=== PATIENT | female | born 1945 | race Caucasian/White ===

== ENCOUNTER 2020-07-27 08:59 | Emergency (ER) | payer MEDICARE, BC, SELFPAY ==
--- NOTE | ~2020-07-27 | XR_ITS ---
EXAMINATION: XR KNEE, LEFT CLINICAL INFORMATION: Pain fall COMPARISON: None TECHNIQUE: Four views of the left knee. FINDINGS: There is a nondisplaced horizontal fracture through the patella. There is knee joint effusion. Distal femur, proximal tibia and fibula are intact. Joint spaces are preserved. XR/XR knee LT 4V IMPRESSION: Nondisplaced horizontal fracture through the patella. Knee joint effusion.
[2020-07-27 09:10] VITALS: BP 132/72; PULSE 85; RESP 14; TEMP 36.5; O2SAT 97; BMI 25.0
--- NOTE | 2020-07-27 09:53 | ED.GENADULT ---
HPI - General Adult General Chief complaint: Extremity Injury, Lower Stated complaint: fall - lt knee and back pain Time Seen by Provider: 07/27/20 09:52 Source: patient Mode of arrival: ambulatory Limitations: no limitations History of Present Illness HPI narrative: 74-year-old female who presents emergency department for evaluation of left knee pain and lower back pain after fall. Patient states that she went for a walk yesterday, hit a patch of ice and fell forward. She states she landed on her left knee. She also believes that she twisted her back when she fell. She was able to get up and finish her walk. She states that today, she has increased pain in her lower back and in her left knee. She states that the lower back pain as a constant, mild to moderate, dull ache which is worse with movement. She states that the the left knee pain is mainly over the kneecap in is worse with movement, the pain is a constant sharp pain which is [id number] in intensity. She denies any head injury or loss of consciousness from the fall. Related Data Allergies Allergy/AdvReac Type Severity Reaction Status Date / Time erythromycin base Allergy Unknown Nausea Unverified 07/27/20 09:09 [Erythromycin Base] Review of Systems Review of Systems: Yes all other systems are reviewed and are negative PMFSH Past Medical History Medical History Asthma Surgical History H/O dilation and curettage Hx of tonsillectomy S/P ear surgery Social History Social History Smoked in Last 30 Days: No Use of substances other than those prescribed or required for medical reasons: No Advance Directives: No Advance Directives Information Provided: No Physical Exam Vital Signs: Vital Signs: Last Vital Signs Temp 98.1 F 07/27/20 12:35 Pulse 78 07/27/20 12:35 Resp 16 07/27/20 12:35 BP 128/73 07/27/20 12:35 Pulse Ox 96 07/27/20 12:35 Body Mass Index 25.0 Const: General: cooperative, healthy appearing and comfortable Nutritional Appearance: average body habitus Orientation/consciousness: oriented to person and oriented to place Limitations: no limitations HENMT: Head: Yes normal to inspection, Yes normocephalic and Yes atraumatic Eyes: General: appearance normal, both eyes and all related structures Pupils: Equal, round and reactive pupils present Neck: Neck: Yes normal visual inspection, Yes full ROM, Yes trachea midline and No tender Chest: Chest palpation & inspection: normal inspection of the chest and normal palpation of entire chest wall Resp: Effort & Inspection: normal respiratory effort Auscultation: clear to auscultation bilaterally Cardio: Rate: regular rate Rhythm: regular rhythm Heart sounds: S1 normal heart sound present, S2 normal heart sound present and no murmurs GI: Inspection: Yes normal to inspection Palpation (GI): Soft to palpation and nontender Auscultation: normal bowel sounds : General: Yes no CVA tenderness Back/Spine/Pelvis: Back: no CVA tenderness Thoracic/Lumbar Spine: thoracic and lumbar spine normal to inspection, straight leg raise negative bilaterally, No thoracic spinal tenderness and No lumbar spinal tenderness Neuro: General: oriented to person and oriented to place Cranial nerves: Yes CN's II-XII intact bilaterally and Yes Equal, round and reactive pupils present Cognition (Neuro): normal cognition Extrem: Other: Ecchymosis with swelling of the left patella bursa, tenderness with palpation to the left knee, full ROM, able to walk without difficulty Course Course Course Narrative: 74-year-old female who fell yesterday landing on her left knee and now presents with left knee and lower back pain. Patient has no significant spinal tenderness therefore do not think that she had spinal x-rays. Patient does have tenderness with palpation over left patella and may have some swelling of her left patella bursa. I did order a four view x-ray of the knee to rule out fracture of the knee/patella. 1344: The patient's x-ray of her knee revealed a nondisplaced patellar fracture. I did discuss this with the patient and with the covering orthopedic MANINDER by text. The patient will be placed in a knee immobilizer and given a cane or crutches. She was given verbal and printed instructions and discharged home. Discharge Plan Discharge Clinical Impression: Left patella fracture, Back sprain, Fall Patient Disposition: Home, Self-Care Instructions: Low Back Strain (ED), Patellar Fracture (ED) Additional Instructions: Your back exam is consistent with a sprain of the soft tissues of her back and I do not think he needs x-rays at this time. The x-ray of your left knee revealed a nondisplaced fracture of the patella (kneecap). Wear the knee immobilizer and use the cane in your right hand. Follow the patella fracture and back strain instructions. Follow-up with the orthopedic provider on-call within 1 week for re-evaluation. Take ibuprofen 200 mg pills, 2 pills every 6 hours as needed for pain. Take Tylenol (acetaminophen) 500 mg pills, 2 pills every 4 to 6 hours as needed for pain. Please return to the emergency department if your symptoms get worse or if you develop any symptoms that are concerning to you.
[2020-07-27 12:35] VITALS: BP 128/73; PULSE 78; RESP 16; TEMP 36.7; O2SAT 96
--- NOTE | 2020-07-27 13:40 | PC.NURSE ---
DR MORENO AT BEDSIDE, PT HAS UTILIZED COLD PACK TO LOWER BACK WHILE AWAITING RESULTS, DECLINED COLD PACK TO KNEE, WATER GIVEN UPON REQUEST
== END 2020-07-27 14:07 | disposition home or self-care (01) ==
PROVIDERS: Emergency Provider Emergency Medicine Emergency Medical Services; PCP Hospitalist
DX: S82.092A Other fracture of left patella, initial encounter for closed fracture (principal); S33.5XXA Sprain of ligaments of lumbar spine, initial encounter; W00.0XXA Fall on same level due to ice and snow, initial encounter; M25.462 Effusion, left knee; Y93.01 Activity, walking, marching and hiking; Y92.480 Sidewalk as the place of occurrence of the external cause; Y99.9 Unspecified external cause status
CPT/HCPCS: 73564; 99283; 99284

== ENCOUNTER → 2020-07-29 11:06 | Outpatient (BNVA) | payer MEDICARE, BC, SELFPAY | PROVIDERS: Visit Provider Physician Assistant | DX: S82.009A Unspecified fracture of unspecified patella, initial encounter for closed fracture (principal) | CPT/HCPCS: 99202 ==

== ENCOUNTER 2020-08-19 11:20 | Outpatient (REF) | payer MEDICARE, BC, SELFPAY ==
--- NOTE | ~2020-08-19 | XR_ITS ---
EXAMINATION: XR KNEE, LEFT CLINICAL INFORMATION: Fracture COMPARISON: Previous x-ray 07/27/2020 TECHNIQUE: Standing AP view of both knees and sunrise view of the left knee of the left knee. FINDINGS: Patella fracture is difficult to visualize. This appears unchanged in alignment on the AP view and not identified on the sunrise view. Bone alignment is normal. Soft tissues are normal. Standing AP view of the right knee is normal. XR/XR knee LT 2V IMPRESSION: Patella fracture difficult to visualize.
== END 2020-08-19 11:21 | disposition home or self-care (01) ==
LOC: HO.HOSX 11:20
PROVIDERS: Visit Provider Physician Assistant
DX: S82.002A Unspecified fracture of left patella, initial encounter for closed fracture (principal); X58.XXXA Exposure to other specified factors, initial encounter; Y93.9 Activity, unspecified; Y92.9 Unspecified place or not applicable; Y99.9 Unspecified external cause status
CPT/HCPCS: 73560; 99212

== ENCOUNTER 2021-01-08 08:45 | Emergency (ER) | payer MEDICARE, BC, SELFPAY ==
--- NOTE | ~2021-01-08 | XR_ITS ---
EXAMINATION: XR KNEE, LEFT CLINICAL INFORMATION: Fall with injury COMPARISON: August 19, 2020 and July 27, 2020 TECHNIQUE: Four views of the left knee. FINDINGS: There is no evidence of acute fracture or dislocation of the left knee. Previously noted fracture is not appreciated. There is degenerative spurring undersurface of the patella. No definite effusion is appreciated. Joint spaces are maintained. XR/XR knee LT 3V IMPRESSION: Degenerative change patellofemoral joint. No definite acute fracture or effusion identified.
--- NOTE | ~2021-01-08 | CT_ITS ---
EXAMINATION: CT FACIAL BONES WITHOUT CONTRAST CLINICAL INFORMATION: Facial bone injury. COMPARISON: None. TECHNIQUE: 3 mm thin axial and 1.5 mm thin sagittal and coronal images of facial bones were obtained without contrast. This CT examination was performed using dose optimization techniques as appropriate, variously including the following: *Automated exposure control *Adjustment of mA and/or kV according to patient size (this includes techniques or standardized protocols for targeted exams where dose is matched to indication/reason for exam; i.e. extremities or head) *Use of iterative reconstruction technique DLP: 1003 mGy-cm. FINDINGS: There is no acute maxillofacial fracture. The pterygoid plates are intact. The zygomatic arches are intact. The lamina papyracea are intact. The orbital rims are intact. There is diffuse mucoperiosteal thickening involving bilateral maxillary, ethmoid, sphenoid and frontal sinuses. No air-fluid level seen. There is mild obliteration of right ostiomeatal complex and bilateral frontoethmoidal recesses from mucoperiosteal thickening. There is a paradoxical left middle turbinate. Mild hypertrophy of the left inferior turbinate is noted. Minimal deviation of the nasal septum is noted without spur. The lamina papyracea are intact. The ethmoid roofs are symmetric. The carotid canals are normally covered by bone. No maxillary periapical disease is seen. The mastoid air cells and visualized middle ear cavities are well-aerated. The orbits are normal. The TMJs are unremarkable. The imaged portions of the brain demonstrate no acute abnormality. Mild degenerative facet joint arthropathy seen in the upper cervical spine. CT/CT facial bones wo con IMPRESSION: No acute maxillofacial, nasal or mandibular fracture. Chronic pansinusitis. Degenerative facet joint arthropathy upper cervical spine.
--- NOTE | ~2021-01-08 | MR_ITS ---
MR BRAIN WITHOUT AND WITH IV CONTRAST CLINICAL INFORMATION: Brain mass seen on CT scan. COMPARISON: Head CT 01/08/2021. TECHNIQUE: Multiplanar, multisequence MRI of the brain was obtained before and after the intravenous administration of 6.5 mL Gadavist. FINDINGS: Redemonstration of a large partially calcified mass within the left aspect of the posterior fossa contacting the undersurface of the left tentorial leaflet and the medial margin of the left sigmoid sinus flow void which is preserved. The lesion measures up to 5 cm TV by 5 cm AP by 5 cm CC. The lesion results in significant mass effect on the left cerebellum, the left middle cerebellar peduncle, and rightward shift of the brainstem. The fourth ventricle remains patent. There is no hydrocephalus, extra-axial surface collection, or herniation. No parenchymal signal abnormality. The major flow voids at the skull base are preserved. There is no acute infarct on diffusion-weighted imaging. There is no intracranial hemorrhage on the gradient recalled echo acquisition. The midline structures are normal. The cerebellar tonsils are normally positioned. The cerebellum and brainstem are normal. The craniocervical junction is normal. Osseous marrow signal intensity is homogenous. The visualized soft tissues are unremarkable. The left frontal sinus is completely opacified and exhibits the sequela of chronic sinusitis. Additional mild to moderate sinus mucosal disease. Hyperostosis frontalis interna. MR/MR head/brain wo/w con IMPRESSION: - There is a large 5 cm partially calcified extra-axial mass within the left aspect of the posterior fossa that is most suggestive of a meningioma. The lesion contacts the medial margin of the left sigmoid sinus which exhibits preserved flow void. The lesion results in significant mass effect on the left cerebellum, the left middle cerebellar peduncle, and rightward shift of the brainstem. The fourth ventricle remains patent. - The left frontal sinus is completely opacified and exhibits the sequela of chronic sinusitis. Additional mild to moderate sinus mucosal disease.
--- NOTE | ~2021-01-08 | CT_ITS ---
EXAMINATION: CT HEAD WITHOUT CONTRAST CLINICAL INFORMATION: Injury. Rule out bleed COMPARISON: None TECHNIQUE: Contiguous axial imaging was performed from the skull base to vertex without intravenous administration of contrast. This CT examination was performed using dose optimization techniques as appropriate, variously including the following: *Automated exposure control *Adjustment of mA and/or kV according to patient size (this includes techniques or standardized protocols for targeted exams where dose is matched to indication/reason for exam; i.e. extremities or head) *Use of iterative reconstruction technique DLP: 694 mGy-cm FINDINGS: Within the left infratentorial region of the cerebellum there is a large partially rim calcified mass measuring 5.3 x 4.4 x 4.0 cm in size which region of origin is difficult to tell as to whether it may be off of the temporal bone or occipital bone. It has heterogeneous density present within it. No uncal or central herniation is appreciated. The lesion is extra-axial. There is midline structure shift of the fourth ventricle by approximately 8 mm. There is no adjacent bony resorption or sclerosis. This has the appearance of a meningioma or meningeal sarcoma. MRI with contrast is recommended. No intracranial hemorrhage is identified. There is mucosal disease seen within the sphenoid sinuses. There is opacification of the left frontal sinus. Mucosal thickening is seen within some ethmoid air cells and the right frontal sinus. Mastoid air cells are aerated. CT/CT head/brain wo con IMPRESSION: Large left extra-axial infratentorial partially rim calcified mass likely related to meningioma or meningeal sarcoma. There is mass effect without evidence of uncal or midline herniation. This critical result was discussed with Dr. Gorman at 10:23 AM on January 08, 2021 and it was ascertained that the content and urgency of the report was understood at the time of direct communication.
[2021-01-08 08:47] VITALS: BP 145/71; PULSE 78; RESP 18; TEMP 35.8; O2SAT 97; BMI 24.1
--- NOTE | 2021-01-08 09:24 | ED.FALL ---
HPI - Fall General Chief Complaint: Fall Stated Complaint: fall Time Seen by Provider: 01/08/21 09:20 History of Present Illness HPI Narrative: Patient complains of pain over the bridge of her nose and 2 black eyes and a bruise on the forehead as well as some left knee pain after tripping and falling yesterday, there was no syncope no fainting no chest pain no dizziness no headache right now she has no headache no nausea or vomiting no blurred vision no dizziness no confusion and she clearly remembers the trip and fall, with no preceding symptoms and remembers everything after the fall Related Data Home Medications Medication Instructions Recorded Confirmed albuterol sulfate 0.63 mg/3 mL 0.63 mg INHALATION Q6H 07/29/20 solution for nebulization Allergies Allergy/AdvReac Type Severity Reaction Status Date / Time erythromycin base Allergy Unknown Nausea Verified 08/19/20 11:30 [Erythromycin Base] Review of Systems Review of Systems: Positive for bruising on forehead and abrasion over nose Negatives are no headache no loss of consciousness no dizziness no vision changes no retrograde amnesia, no preceding dizziness no dizziness no fainting no feeling faint no vision blurriness no neck pain no numbness weakness or tingling no chest pain no shortness of breath no palpitations no abdominal pain no nausea or vomiting no back pain no changes to bowel or bladder Yes all other systems are reviewed and are negative PMFSH Past Medical History Source: nursing notes reviewed Medical History Asthma Surgical History H/O dilation and curettage Hx of tonsillectomy S/P ear surgery Social History Social History Advance Directives: No Advance Directives Information Provided: No Physical Exam Vital Signs: Vital Signs: Last Vital Signs Temp 98.5 F 01/08/21 14:53 Pulse 89 01/08/21 14:53 Resp 16 01/08/21 14:53 BP 134/76 01/08/21 14:53 Pulse Ox 96 01/08/21 14:53 Body Mass Index 24.1 General appearance is no acute distress, the patient is cooperative relaxed The head has an abrasion on the nose, there is mild tenderness to the forehead, there is ecchymosis below both eyes There is no scalp hematoma no tenderness or deformity to the scalp there is no Coffman sign there is no hemotympanum in the ears Pupils equal round reactive to light extraocular motions are intact Neck is supple and nontender The chest is clear to auscultation bilateral Abdomen soft nontender Extremities full range of motion x4 The left knee exam there was some tenderness over the anterior left knee but no deformity no obvious effusion, she could flex it to 90 degrees extend to 180, no obvious ligamentous laxity Neuro gait and balance are normal, cranial nerves 2-12 intact as tested Motor is 5/5 x4 Interaction both expression and comprehension are normal there is no facial asymmetry, sensation is intact and symmetrical in extremities Course Course Course Narrative: CT scan of face and head were done and did not show any acute traumatic injuries but did reveal a mass The radiologist called me and said it appeared to be a meningioma but could not rule out the possibility of meningeal sarcoma and advised MRI for further evaluation of the mass MRI was done and showed a large 5 cm partially calcified extra-axial mass in the left aspect of the posterior fossa. It produce significant mass effect on the left cerebellum and a rightward shift of the brainstem, most likely a meningioma This was discussed with attending physician Michelle who agreed that this did not need emergent neuro surgical intervention but needed close follow-up I contacted the patient's primary care physician who said that he will facilitate close follow-up with Neurosurgery at [facility] I discussed it with both the patient who has full faculties and understanding as well as her daughter explaining that this does not need emergency treatment today but needs neuro surgical evaluation and guidance in the near future within 2 weeks to determine the best plan They understood this and will follow with the primary care doctor with their referral The patient is asymptomatic has no headache has no blurred vision and no neurologic deficit Patient had also complained about left knee pain in this fall and the x-ray did not reveal any broken bones, patient can not ambulate easily but with a limp and will follow with orthopedist if needed for this problem MDM - Fall Lab Data Result diagrams: 01/08/21 11:03 01/08/21 11:03 Labs: Lab Results 01/08/21 01/08/21 Range/Units 11:03 11:03 WBC 10.7 (4.8-10.8) X10*3/uL RBC 4.89 (4.20-5.50) X10*6/uL Hgb 15.1 (12.0-16.0) g/dl Hct 44.5 (37-47) % MCV 91.0 (80-98) fL MCH 30.9 (27.0-33.0) pg MCHC 33.9 (31.0-35.0) g/dl RDW 13.5 (11.0-16.0) % Plt Count 265 (160-400) X10*3/uL MPV 9.6 (9.4-12.3) fL Immature Gran % (Auto) 0.4 (0.0-0.4) % Neut % (Auto) 80.6 H (45-73) % Lymph % (Auto) 8.7 L (20-40) % [place] % (Auto) 8.8 (2-11) % Eos % (Auto) 1.0 (0-4) % Baso % (Auto) 0.5 (0-2) % Lymph # (Auto) 0.9 L (1.2-4.9) X10*3/uL [place] # (Auto) 0.9 (0.1-1.2) X10*3/uL Eos # (Auto) 0.1 (0.0-0.4) X10*3/uL Baso # (Auto) 0.1 (0.0-0.2) X10*3/uL Abs Immat Gran (auto) 0.04 H (0.00-0.03) X10*3/uL Absolute Neuts (auto) 8.6 H (2.0-8.3) X10*3/uL Absolute Nucleated RBC 0.000 (0.0-0.012) X10*3/uL Nucleated RBC % (auto) 0.0 (0.0-0.2) /100WBC Sodium 138 (135-145) mmol/L Potassium 3.8 (3.3-5.1) mmol/L Chloride 103 (96-108) mmol/L Carbon Dioxide 24 (22-29) mmol/L Anion Gap 15 (12-20) BUN 13 (9-16) mg/dL Creatinine 0.74 (0.5-1.4) mg/dL Estim Creat Clear Calc 57.2 Estimated GFR > 60 Random Glucose 90 (60-115) mg/dL Calcium 9.2 (8.4-10.2) mg/dL Discharge Plan Discharge Clinical Impression: Meningioma Patient Disposition: Home, Self-Care Additional Instructions: our CT and MRI demonstrated a large meningioma which may be a malignancy To know the best treatment you will need to see a neurosurgeon for further evaluation within 2 weeks I spoke with your primary doctor who said he will facilitate a referral to a neurosurgeon so follow closely with the primary doctor and you will have an appointment with a neurosurgeon I am giving you a copy of the report and we are giving you a disc to bring to the neurosurgeon so they can see the images The x-ray of her knee showed arthritis but no traumatic injury Follow with primary doctor or orthopedist as needed Referrals: Tyrese Harris MD [Physician] - 2 days (Knee arthritis) Interventions: ED Discharge Assessment Last Done: 01/08/21 15:58 Discharge Date/Time: 01/08/21 15:59
[2021-01-08 11:06] VITALS: BP 146/78; PULSE 78; RESP 16; O2SAT 98
[2021-01-08 11:09] LABS: MANUAL DIFF FLAG NO
[2021-01-08 11:11] LABS: Basophils Absolute Auto 0.1 X10*3/uL (0.0-0.2); Basophils Percent Auto 0.5 % (0-2); Eosinophils Absolute Auto 0.1 X10*3/uL (0.0-0.4); Hematocrit 44.5 % (37-47); Hemoglobin 15.1 g/dl (12.0-16.0); Imm Gran Abs Auto 0.04 X10*3/uL (0.00-0.03); Imm Gran Pct Auto 0.4 % (0.0-0.4); Lymphocytes Absolute Auto 0.9 X10*3/uL (1.2-4.9); Lymphocytes Percent Auto 8.7 % (20-40); Mean Corpuscular HGB Conc 33.9 g/dl (31.0-35.0); Mean Corpuscular Hemoglobin 30.9 pg (27.0-33.0); Mean Platelet Volume 9.6 fL (9.4-12.3); Monocytes Absolute Auto 0.9 X10*3/uL (0.1-1.2); Monocytes Percent Auto 8.8 % (2-11); Neutrophils Absolute Auto 8.6 X10*3/uL (2.0-8.3); Neutrophils Percent Auto 80.6 % (45-73); Platelet Count 265 X10*3/uL (160-400); Red Blood Count 4.89 X10*6/uL (4.20-5.50); Red Cell Distribution Width 13.5 % (11.0-16.0); White Blood Count 10.7 X10*3/uL (4.8-10.8)
[2021-01-08 12:37] LABS: Anion Gap 15 (12-20); Blood Urea Nitrogen 13 mg/dL (9-16); Calcium 9.2 mg/dL (8.4-10.2); Carbon Dioxide 24 mmol/L (22-29); Chloride 103 mmol/L (96-108); Creatinine Clr Calc Pharmacy 57.2; Estimated Glomerular Filt Rate > 60; Glucose Random 90 mg/dL (60-115); Potassium 3.8 mmol/L (3.3-5.1); Sodium 138 mmol/L (135-145)
[2021-01-08 14:53] VITALS: BP 134/76; PULSE 89; RESP 16; TEMP 36.9; O2SAT 96
== END 2021-01-08 15:59 | disposition home or self-care (01) ==
PROVIDERS: Physician Assistant Medical; Emergency Provider Emergency Medicine Emergency Medical Services; PCP Hospitalist
DX: D32.9 Benign neoplasm of meninges, unspecified (principal); M25.562 Pain in left knee; Z91.81 History of falling
CPT/HCPCS: 36415; 70450; 70486; 70553; 73562; 80048; 85025; 99284; 99285; A9585

== ENCOUNTER 2023-12-23 10:22 | Outpatient (AMB) | payer MEDICARE, BC, SELFPAY ==
--- NOTE | 2023-12-23 10:43 | AM.OFFWIN_ITS ---
Intake Vital Signs 12/23/23 10:44 Height 5 ft 5 in Weight 137 lb BMI 22.8 BP 114/76 Blood Pressure Location Lt brachial Position Sitting Pulse 90 Pulse Source Pulse Oximeter Temp Source Oral Pulse Oximetry (%) 98 Oxygen Delivery Method Room Air Intake Visit Reasons: Lt Middle finger infected Intake Note: pt here c/o LT middle finger infection, swelling and pain. Bumped against metal railing, happened 3 days ago Patient Tobacco Use Status: Never used Tobacco Allergies erythromycin base [Erythromycin Base] Allergy (Unknown, Verified 12/23/23 10:44) Nausea Do you need a note to return to daycare/school/sports/work: No HPI Lt Middle finger infected HPI Details This note is constructed using voice recognition software. While every effort has been made to ensure accuracy, professional fighter errors may have been included. The patient is a 78 year old female who presents to the clinic today with concern for left 3rd finger infection. She notes that she hit her finger on a metal bar, it immediately bled, she cleaned it, however the area developed swelling, erythema, and warmth. She does not recall when her last tetanus shot was. She has not done anything to help resolve the area other than apply Neosporin. No fever, chills, or streaking. [facility] Medical History Asthma Surgical History H/O dilation and curettage Hx of tonsillectomy S/P ear surgery Social History Patient Tobacco Use Status: Never used Tobacco Review of Systems Const All systems reviewed & are unremarkable except as noted in HPI and below Physical Exam Vital Signs: Last Vital Signs Pulse 90 12/23/23 10:44 BP 114/76 12/23/23 10:44 Pulse Ox 98 12/23/23 10:44 Oxygen Delivery Method Room Air 12/23/23 10:44 BMI result Body Mass Index 22.8 Const General: cooperative, healthy appearing, comfortable, no acute distress and alert Orientation/consciousness: patient oriented x3 Limitations: no limitations Skin Other: Left 3rd finger erythema from DIP distally, and medially, with point centralized from previous opening. Area is warm, and slightly tender. Strength 5/5 on flexion and extension. General skin exam: no rashes or lesions noted, elasticity normal and turgor normal Neuro General: patient oriented x3 Extrem General: Yes normal to inspection, Yes full ROM, Yes capillary refill normal and Yes normal exam except as noted Psych Appearance: grossly normal Mental Status: mental status grossly normal Speech and movement: Normal speech and movement present Affect: normal affect Assessment & Plan Assessment & Plan (1) Cellulitis of finger of left hand: Code(s): L03.012 - Cellulitis of left finger Plan: Antimicrobial therapy ordered with Keflex for cellulitis. Patient may soak finger in water with Epsom salt. Advised to keep area clean and dry. Advised follow up with PCP for lack of improvement after 48 hours of treatment. Advised monitoring for erythematous streaking which we would be indication of worsening infection, and advised emergency room should that occur. Additionally given puncture wound, tetanus immunization provided today as she was unsure if the previous date. (2) Puncture wound: Code(s): T14.8XXA - Other injury of unspecified body region, initial encounter Plan: At this point in time, it appears to have resolved. We will also provide tetanus immunization today given unknown previous immunization. Plan See above for full details and plan. Orders: Orders TDaP Immunization Today Z23 - Encounter for immunization Medications: New cephalexin 500 mg PO QID 28 caps 0RF 7 days Boostrix Tdap (diphth,pertus(acell),tetanus) 0.5 mL IM ONCE 0.5 mL 0RF NS Z23 - Encounter for immunization Coding Level of Care Code Est Pt Level 3 (21318) Diagnoses Cellulitis of finger of left hand L03.012 Puncture wound T14.8XXA
[2023-12-23 10:44] VITALS: BP 114/76; PULSE 90; O2SAT 98; BMI 22.8
== END 2023-12-23 11:31 | disposition home or self-care (01) ==
PROVIDERS: PCP Hospitalist; Visit Provider Registered Nurse
DX: L03.012 Cellulitis of left finger (principal); T14.8XXA Other injury of unspecified body region, initial encounter
CPT/HCPCS: 90471; 90715; 99213

== ENCOUNTER 2025-04-04 12:51 | Inpatient (IN) | payer MEDICARE, SELFPAY ==
--- OUTSIDE RECORDS SUMMARY | 2024-08-08 05:30 | XMS_ITS ---
Author Organization [facility] Address [address] [place] [address] Care Team Providers Care Lead Applications Developer Name Role Phone Jayme FOWLER, Janelle Primary Care Provider Unavail able Black, Tata Unavailable [phone] Chelly Perry Unavailable [phone] Allergies Allergen (clinical drug ingredient) Drug/Non Drug [...] No Encounters Encounter Location Date Provider Diagnosis [facility] [place] [address] [place] [address] 08/08/2024 Chelly Perry Plan Of Treatment Next Appt Details Provider Name:Tata Coates , 04/09/2025 11:30:00 AM, [address] [place], [address], Progress Notes * Aysha MADISON CDOB: [birth year] (79 yo F)Acc No.[id number]:08/08/2024 Progress Notes Patient: Aysha SINGH Provider: Varsha Perry DPM :1945 A ge:78 Y S ex:Female Date:08/08/2024 Address:[address] [place], [place] [id number] Pcp:Janelle Delacruz NP Subjective: * Chief Complaints: [...] enies. C ardiovascular: Pacemaker d enies. 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 W PW d enies. C [...] 0 08/08/2024 Generated for Sarah Cruz/[place] on: 06/04/2024 04:38 PM EST
[2025-04-04] VITALS (11 sets, daily range): BP systolic 117–148; BP diastolic 60–89; PULSE 75–96; RESP 15–21; TEMP 36.3–37.2; O2SAT 92–98; BMI 24.4; BMI 23.7
--- NOTE | ~2025-04-04 | XR_ITS ---
EXAMINATION: XR HIP, LEFT CLINICAL INFORMATION: fall, left hip fracture COMPARISON: None available. TECHNIQUE: AP pelvis, AP supine, and frog-leg lateral views of the left hip. FINDINGS: There is intra-articular fracture involving the left femur extending across the femoral neck. There is proximal and anterior migration of the femur and varus deformity. No other fractures identified. XR/XR hip LT w [id number] IMPRESSION: Acute left femoral neck fracture. Electronically signed by: Iglesia Ceja MD 04/04/2025 01:38 PM EST RP
--- NOTE | ~2025-04-04 | CT_ITS ---
EXAMINATION: CT HEAD WITHOUT CONTRAST CLINICAL INFORMATION: Fall, patient on blood thinners. Known meningioma. COMPARISON: CT head and MR brain 01/08/2021. TECHNIQUE: Contiguous axial imaging was performed from the skull base to vertex without intravenous administration of contrast. This CT examination was performed using dose optimization techniques as appropriate, variously including the following: *Automated exposure control *Adjustment of mA and/or kV according to patient size (this includes techniques or standardized protocols for targeted exams where dose is matched to indication/reason for exam; i.e. extremities or head) *Use of iterative reconstruction technique FINDINGS: There is a large peripherally calcified hyperattenuating extra-axial mass in the left aspect of the posterior fossa, measuring approximately 3.9 x 5.1 x 4.9 cm (AP, TRV, CC). This is most consistent with a stable known meningioma, previously seen on prior imaging from 2020. There is mild surrounding vasogenic edema extending into the left brachium pontis, rightward shift of the fourth ventricle with moderate effacement, and superior bowing of the left tentorium. There is mild mass effect and rightward shift involving the left funmilayo and midbrain, stable. The overall appearance is not significantly changed from 01/08/2021 examination. There is otherwise no evidence of intracranial hemorrhage, extra-axial fluid collection, or acute territorial infarct infarction. No additional mass effect or edema. The lateral and third ventricles are normal in size and configuration. There is no supratentorial midline shift. Negative hyperdense MCA sign. Negative insular ribbon sign. Patchy periventricular and deep white matter hypoattenuation is consistent with mild small vessel ischemic changes. Partial empty sella. Globes and orbital contents image normally. There are bilateral lens replacements. No extracranial soft tissue abnormalities. Mild to moderate mucosal thickening is seen throughout the right greater than left maxillary sinuses, bilateral sphenoid sinuses, and bilateral ethmoid sinuses. The mastoid air cells, and tympanic cavities are normally aerated. No suspicious bony abnormalities. There are no acute fractures evident. There is hyperostosis frontalis internus. CT/CT head/brain wo IV con IMPRESSION: 1. Compared with 01/08/2021, there is an essentially stable large peripherally calcified extra-axial meningioma in the left posterior fossa measuring approximately 3.9 x 5.1 x 4.9 cm. This is essentially unchanged in size. There is similar associated mass effect and perilesional edema in the left posterior fossa as described. 2. There is otherwise no acute intracranial abnormality. There is no fracture evident. 3. There is mild to moderate paranasal sinus disease. Electronically signed by: Quincy Paredes MD 04/04/2025 02:37 PM [facility]I
--- NOTE | ~2025-04-04 | XR_ITS ---
CLINICAL HISTORY: s p Lt hip lillian Single view of the pelvis. COMPARISON: XR left hip dated 04/04/25 at 13:24 EST FINDINGS: Interval left total hip arthroplasty appears in anatomic alignment. No evidence of hardware loosening or failure. Pelvic ring appears intact. Degenerative changes of the partially visualized lower lumbar spine. Visualized portions of the proximal right femur appear intact. IMPRESSION: 1. Anatomic alignment of left total hip arthroplasty without evidence of acute complication. This document has been electronically signed by: Vic Gallegos MD on 04/04/2025 18:21:51
--- NOTE | ~2025-04-04 | XR_ITS ---
EXAMINATION: XR CHEST 1 VIEW HISTORY: fall COMPARISON: There are no prior studies available for comparison. FINDINGS: A single AP portable view of the chest performed at 1:33 PM is submitted. The lungs are expanded and clear. There is no pleural effusion, pneumothorax, or pulmonary vascular congestion. The heart is normal in size. The bones are intact. XR/XR chest 1V IMPRESSION: Clear lungs. Electronically signed by: Leonard Mobley MD 04/04/2025 01:36 PM [facility]
--- NOTE | 2025-04-04 13:13 | ED.FALL ---
HPI - Fall General Chief Complaint: Fall Stated Complaint: WIT FALL X2, LT HIP PAIN -ELLEN Time Seen by Provider: 04/04/25 13:10 Source: patient and EMS Mode of arrival: EMS Limitations: no limitations History of Present Illness ED Provider: JENNIFER CASTRO PA-C HPI Narrative: 79-year-old female presents to the ED today for evaluation of left hip pain status post fall x2 today while at [facility]. Patient reports losing her balance on entrance into the store, fell directly onto her left hip. She was able to stand and ambulate to the pharmacy. Reports sitting down in upon standing, felt her left leg gave out, causing her to fall onto her left hip for 2nd time. She is no longer able to stand/ambulate. Staff at [facility] then called EMS. Patient denies any head strike or LOC. Denies any preceding symptoms. Denies any numbness/tingling/weakness of the left lower extremity. Denies headache or neck pain. Last meal around 0700 today. Related Data Home Medications ?Medication ?Instructions ?Recorded ?Confirmed albuterol sulfate 90 mcg/actuation inhalation 12/23/23 aerosol inhaler atorvastatin 10 mg tablet 10 mg PO DAILY 12/23/23 fluticasone 250 mcg-salmeterol 50 1 ea inhalation BID 12/23/23 mcg/dose blistr powdr for inhalation (Kayden Cowart) Previous Rx's ?Medication ?Instructions ?Recorded cephalexin 500 mg capsule 500 mg PO QID 7 days #28 caps 12/23/23 Allergies Allergy/AdvReac Type Severity Reaction Status Date / Time erythromycin base Allergy Unknown Nausea Verified 04/04/25 13:02 (Erythromycin Base) Review of Systems Review of Systems: Yes all other systems are reviewed and are negative PMFSH Past Medical History Attestation statement: The following information was validated with the patient. Source: old records reviewed and nursing notes reviewed Medical History Asthma Surgical History S/P ear surgery H/O dilation and curettage Hx of tonsillectomy Social History Social History Patient Tobacco Use Status: Never used Tobacco Smoked in Last 30 Days: No Use of substances other than those prescribed or required for medical reasons: No Advance Directives: No Advance Directives Information Provided: Yes Do you have a plan to hurt others: No Plan Physical Exam Vital Signs: Vital Signs: Last Vital Signs Temp 97.8 F 04/04/25 14:56 Pulse 90 04/04/25 14:56 Resp 15 04/04/25 14:56 BP 148/84 H 04/04/25 14:56 Pulse Ox 95 04/04/25 14:56 O2 Del Method Room Air 04/04/25 14:56 BMI result Body Mass Index 24.4 Hypertensive, vitals otherwise WNL General: Well appearing, in no acute distress. Skin: Warm, dry, intact. No rashes or lesions. Head: Normocephalic, atraumatic. No conroy sign, raccoon eyes. EENT: Hearing is intact b/l. Conjunctiva clear. Sclera is anicteric. PERRLA. EOM intact. Moist mucous membranes.? Cardiac: Chest wall symmetric. RRR Lungs: Normal respiratory effort without accessory muscle use. CTA bilaterally. Back: No midline spinous or paraspinal tenderness. No step off deformity. Ext: + left leg shortened, externally rotated. No obvious deformity to left hip however there is palpable step-off along lateral aspect. No palpable fluctuance. No overlying ecchymosis or hematoma. Unable to perform ROM of left hip. Full ROM intact to left ankle/toes. 2+ DP pulse intact. Sensation intact. Neuro: AOx3. Normal speech. Course Course Course Narrative: CBC showing slight leukocytosis to 11.4 with shift. No anemia. H&H stable. Chemistry without acute electrolyte abnormality requiring intervention. No ANNIKA. liver function wnl. coags pending. ekg showing normal sinus rhythm with a rate of 87 beats per minute, QT 396, QTC 476. No acute ischemic changes or ST elevations. Chest x-ray is unremarkable. X-ray of left hip showing a left femoral neck fracture, consistent with my exam findings. > patient medicated with IV Tylenol > I spoke to orthopedic NELL Burrell who recommends admission to medicine with plan for OR in about 1 hour > I spoke with hospitalist luis e who will be down to medically clear the patient and admit > patient agreeable with plan and stable at this time. Medications Administered Discontinued Medications Generic Name Dose Route Start Last Admin Trade Name Evonne PRN Reason Stop Dose Admin Acetaminophen 1,000 mg in 100 mls @ 400 mls/hr 04/04/25 14:20 04/04/25 15:06 Ofirmev IV 04/04/25 14:34 Infused ONCE ONE Infusion Medical Decision Making Medical Decision Making [facility] Narrative: 79-year-old female presents to the ED today for evaluation of left hip pain status post fall x2 today while at [facility]. She is hypertensive, vitals otherwise WNL. She is generally well-appearing and in no acute distress. On exam, left leg shortened, externally rotated. No obvious deformity to left hip however there is palpable step-off along lateral aspect. No palpable fluctuance. No overlying ecchymosis or hematoma. Unable to perform ROM of left hip. Full ROM intact to left ankle/toes. 2+ DP pulse intact. Sensation intact. Differential diagnosis includes contusion, fracture, dislocation. Less likely neurovascular compromise. Unlikely DVT, compartment syndrome, threat to limb. Patient's left hip appears to be fractured. I have ordered x-rays of the left hip however will add on chest x-ray, EKG, screening labs, type and screen for surgical clearance. IV Tylenol ordered for pain. Differential Diagnosis Differential Diagnoses: The differential diagnosis associated with the presentation includes as above. Admission/Observation Consideration of admission/observation: Escalation of care including admission/observation considered Patient admitted to the medical service or management of left femoral neck fracture with plan for OR Consult Healthcare Provider Management of the patient was discussed with: Hospitalist (sonja) and Prop And Scenery Maker (amanda burrell ) Lab Data [facility] Lab Attestation statement: I reviewed the patient's lab results. As above 04/04/25 14:33 04/04/25 14:33 Labs: Lab Results 04/04/25 Range/Units 14:33 WBC 11.4 H (4.8-10.8) X10*3/uL RBC 4.74 (4.20-5.50) X10*6/uL Hgb 15.0 (12.0-16.0) g/dl Hct 43.3 (37.0-47.0) % MCV 91.4 (80.0-98.0) fL MCH 31.6 (27.0-33.0) pg MCHC 34.6 (31.0-35.0) g/dl RDW 12.7 (11.0-16.0) % Plt Count 286 (160-400) X10*3/uL MPV 9.8 (9.4-12.3) fL Immature Gran % (Auto) 0.4 (0.0-0.4) % Neut % (Auto) 82.9 H (45-73) % Lymph % (Auto) 9.5 L (20-40) % [place] % (Auto) 5.6 (2-11) % Eos % (Auto) 1.1 (0-4) % Baso % (Auto) 0.5 (0-2) % Lymph # (Auto) 1.1 L (1.2-4.9) X10*3/uL [place] # (Auto) 0.6 (0.1-1.2) X10*3/uL Eos # (Auto) 0.1 (0.0-0.4) X10*3/uL Baso # (Auto) 0.1 (0.0-0.2) X10*3/uL Abs Immat Gran (auto) 0.05 H (0.00-0.03) X10*3/uL Absolute Neuts (auto) 9.5 H (2.0-8.3) x10*3/uL Absolute Nucleated RBC 0.000 (0.0-0.012) X10*3/uL Nucleated RBC % (auto) 0.0 (0.0-0.2) /100WBC Sodium 137 (135-145) mmol/L Potassium 3.9 (3.3-5.1) mmol/L Chloride 103 (96-108) mmol/L Carbon Dioxide 26 (22-29) mmol/L Anion Gap 12 (12-20) BUN 18 H (9-16) mg/dL Creatinine 0.67 (0.5-1.4) mg/dL Estim Creat Clear Calc 59.2 Estimated GFR > 60 Random Glucose 101 (60-115) mg/dL Calcium 9.0 (8.4-10.2) mg/dL Total Bilirubin 0.7 (0.0-1.0) mg/dL AST 32 H (5-31) U/L ALT 25 (0-31) U/L Alkaline Phosphatase 61 (39-117) U/L Total Protein 7.0 (6.5-8.0) g/dL Albumin 4.2 (3.5-5.0) g/dL Blood Type AB Positive Antibody Screen NEGATIVE Independent Interpretation I performed an independent interpretation of an: Plain X-Ray and CT Scan Interpretation: Chest x-ray without infiltrate or consolidation X-ray left hip with left femoral neck fracture CT head without intracranial bleed. meningioma noted to left, similar in appearance when compared to prior scans. Radiology Impression Discussion of test interpretation with radiology: I have reviewed the radiologist's reading. Radiologist Impression: Procedure(s): XR chest 1V Accession Number(s): [id number] cc: Jennifer Castro~ Reason for Exam: fall EXAMINATION: XR CHEST 1 VIEW HISTORY: fall COMPARISON: There are no prior studies available for comparison. FINDINGS: A single AP portable view of the chest performed at 1:33 PM is submitted. The lungs are expanded and clear. There is no pleural effusion, pneumothorax, or pulmonary vascular congestion. The heart is normal in size. The bones are intact. XR/XR chest 1V IMPRESSION: Clear lungs. Electronically signed by: Leonard Mobley MD 04/04/2025 01:36 PM EST RP Procedure(s): XR hip LT w PEL1V Accession Number(s): [id number] cc: Ermias Andrea DO~ Reason for Exam: fall EXAMINATION: XR HIP, LEFT CLINICAL INFORMATION: fall, left hip fracture COMPARISON: None available. TECHNIQUE: AP pelvis, AP supine, and frog-leg lateral views of the left hip. FINDINGS: There is intra-articular fracture involving the left femur extending across the femoral neck. There is proximal and anterior migration of the femur and varus deformity. No other fractures identified. XR/XR hip LT w [id number] IMPRESSION: Acute left femoral neck fracture. Electronically signed by: Iglesia Ceja MD 04/04/2025 01:38 PM EST RP Independent Historian Clinical information obtained from an independent historian. History obtained from or confirmed by: EMS External Record Review External record reviewed: Inpatient record Prescription Management I considered prescription management with: Pain Medication Social Determinants Patient?s care significantly limited by Social Determinants of Health including: Other Social Determinant of Health Critical Care Time Critical Care Time Critical Care Time: Yes Total Critical Care Time: 35 Attestation: Critical care time in the amount of 35 minutes has been provided to the patient in terms of direct patient care, frequent reevaluation, consultation with ortho and hospitalist, review and interpretation of medical data and results, and management of potentially life-threatening conditions. This is all outside of any medical procedures. Discharge Plan Discharge Clinical Impression: Closed fracture of neck of left femur, Fall Patient Disposition: Admitted As Inpatient Print Language: Korean
--- NOTE | 2025-04-04 13:44 | ECG_ITS ---
Test Reason : hip fracture Blood Pressure : */* mmHG Vent. Rate : 87 BPM Atrial Rate : 87 BPM P-R Int : 204 ms QRS Dur : 90 ms QT Int : 396 ms P-R-T Axes : 74 42 57 degrees QTcB Int : 476 ms Normal sinus rhythm Normal ECG No previous ECGs available Referred By: Jennifer Castro Electronically Signed By: Dudley Naik
--- NOTE | 2025-04-04 14:33 | PC.NURSE ---
zena from [facility] s/p witnessed fall x 2. pt was walking into the store/lost balance/tripped/landing on left hip. able to self ambulate s/p 1st event. sat in chair/stood up to get prescriptions where she then collapsed landing on left hip for second time. -headstrike, -loc, -thinners. refused c-collar via EMS. upon ED arrival - pt a&ox4. vss and up to date. +LLE shortening noted - pending XR to be completed at this time. pt otherwise on RA w/o difficulty - no sob/wob noted. respirations even/unlabored. plan of care ongoing. call buckley placed within reach.
[2025-04-04 14:52] LABS: MANUAL DIFF FLAG NO
[2025-04-04 14:58] LABS: Hematocrit 43.3 % (37.0-47.0); Hemoglobin 15.0 g/dl (12.0-16.0); Imm Gran Abs Auto 0.05 X10*3/uL (0.00-0.03); Imm Gran Pct Auto 0.4 % (0.0-0.4); Lymphocytes Absolute Auto 1.1 X10*3/uL (1.2-4.9); Mean Corpuscular HGB Conc 34.6 g/dl (31.0-35.0); Mean Corpuscular Hemoglobin 31.6 pg (27.0-33.0); Mean Corpuscular Volume 91.4 fL (80.0-98.0); NRBC Abs Auto 0.000 X10*3/uL (0.0-0.012); NRBC Pct Auto 0.0 /100WBC (0.0-0.2); Platelet Count 286 X10*3/uL (160-400); Red Blood Count 4.74 X10*6/uL (4.20-5.50); White Blood Count 11.4 X10*3/uL (4.8-10.8)
--- NOTE | 2025-04-04 15:05 | PC.NURSE ---
report provided to RN in PACU at this time. hospitalist bedside speaking w/ pt.
--- NOTE | 2025-04-04 15:21 | HO.ANESPROP2 ---
HPI - Anesthesia Eval Consult details Narrative: left hip fracture, for left lillian PMFSH Active Problems Active Problems: All Active Problems Fall (Acute) Closed fracture of neck of left femur (Acute) Patella fracture (Acute) Past Medical History Medical History Asthma Family History Family history of problems with anesthesia: No Surgical History Surgical History S/P ear surgery H/O dilation and curettage Hx of tonsillectomy History of Problems with Anesthesia: No Social History Social History Patient Tobacco Use Status: Never used Tobacco Advance Directives: No Advance Directives Information Provided: Yes Do you have a plan to hurt others: No Plan Meds Allergies Allergy/AdvReac Type Severity Reaction Status Date / Time erythromycin base Allergy Unknown Nausea Verified 04/04/25 13:02 (Erythromycin Base) Home Medications ?Medication ?Instructions ?Recorded ?Confirmed ?Last Taken ?Type albuterol sulfate 90 mcg/actuation inhalation 12/23/23 Unknown History aerosol inhaler atorvastatin 10 mg tablet 10 mg PO DAILY 12/23/23 Unknown History fluticasone 250 mcg-salmeterol 50 1 ea inhalation BID 12/23/23 Unknown History mcg/dose blistr powdr for inhalation (Chandrakantxela Inhub) Exam Height,Weight and Vital Signs: Height 5 ft 5 in Weight 66.6 kg Last Vital Signs Temp 97.8 F 04/04/25 14:56 Pulse 90 04/04/25 14:56 Resp 15 04/04/25 14:56 BP 148/84 H 04/04/25 14:56 Pulse Ox 95 04/04/25 14:56 O2 Del Method Room Air 04/04/25 14:56 Pertinent Lab Results Pertinent Lab Results: Laboratory Tests 04/04/25 14:33 WBC 11.4 H RBC 4.74 Hgb 15.0 Hct 43.3 MCV 91.4 MCH 31.6 MCHC 34.6 RDW 12.7 Plt Count 286 MPV 9.8 Immature Gran % (Auto) 0.4 Neut % (Auto) 82.9 H Lymph % (Auto) 9.5 L Schley % (Auto) 5.6 Eos % (Auto) 1.1 Baso % (Auto) 0.5 Lymph # (Auto) 1.1 L Schley # (Auto) 0.6 Eos # (Auto) 0.1 Baso # (Auto) 0.1 Abs Immat Gran (auto) 0.05 H Absolute Neuts (auto) 9.5 H Absolute Nucleated RBC 0.000 Nucleated RBC % (auto) 0.0 Airway Mallampati Class: II TM Dist: >3cm Neck ROM: Limited Heart: rrr Lungs: cta Assessment and Plan Assessment Anesthesia Assessment: Anesthesia Plan Discussed and Chart Reviewed Final Anesthetic Review Family History of Problems with Anesthesia: No History of Problems with Anesthesia: No NPO: Yes ASA Class: II and Emergency Final Preanesthetic Review: No Changes in Pt Med Stat, Meds/Allgs Chart Reviewed, Consent Obtained/Reviewed and Anes Risks/Benef Reviewed Patient Risk: Low Procedure Risk: Intermediate Anesthetic Plan Anesthetic Plan: GA and Agree w/ Assess. and Plan Disposition: Standard PACU
[2025-04-04 15:23] LABS: Alanine Aminotransferase 25 U/L (0-31); Albumin Level 4.2 g/dL (3.5-5.0); Alkaline Phosphatase 61 U/L (39-117); Anion Gap 12 (12-20); Aspartate Amino Transferase 32 U/L (5-31); Blood Urea Nitrogen 18 mg/dL (9-16); Calcium 9.0 mg/dL (8.4-10.2); Carbon Dioxide 26 mmol/L (22-29); Chloride 103 mmol/L (96-108); Creatinine Clr Calc Pharmacy 59.2; Estimated Glomerular Filt Rate > 60; Potassium 3.9 mmol/L (3.3-5.1); Sodium 137 mmol/L (135-145); Total Protein 7.0 g/dL (6.5-8.0)
[2025-04-04 15:40] LABS: INTERNATIONAL NORM RATIO 0.9 (0.9-1.1); Prothrombin Time 11.6 SEC (11.2-13.5)
--- NOTE | 2025-04-04 15:45 | PC.NURSE ---
18fr calderon catheter placed for fluid management per MD order. 400ml of clear/dark yellow/non-foul smelling urine noted immediately post output. specimen obtained/sent to lab. general surgeon bedside speaking w/ pt. pt pending transport to the OR at this time. plan of care ongoing. call buckley placed within reach.
--- NOTE | 2025-04-04 15:54 | PM.HPOR ---
History of Present Illness History of Present Illness Date of Service: 04/04/25 Chief complaint: left leg fracture Narrative: Aysha Tan is a 79 year old female ED today for evaluation of left hip pain status post fall x2 today while at [facility]. Patient reports losing her balance on entrance into the store, fell directly onto her left hip. She was able to stand and ambulate to the pharmacy. Reports sitting down in upon standing, felt her left leg gave out, causing her to fall onto her left hip for 2nd time. She is no longer able to stand/ambulate. Staff at [facility] then called EMS. Patient denies any head strike or LOC. Denies any preceding symptoms. Denies any numbness/tingling/weakness of the left lower extremity. Denies headache or neck pain. Last meal around 0700 today. Upon evaluation she is complaining of severe left hip pain. She is previously ambulatory and quite healthy. She is alert and oriented. She does not describe any other pain. [facility] Past Medical History Medical History (Updated 04/04/25 @ 16:13 by Nicholas Escobar MD) Asthma Surgical History Surgical History S/P ear surgery H/O dilation and curettage Hx of tonsillectomy Social History Social History Patient Tobacco Use Status: Never used Tobacco Smoked in Last 30 Days: No Use of substances other than those prescribed or required for medical reasons: No Advance Directives: No Advance Directives Information Provided: Yes Do you have a plan to hurt others: No Plan Meds Allergies Allergy/AdvReac Type Severity Reaction Status Date / Time erythromycin base Allergy Unknown Nausea Verified 04/04/25 13:02 (Erythromycin Base) Active Medications: Current Medications Fentanyl (Fentanyl Citrate/Pf 100 Mcg/2 Ml Vial) 25 mcg IVPUSH Q5M PRN PRN Reason: Pain, Moderate to Severe (Pain Scale 4-10) Stop: 04/04/25 21:22 Naloxone HCl (Naloxone Hcl 0.4 Mg/Ml Vial) 0.04 mg IVPUSH Q5M PRN PRN Reason: Excessive sedation or RR < 8 Ondansetron HCl (Ondansetron Hcl 4 Mg/2 Ml Vial) 4 mg IVPUSH ONCE PRN PRN Reason: Nausea and Vomiting Stop: 04/04/25 21:22 Home Medications ?Medication ?Instructions ?Recorded ?Confirmed ?Last Taken ?Type albuterol sulfate 90 mcg/actuation inhalation 12/23/23 Unknown History aerosol inhaler atorvastatin 10 mg tablet 10 mg PO DAILY 12/23/23 Unknown History fluticasone 250 mcg-salmeterol 50 1 ea inhalation BID 12/23/23 Unknown History mcg/dose blistr powdr for inhalation (Kayden Inhtherese) Physical Exam Vital Signs: Vital Signs: Last Vital Signs Temp 97.8 F 04/04/25 14:56 Pulse 90 04/04/25 14:56 Resp 15 04/04/25 14:56 BP 148/84 H 04/04/25 14:56 Pulse Ox 95 04/04/25 14:56 O2 Del Method Room Air 04/04/25 14:56 BMI result Body Mass Index 24.4 Const: General: cooperative, healthy appearing, no acute distress, well developed and alert Orientation/consciousness: oriented to person and oriented to place HEENT: Head: Yes normal to inspection, Yes normocephalic and Yes atraumatic Mouth: moist mucous membranes Eyes: General: appearance normal, both eyes and all related structures Alignment and Position: alignment normal Conjunctivae: conjunctivae normal EOM: EOMs intact bilaterally Neck: Neck: Yes normal visual inspection and Yes trachea midline Chest: Other: no audible wheezing. Resp: Other: No audible wheezing Effort & Inspection: normal respiratory effort Cardio: Other: Radial pulse palpable with no rythmic abnormalities GI: Other: No abdominal distension Back/Spine/Pelvis: Cervical Spine: normal cervical lordosis Skin: General skin exam: no rashes or lesions noted Neuro: Other: Left lower extremity notable for severe pain with minimal motion. She is firing her EHL/tib ant/gastrocs. Skin intact to light touch. Dorsalis pedis 2+. General: oriented to person, oriented to place and no focal motor deficits Extrem: Other: Visual inspection: Tenderness: ROM: Effusion: Steinmen's Mar's Psych: Appearance: grossly normal and well kempt Mental Status: mental status grossly normal Speech and movement: Normal speech and movement present Affect: normal affect Attitude: cooperative Results Labs 04/04/25 14:33 04/04/25 14:33 Labs: Abnormal lab results 04/04/25 Range/Units 14:33 WBC 11.4 H (4.8-10.8) X10*3/uL Neut % (Auto) 82.9 H (45-73) % Lymph % (Auto) 9.5 L (20-40) % Lymph # (Auto) 1.1 L (1.2-4.9) X10*3/uL Abs Immat Gran (auto) 0.05 H (0.00-0.03) X10*3/uL Absolute Neuts (auto) 9.5 H (2.0-8.3) x10*3/uL BUN 18 H (9-16) mg/dL AST 32 H (5-31) U/L H & H 04/04/25 Range/Units 14:33 Hgb 15.0 (12.0-16.0) g/dl Hct 43.3 (37.0-47.0) % Coagulation 04/04/25 Range/Units 14:33 INR 0.9 (0.9-1.1) All other labs normal. Diagnostic results Hip x-ray: image reviewed (Displaced left femoral neck fracture) Assessment and Plan (1) Closed fracture of neck of left femur: Status: Acute Plan This is a 79-year-old woman with a displaced left femoral neck fracture. She is previously ambulatory. She is quite healthy. She last ate at 07:00. She has been evaluated by our anesthesiologist and myself as well the emergency department staff and she is relatively low risk for surgery. I had a discussion with her regarding treatment options. I recommend left hip hemiarthroplasty. I discussed the risks, benefits and alternatives including but not limited to the risk of re-injury fracture, need further surgery, infection, dislocation as well as medical complications associated with both the fracture and the surgery. She expressed understanding and we will proceed forward accordingly. Quality Stroke Does the patient have a stroke diagnosis?: No VTE Prior VTE?: No VTE Risk Level:: Medical - moderate - high VTE Device Contraindication: Treatment Not Indicated VTE Drug Contraindication: Treatment Not Indicated Procedures Date of Service Date of Service: 04/04/25
--- NOTE | 2025-04-04 16:05 | PC.NURSE ---
pt being transported to the OR at this time.
--- NOTE | 2025-04-04 16:11 | P.HPHOSP_ITS ---
History of Present Illness Date of Service: 04/04/25 Attending physician on admission: Nicholas Escobar Chief Complaint: Left leg pain 79-year-old female with past medical history significant for asthma and glaucoma, who presented to ED after a fall. Patient states that she was at [facility] picking up her medications and lost balance while entering the store fell directly on her left hip. Unable to tolerate standing, EMS was called. On imaging maxillary showed acute left femoral neck fracture. Patient plan on being taken to the OR by Orthopedic surgery. Patient denies any cardiac or renal history. On day-to-day, patient able to perform all her ADLs and IADLs. Review of Systems 2 Review of Systems: 14 point ROS obtained, negative except a s stated above [facility] Medical History (Updated 04/04/25 @ 16:13 by Nicholas Escobar MD) Asthma Surgical History S/P ear surgery H/O dilation and curettage Hx of tonsillectomy Social History Patient Tobacco Use Status: Never used Tobacco Smoked in Last 30 Days: No Use of substances other than those prescribed or required for medical reasons: No Advance Directives: No Advance Directives Information Provided: Yes Do you have a plan to hurt others: No Plan Meds Allergies Allergy/AdvReac Type Severity Reaction Status Date / Time erythromycin base Allergy Unknown Nausea Verified 04/04/25 13:02 (Erythromycin Base) Active Medications: Current Medications Acetaminophen (Acetaminophen 325 Mg Tablet) 650 mg PO Q6H PRN PRN Reason: Pain, Mild 1-3,fever,headache Brimonidine Tartrate (Brimonidine Tartrate 0.2% Oph 5 Ml Bottle) 1 drop EYE- BOTH BID LAVERNE Calcium Carbonate (Calcium Carbonate 750 Mg Tab.Chew) 750 mg PO Q4H PRN PRN Reason: Heartburn Fentanyl (Fentanyl Citrate/Pf 100 Mcg/2 Ml Vial) 25 mcg IVPUSH Q5M PRN PRN Reason: Pain, Moderate to Severe (Pain Scale 4-10) Stop: 04/04/25 21:22 Cefazolin Sodium/Dextrose (Ancef) 2 gm in 50 mls @ 100 mls/hr IV PREOP ONE Stop: 04/04/25 16:27 Sodium Chloride (Ns) 1,000 mls @ 100 mls/hr IVCONT .Q10H LAVERNE Magnesium Hydroxide (Milk Of Magnesia 30 Ml Oral.Susp) 30 ml PO DAILY PRN PRN Reason: Constipation Melatonin (Melatonin 3 Mg Tablet) 6 mg PO BEDTIME PRN PRN Reason: Insomnia Naloxone HCl (Naloxone Hcl 0.4 Mg/Ml Vial) 0.04 mg IVPUSH Q5M PRN PRN Reason: Excessive sedation or RR < 8 Ondansetron HCl (Ondansetron Hcl 4 Mg/2 Ml Vial) 4 mg IVPUSH ONCE PRN PRN Reason: Nausea and Vomiting Stop: 04/04/25 21:22 Sodium Chloride (0.9 % Sodium Chloride Flush 3 Ml Syringe) 3 ml IVFLUSH QSHIFT [facility] Home Medications ?Medication ?Instructions ?Recorded ?Confirmed ?Last Taken ?Type albuterol sulfate 90 mcg/actuation inhalation 12/23/23 Unknown History aerosol inhaler atorvastatin 10 mg tablet 10 mg PO DAILY 12/23/23 Unk nown History fluticasone 250 mcg-salmeterol 50 1 ea inhalation BID 12/23/23 Unknown History mcg/dose blistr powdr for inhalation (Kayden Cowart) Physical Exam 2 Vital Signs and Narrative: Vital Signs: Last Vital Signs Temp 97.8 F 04/04/25 14:56 Pulse 90 04/04/25 14:56 Resp 15 04/04/25 14:56 BP 148/84 H 04/04/25 14:56 Pulse Ox 95 04/04/25 14:56 O2 Del Method Room Air 04/04/25 14:56 BMI result Body Mass Index 24.4 General: AxOx3, No acute distress Head: AT/NC ENT: Moist mucous membranes Neck: supple CVS; RRR, S1 S2 normal Lungs: Clear bilateral breath sounds, no wheezes or crackles Abd: Soft non tender, non distended Ext: LLE shortening, pain MSK: moving all 4 limbs Skin: No cyanosis or edema Psych: Cooperative with exam Neurology: no focal deficit Results Labs 04/04/25 14:33 04/04/25 14:33 Labs: Laboratory Results - last 24 hr 04/04/25 14:33 MCV 91.4 MCH 31.6 MCHC 34.6 RDW 12.7 Plt Count 286 MPV 9.8 Immature Gran % (Auto) 0.4 Neut % (Auto) 82.9 H Lymph % (Auto) 9.5 L Motley % (Auto) 5.6 Eos % (Auto) 1.1 Baso % (Auto) 0.5 Lymph # (Auto) 1.1 L Motley # (Auto) 0.6 Eos # (Auto) 0.1 Baso # (Auto) 0.1 Abs Immat Gran (auto) 0.05 H Absolute Neuts (auto) 9.5 H Absolute Nucleated RBC 0.000 Nucleated RBC % (auto) 0.0 PT 11.6 INR 0.9 Anion Gap 12 Estim Creat Clear Calc 59.2 Estimated GFR > 60 Random Glucose 101 Calcium 9.0 Total Bilirubin 0.7 AST 32 H ALT 25 Alkaline Phosphatase 61 Total Protein 7.0 Albumin 4.2 Blood Type AB Positive Antibody Screen NEGATIVE Imaging Radiologist's Impressions: Impressions Chest X-Ray 04/04/25 13:20 IMPRESSION: Clear lungs. Electronically signed by: Leonard Mobley MD 04/04/2025 01:36 PM EST RP Hip/Pelvis X-Ray 04/04/25 13:20 IMPRESSION: Acute left femoral neck fracture. Electronically signed by: Iglesia Ceja MD 04/04/2025 01:38 PM EST RP Head CT 04/04/25 14:09 IMPRESSION: 1. Compared with 01/08/2021, there is an essentially stable large peripherally calcified extra-axial meningioma in the left posterior fossa measuring approximately 3.9 x 5.1 x 4.9 cm. This is essentially unchanged in size. There is similar associated mass effect and perilesional edema in the left posterior fossa as described. 2. There is otherwise no acute intracranial abnormality. There is no fracture evident. 3. There is mild to moderate paranasal sinus disease. Electronically signed by: Quincy Paredes MD 04/04/2025 02:37 PM EST RP Assessment and Plan (1) Closed fracture of neck of left femur: Qualifiers: Encounter type: initial encounter Qualified Code(s): S72.002A - Fracture of unspecified part of neck of left femur, initial encounter for closed fracture Status: Acute (2) Asthma: Qualifiers: Asthma severity: mild Status: Acute Plan Assessment: 79-year-old female who presented to the hospital after witnessed fall, found to have left leg fracture, Orthopedic surgery to be taken to the OR. Impression Left femoral neck fracture secondary to mechanical fall -imaging reviewed -keep NPO -will initiate IVF -labs ordered -Ortho consulted Glaucoma brimonidine ordered Asthma -will start home meds once med rec is complete Meningionma diagnosed in 2022 patient follows up [id number] with imaging, continue follow up as outpatient. Patient at this time with intermediate risk for procedure, able to proceed with orthopedic surgery as benefits outweigh the risk at this time. Disposition: All questions and concerns with the patient were answered to satisfaction. All pertinent clinical documents, images and labs were reviewed. DISCLAIMER: This document was created using voice recognition software. Any mistakes in the prescription are unintentional. An attempt was made to focus for accuracy, but to expedite availability, some errors may persist. Please contact with any need for correction or further clarification Total time managing care of this patient today: 55 minutes. Quality Stroke Does the patient have a stroke diagnosis?: No VTE Prior VTE?: No VTE Risk Level:: Medical - moderate - high VTE Device Contraindication: Treatment Not Indicated VTE Drug Contraindication: Treatment Not Indicated
[2025-04-04 16:30] LABS: Appearance Urine Clear; Glucose Urine UA Negative (Negative); PH 6.0 (5.0-9.0); Specific Gravity - Urine 1.015 (1.005-1.025)
--- OUTSIDE RECORDS SUMMARY | 2025-04-04 16:39 | XMS_ITS | Patient Health Record ---
Author Organization [facility] Address [address] [place] [id number] Care Team Providers Care Epic Interface Analyst Name Role Phone Nikita Hall Jr Reason For Referral No Information Plan Of Treatment No Information
--- OUTSIDE RECORDS SUMMARY | 2025-04-04 16:39 | XMS_ITS | Patient Health Record ---
Author Organization [facility] Address [address] [place] [address] Care Team Providers Care Compatibility Test Engineer Name Role Phone Jayme FOWLER, Janelle Primary Care Provider Unavail able Black, Tata Unavailable [phone] PericChelly najera Unavailable [phone] Allergies Allergen (clinical drug ingredient) Drug/Non Drug Allergy documented on EMR Reaction Allergy Type Onset Date Status erythromycin erythromycin nausea Drug Allergy A ctive Reason For Referral No Information Medications Medication SIG (Take, Route, Frequency, Duration) Notes Start Date End Date Status Vitamin D Active Vitamin D3 400 UNIT as directed Orally Not-Taking Multivitamin Active Proventil HFA 108 (90 Base) MCG/ACT 2 puffs as needed Inhalation every 4 hrs Not-Takin g Aspirin Adult Low Strength 81 MG 1 tablet Orally Once a day; Duration: 30 day(s) Not-Taking Flaxseed Oil Active Multivitamins as directed Orally Not-Taking Albuterol Sulfate HFA 108 (90 Base) MCG/ACT 1 puff as needed Inhalation every 4 hrs PRN Active Ibandronate Sodium 150 MG Orally Not-Taking Atorvastatin Calcium 10 MG 1 tablet Oral ly Once a day Active Fluzone Not-Taking Keflex 500 MG 1 capsule Orally Fou r times a day; Duration: 10 day(s) 01/23/2015 Not-Taking Atorvastatin Calcium Active Advair Diskus Not-Ta gael Wixela Inhub Not-Aaron ing Colcrys 0.6 MG 1 tablet Orally Once a day; Duration: 10 days Not-Takin g Albuterol prn Not-Taking Calcium Citrate + 315-200 MG-UNIT 1 tablet with meals Orally Twice a day; Duration: 30 day(s) Not-Taking Wixela Inhub 250-50 MCG/ACT 1 puff Inhalation Twice a day Active Flovent HFA 110 MCG/ACT 1 puff Inhalatio n Twice a day Not-Taking Brimonidine Tartrate 0.2 % Ophthalmic; D uration: 30 Days Active Colcrys 0.6 MG 1 tablet Orally Once a day; Duration: 10 days 01/23/2015 Not-Takin tiffanie Social History Tobacco Use: Social History Observation Description Date Details (start date - stop date) Never Smoker NA - NA Tobacco use other than smoking: Question Answer Notes Are you an other tobacco user? No Tobacco Control (Standard) Question Answer Notes Tobacco use: Nonsmoker Additional Findings: Tobacco non-user Current no nsmoker AUDIT-C (Standard) Question Answer Notes Did you have a drink contain ing alcohol in the past year? Yes How often did you have a dri nk containing alcohol in the past year? Monthly or less (1 point) How many drinks did you have on a typical day when you were drinking in the past year? 1 or 2 drinks (0 point) How often did you have six o r more drinks on one occasion in the past year? Never (0 point) Points 1 Interpretation Negative Problems Problem Type SNOMED Code ICD Code Onset Dates Problem Status W/U Status Risk Notes Problem Acquired hammer toe of right foot (4994116323923501) Other hammer toe(s) (acquired), right foot (M20.41) Active confirmed Problem Acquired hammer toe of left foot (8734191951342581) Other hammer toe(s) (acquired), left foot (M20.42) Active confirmed Problem Hallux valgus of right foot (9712197066) Hallux valgus of right foot (M20.11) Active confirmed Problem Hallux valgus of left foot (3093550082) Hallux valgus of left foot (M20.12) Active confirmed Problem Localized, primary osteoarthritis of the ankle and/or foot (250264060) Arthritis of joint of lesser toe, left (M19.072) Active confirmed Problem Localized, primary osteoarthritis of the ankle and/or foot (931376029) Arthritis of joint of lesser toe, right (M19.071) Active confirmed Vital Signs Blood pressure diastolic 72 mm Hg 01/04/2025 Height 5 ft 5 in in 01/04/2025 Blood pressure systolic 120 mm Hg 01/04/2025 Weight 130 lbs 01/04/2025 BMI 21.63 kg/m2 01/04/2025 Procedures Procedure Date Ordered Date Performed Result Body Sit e 52480-SQDJNDK NAIL, 6 OR MORE 06/29/2024 N/A [id number] NAIL, 6 OR MORE 2024 N/A [id number] NAIL, 6 OR MORE 01/04/2025 N/A Encounters Encounter Location Date Provider Diagnosis [address] [address] 06/29/2024 Tata Black Other hammer toe(s) (acquired), right foot M20.41 ; Onychomycosis B35.1 ; Pain in right toe(s) M79.674 ; Arthritis of joint of lesser toe, right M19.071 ; Pain in left toe(s) M79.675 ; Other hammer toe(s) (acquired), left foot M20.42 ; Arthritis of joint of lesser toe, left M19.072 ; Subluxation of metatarsophalangeal joint of toe, initial encounter S93.149A ; Hallux valgus of right foot M20.11 and Hallux valgus of left foot M20.[address] [address] 2024 Tata Black Onychomycosis B35.1 ; Other hammer toe(s) (acquired), left foot M20.42 ; Pain in right toe(s) M79.674 ; Pain in left toe(s) M79.675 and Arthritis of joint of lesser toe, left M19.[address] [address] 01/04/2025 Tata Black Onychomycosis B35.1 ; Other hammer toe(s) (acquired), left foot M20.42 ; Pain in right toe(s) M79.674 ; Pain in left toe(s) M79.675 and Arthritis of joint of lesser toe, left M19.[address] [address] [facility]14[facility] [address] [address] 01/04/2025 Tata Coates Assessments Encounter Date Diagnosis (ICD Code) Assessment Notes Treatment Notes Treatment Clinical Notes Section Notes 06/29/2024 Other hammer toe(s) (acquired), right foot (ICD-10 - M20.41) 06/29/2024 Onychomycosis (ICD-1 0 - B35.1) 2024 Other hammer toe(s) (acquired), left foot (ICD-10 - M20.42) 2024 Onychomycosis (ICD-1 0 - B35.1) 01/04/2025 Onychomycosis (ICD-1 0 - B35.1) 01/04/2025 Other hammer toe(s) (acquired), left foot (ICD-10 - M20.42) 2024 Pain in right toe(s) (ICD-10 - M79.674) 06/29/2024 Pain in right toe(s) (ICD-10 - M79.674) 06/29/2024 Arthritis of joint o f lesser toe, right (ICD-10 - M19.071) 01/04/2025 Pain in right toe(s) (ICD-10 - M79.674) 2024 Pain in left toe(s) (ICD-10 - M79.675) 2024 Arthritis of joint o f lesser toe, left (ICD-10 - M19.072) 01/04/2025 Pain in left toe(s) (ICD-10 - M79.675) 06/29/2024 Pain in left toe(s) (ICD-10 - M79.675) 06/29/2024 Other hammer toe(s) (acquired), left foot (ICD-10 - M20.42) 01/04/2025 Arthritis of joint o f lesser toe, left (ICD-10 - M19.072) 06/29/2024 Arthritis of joint o f lesser toe, left (ICD-10 - M19.072) 06/29/2024 Subluxation of metatarsophalangeal joint of toe, initial encounter (ICD-10 - S93.149A) 06/29/2024 Hallux valgus of rig ht foot (ICD-10 - M20.11) 06/29/2024 Hallux valgus of lef t foot (ICD-10 - M20.12) Plan Of Treatment Pending Test Test Name Order Date *Uric Acid, Serum 01/23/2015 *Sedimentation Rate-Westergren 5 X ray : Foot, left 3V 01/23/2015 X ray : Foot, left 3V 06/29/2024 X ray : Foot, right 3V 06/29/2024 [id number] NAIL, 6 OR MORE 2024 [id number] NAIL, 6 OR MORE 01/04/2025 [id number] NAIL, 6 OR MORE 06/29/2024 66441- Nail Unit Biopsy 04/28/2017 Next Appt Details Provider Name:Tata Najera Jaxon , 04/09/2025 11:30:00 AM, [address] [place], [address], Insurance Providers Payer Name Payer Address Payer Phone Subscriber Number Group Number Insured Name Patient Relationship to Insured Coverage Start Date Coverage End Date [facility] [address] [place] [address] [phone] [id number] Aysha Madison Self - patient is the insured Medical (General) History Medical History History ICD Code mumps measles chicken pox asthma Broken bones CAD (Cholesterol) Cataracts covid-19 Gout Sciatica Meningioma Glaucoma Surgical History Surgery Date(Month/Year) tonsillectomy and adenoidectomy cataract surgery 2010
--- NOTE | 2025-04-04 16:40 | PC.NURSE ---
16:40 - Patient arrived to unit from PACU via bed. Patient alert, oriented and conversing. Patient has positive CMS in left leg and aquacel dressing on left hip intact with scant drainage present. Thomas catheter in place. Patient had personal eye drops and inhaler at bedside, medications removed from patient and handed to loan servicing representative nurse for proper administration/storage. Reached out to Gino Carroll for patient's advair diskus order per patient request, awaiting order. Call buckley within reach. Bed alarm on.
--- NOTE | 2025-04-04 17:07 | PM.OP ---
Brief Operative Note Date of Service: 04/04/25 Pre-op diagnosis: Left femoral neck fx Post-op diagnosis: same Procedure: Left hip hemiarthroplasty Implants: Harrison Accolade2 #5 [id number] with - Surgeon: Willian Hamilton MD Anesthesia: GETA Was an Sole Layer Hand used for this Procedure?: Yes Sole Layer Hand: Francine Carroll Estimated blood loss (mL): 200 IV fluids (mL): 500 Pathology: other Condition: stable Disposition: PACU
[2025-04-04] MEDS: Lactated Ringers 1,000 ML 100 ML IVCONT (19:18)
--- NOTE | 2025-04-04 20:01 | PHA.MEDREC ---
Addendum entered by Ishaan Christianson RPh 04/04/25 20:23: med rec reviewed Original Note: Pharmacy Consult ? Medication Reconciliation Pharmacy has completed the medication reconciliation. Patient was able to confirm all of her medications. Patient had all of her morning medications today.
[2025-04-04] MEDS: Brimonidine Tartrate 0.2% Oph 5 ML BOTTLE 1 DROP EYE-BOTH (20:06)
[2025-04-05] MEDS: 0.9 % Sodium Chloride Flush 3 ML SYRINGE IVFLUSH
[2025-04-05 03:00] VITALS: BP 123/64; PULSE 92; RESP 18; TEMP 36.7; O2SAT 95
[2025-04-05] MEDS: Lactated Ringers 1,000 ML 100 ML IVCONT ×2 (05:36→14:31)
[2025-04-05 05:56] LABS: Hematocrit 33.7 % (37.0-47.0); Hemoglobin 11.5 g/dl (12.0-16.0); Mean Corpuscular HGB Conc 34.1 g/dl (31.0-35.0); Mean Corpuscular Hemoglobin 30.8 pg (27.0-33.0); Mean Corpuscular Volume 90.3 fL (80.0-98.0); NRBC Abs Auto 0.000 X10*3/uL (0.0-0.012); NRBC Pct Auto 0.0 /100WBC (0.0-0.2); Platelet Count 227 X10*3/uL (160-400); Red Blood Count 3.73 X10*6/uL (4.20-5.50); White Blood Count 15.3 X10*3/uL (4.8-10.8)
[2025-04-05 06:10] LABS: Anion Gap 9 (12-20); Blood Urea Nitrogen 13 mg/dL (9-16); Calcium 8.0 mg/dL (8.4-10.2); Carbon Dioxide 23 mmol/L (22-29); Chloride 102 mmol/L (96-108); Creatinine Clr Calc Pharmacy 64.0; Estimated Glomerular Filt Rate > 60; Potassium 4.0 mmol/L (3.3-5.1); Sodium 130 mmol/L (135-145)
--- NOTE | 2025-04-05 07:35 | P.PNOP_ITS ---
Subjective Subjective Date of Service: 04/05/25 Interval history: Postop day 1 status post left hip hemiarthroplasty Patient resting comfortably in bed this morning Pain well managed No acute events overnight No other acute complaints or concerns at this time Physical Exam Vital Signs: Vital Signs: Last Vital Signs Temp 98.1 F 04/05/25 03:00 Pulse 92 04/05/25 03:00 Resp 18 04/05/25 03:00 BP 123/64 04/05/25 03:00 Pulse Ox 95 04/05/25 03:00 O2 Del Method Room Air 04/05/25 03:00 BMI result Body Mass Index 23.7 Extrem: Other: Dressing on left hip clean, dry, intact No evidence of surrounding erythema, ecchymosis No evidence of infection Patient is able to flex and extend the digits of the left foot without di fficulty Compartments soft, nontender Distal sensation intact Capillary refill brisk Procedures Date of Service Date of Service: 04/05/25 Progress Note: A&P Assessment and plan (1) Closed fracture of neck of left femur: Status: Acute Plan 1. Status post left hip hemiarthroplasty DOS 04/04/2025 Continue pain management Begin an ASA for DVT prophylaxis PT/OT eval pending Dispo planning-PT/OT eval, medical clearance Time Spent With Patient Time: Total time managing care of this patient today ____ minutes. Quality Stroke Does the patient have a stroke diagnosis?: No VTE Prior VTE?: No VTE Risk Level:: Medical - moderate - high VTE Device Contraindication: Treatment Not Indicated VTE Drug Contraindication: Treatment Not Indicated
[2025-04-05 07:53] VITALS: BP 146/69; PULSE 87; RESP 18; TEMP 36.4; O2SAT 92
[2025-04-05] MEDS: Brimonidine Tartrate 0.2% Oph 5 ML BOTTLE 1 DROP EYE-BOTH ×2 (07:59→20:14)
--- NOTE | 2025-04-05 08:01 | HO.POSTANES ---
Post Anesthesia Evaluation Post Anesthesia Evaluation Date of Service: 04/05/25 Vital Signs: Vital Signs Temp Pulse Resp BP Pulse Ox O2 Del Method 04/05/25 07:53 97.5 F 87 18 146/69 H 92 Room Air 04/05/25 03:00 98.1 F 92 18 123/64 95 Room Air 04/04/25 23:00 98.8 F 92 18 117/60 92 Room Air Anesthesia: General Mental Status: Awake Pain Control: Satisfactory Nausea/Vomiting: None Hydration: Adequate Anesthesia-Related Issues: No Anes. Related Issues
[2025-04-05 08:25] VITALS: PULSE 88; RESP 16
--- NOTE | 2025-04-05 11:38 | P.PNIM_ITS ---
Subjective Subjective Date of Service: 04/05/25 Interval History: Patient seen and examined at bedside this morning status post left hemiarthroplasty, states that she is feeling well, is tolerating p.o.. Denies any complaints at this time. Review of Systems Review of Systems: Yes all other systems are reviewed and are negative Physical Exam 2 Exam: Exam: General: AxOx3, No acute distress Head: AT/NC ENT: Moist mucous membranes Neck: supple CVS; RRR, S1 S2 normal Lungs: Clear bilateral breath sounds, no wheezes or crackles Abd: Soft non tender, non distended Ext: s/p left hip hemiarthroplasty, wound C/D/I MSK: moving all 4 limbs Skin: No cyanosis or edema Psych: Cooperative with exam Neurology: no focal deficit Vital Signs: Vital Signs: Last Vital Signs Temp 97.5 F 04/05/25 07:53 Pulse 88 04/05/25 08:25 Resp 16 04/05/25 08:25 BP 146/69 H 04/05/25 07:53 Pulse Ox 92 04/05/25 07:53 O2 Del Method Room Air 04/05/25 07:53 BMI result Body Mass Index 23.7 Objective Data Active Medications Acetaminophen (Acetaminophen 325 Mg Tablet) 650 mg PO Q6H PRN PRN Reason: Pain, Mild 1-3,fever,headache Last Admin: 04/05/25 03:52 Dose: 650 mg Documented By: CARMEN Aspirin (Aspirin 325 Mg Tablet) 325 mg PO BID [facility] Atorvastatin Calcium (Atorvastatin Calcium 10 Mg Tablet) 10 mg PO BEDTIME [facility] Last Admin: 04/04/25 20:25 Dose: 10 mg Documented By: CARMEN Brimonidine Tartrate (Brimonidine Tartrate 0.2% Oph 5 Ml Bottle) 1 drop EYE- BOTH BID@0800,2000 [facility] Last Admin: 04/05/25 07:59 Dose: 1 drop Documented By: BAL Calcium Carbonate (Calcium Carbonate 750 Mg Tab.Chew) 750 mg PO Q4H PRN PRN Reason: Heartburn Docusate Sodium (Docusate Sodium 100 Mg Capsule) 100 mg PO BID [facility] Last Admin: 04/05/25 07:59 Dose: 100 mg Documented By: BAL Hydromorphone HCl (Hydromorphone Hcl 1 Mg/Ml Syringe) 0.25 mg IVPUSH Q4H PRN; Protocol PRN Reason: Pain, Severe (Pain Scale 7-10) Lactated Ringer's (Lr) 1,000 mls @ 100 mls/hr IVCONT .Q10H [facility] Last Admin: 04/05/25 05:36 Dose: 100 mls/hr Documented By: MARCY Magnesium Hydroxide (Milk Of Magnesia 30 Ml Oral.Susp) 30 ml PO DAILY PRN PRN Reason: Constipation Melatonin (Melatonin 3 Mg Tablet) 6 mg PO BEDTIME PRN PRN Reason: Insomnia Last Admin: 04/05/25 00:21 Dose: 6 mg Documented By: MARCY Multivitamins/Vitamin C (Multivitamin Tablet) 1 tab PO DAILY [facility] Last Admin: 04/05/25 07:59 Dose: 1 tab Documented By: BAL Naloxone HCl (Naloxone Hcl 0.4 Mg/Ml Vial) 0.04 mg IVPUSH Q5M PRN PRN Reason: Excessive sedation or RR < 8 Pt Own (Fluticasone Propion-Salmeterol [ Wixela Inhub] 250-50 Mcg/Dose Bl 1 each INHALE RBID [facility] Last Admin: 04/05/25 08:20 Dose: 1 each Documented By: PRINCESS Oxycodone HCl (Oxycodone Hcl Immed Release 5 Mg Tablet) 5 mg PO Q4H PRN PRN Reason: Pain, Moderate(Pain Scale 4-6) Sodium Chloride (0.9 % Sodium Chloride Flush 3 Ml Syringe) 3 ml IVFLUSH QSHIFT [facility] Last Admin: 04/05/25 07:59 Dose: Not Given Documented By: BAL Non-Admin Reason: IV Running Vitamin D (Cholecalciferol (Vitamin D3) 25 Mcg Tablet) 25 mcg PO DAILY [facility] Last Admin: 04/05/25 07:59 Dose: 25 mcg Documented By: BAL Labs 04/05/25 05:37 04/05/25 05:37 Labs: Laboratory Results - last 24 hr 04/04/25 04/04/25 04/05/25 14:33 16:01 05:37 MCV 91.4 90.3 MCH 31.6 30.8 MCHC 34.6 34.1 RDW 12.7 12.6 Plt Count 286 227 MPV 9.8 9.5 Immature Gran % (Auto) 0.4 Neut % (Auto) 82.9 H Lymph % (Auto) 9.5 L Sutton % (Auto) 5.6 Eos % (Auto) 1.1 Baso % (Auto) 0.5 Lymph # (Auto) 1.1 L Sutton # (Auto) 0.6 Eos # (Auto) 0.1 Baso # (Auto) 0.1 Abs Immat Gran (auto) 0.05 H Absolute Neuts (auto) 9.5 H Absolute Nucleated RBC 0.000 0.000 Nucleated RBC % (auto) 0.0 0.0 PT 11.6 INR 0.9 Anion Gap 12 9 L Estim Creat Clear Calc 59.2 64.0 Estimated GFR > 60 > 60 Random Glucose 101 103 Calcium 9.0 8.0 L D Total Bilirubin 0.7 AST 32 H ALT 25 Alkaline Phosphatase 61 Total Protein 7.0 Albumin 4.2 Urine Color Yellow Urine Appearance Clear Urine pH 6.0 Ur Specific [place] 1.015 Urine Protein Negative Urine Glucose (UA) Negative Urine Ketones 15 Urine Blood Negative Urine Nitrite Negative Ur Leukocyte Esterase Negative Urine RBC 0-2 Urine WBC 0-5 Ur Squamous Epith Cells 0-2 Urine Bacteria None Seen Hyaline Casts 0-2 Blood Type AB Positive Antibody Screen NEGATIVE Assessment and Plan (1) Closed fracture of neck of left femur: Status: Acute (2) Leukocytosis: Status: Acute (3) Asthma: Status: Acute Plan Assessment: 79-year-old female who presented to the hospital after witnessed fall, found to have left leg fracture, underwent left hip hemiatrhoplasty on 04/04. Impression Left femoral neck fracture secondary to mechanical fall s/p Left hip hemiarthroplasty 04/04 -imaging reviewed -continue ASA 325mg BID for DVT PPx -continue per ortho recs -PT/OT -multimodal pain mgmt Leukocytosis, likely reactive in the setting of surgery -will continue to monitor Glaucoma Continue brimonidine Asthma -continue home inhalers Meningionma diagnosed in 2022 patient follows up [id number] with imaging, continue follow up as outpatient. Disposition: All questions and concerns with the patient were answered to satisfaction. All pertinent clinical documents, images and labs were reviewed. Patient at this time progressing well, if labs stable/improved by tomorrow able to be D/C DISCLAIMER: This document was created using voice recognition software. Any mistakes in the prescription are unintentional. An attempt was made to focus for accuracy, but to expedite availability, some errors may persist. Please contact with any need for correction or further clarification Total time managing care of this patient today: 35 minutes. Quality Stroke Does the patient have a stroke diagnosis?: No VTE Prior VTE?: No VTE Risk Level:: Medical - moderate - high VTE Device Contraindication: Treatment Not Indicated VTE Drug Contraindication: Treatment Not Indicated
[2025-04-05 12:21] VITALS: BP 134/71; PULSE 80; RESP 18; TEMP 36.6; O2SAT 95
--- NOTE | 2025-04-05 15:59 | MHC.CM.PN ---
PT REPORTS SHE LIVES ALONE, BUT HER BROTHER IS STAYING TEMPORARILY SHE IS INDEPENDENT WITH CARE AND USES NO DME AT [facility] SHE SAYS HER SISTER, EUSEBIO, IS HER HCP, COPY REQUESTED PCP: JOSE M VASQUEZ IMM DELIVERED DCP: PT WILL NEED REHAB SHE IS REQUESTING REFERRALS TO [facility]SP[facility]
[2025-04-05 16:00] VITALS: BP 123/72; PULSE 80; RESP 19; TEMP 36.6; O2SAT 96
[2025-04-05 20:00] VITALS: BP 128/64; PULSE 90; RESP 18; TEMP 36.8; O2SAT 94
[2025-04-06] VITALS (8 sets, daily range): BP systolic 108–134; BP diastolic 59–66; PULSE 70–89; RESP 16–18; TEMP 36–36.8; O2SAT 93–96
[2025-04-06] MEDS: Lactated Ringers 1,000 ML 100 ML IVCONT ×2 (01:02→10:15)
[2025-04-06 06:02] LABS: Hematocrit 30.3 % (37.0-47.0); Hemoglobin 10.6 g/dl (12.0-16.0); Mean Corpuscular HGB Conc 35.0 g/dl (31.0-35.0); Mean Corpuscular Hemoglobin 31.4 pg (27.0-33.0); Mean Corpuscular Volume 89.6 fL (80.0-98.0); NRBC Abs Auto 0.000 X10*3/uL (0.0-0.012); NRBC Pct Auto 0.0 /100WBC (0.0-0.2); Platelet Count 192 X10*3/uL (160-400); Red Blood Count 3.38 X10*6/uL (4.20-5.50); White Blood Count 10.1 X10*3/uL (4.8-10.8)
[2025-04-06 06:13] LABS: Anion Gap 9 (12-20); Blood Urea Nitrogen 8 mg/dL (9-16); Calcium 7.7 mg/dL (8.4-10.2); Carbon Dioxide 25 mmol/L (22-29); Chloride 99 mmol/L (96-108); Creatinine Clr Calc Pharmacy 72.2; Estimated Glomerular Filt Rate > 60; Potassium 3.8 mmol/L (3.3-5.1); Sodium 129 mmol/L (135-145)
--- NOTE | 2025-04-06 12:45 | HO.PM.IMPN ---
Subjective Subjective Date of Service: 04/06/25 Interval History: Patient seen and examined at bedside this morning, patient's leukocyte count has improved, mentioned that she was able to tolerate breakfast, persist with mild nausea. No acute overnight events. Review of Systems Review of Systems: Yes all other systems are reviewed and are negative Physical Exam Exam: Exam: General: AxOx3, No acute distress Head: AT/NC ENT: Moist mucous membranes Neck: supple CVS; RRR, S1 S2 normal Lungs: Clear bilateral breath sounds, no wheezes or crackles Abd: Soft non tender, non distended Ext: No edema and no calf tenderness MSK: moving all 4 limbs, LLE w- surgical site c/d/i Skin: No cyanosis or edema Psych: Cooperative with exam Neurology: no focal deficit Vital Signs: Vital Signs: Last Vital Signs Temp 97.7 F 04/06/25 11:41 Pulse 70 04/06/25 11:41 Resp 16 04/06/25 11:41 BP 108/60 04/06/25 11:41 Pulse Ox 96 04/06/25 11:41 O2 Del Method Room Air 04/06/25 11:41 BMI result Body Mass Index 23.7 Objective Data Active Medications Acetaminophen (Acetaminophen 325 Mg Tablet) 650 mg PO Q6H PRN PRN Reason: Pain, Mild 1-3,fever,headache Last Admin: 04/06/25 08:06 Dose: 650 mg Documented By: BAL Aspirin (Aspirin 325 Mg Tablet) 325 mg PO BID [facility] Last Admin: 04/06/25 08:06 Dose: 325 mg Documented By: BAL Atorvastatin Calcium (Atorvastatin Calcium 10 Mg Tablet) 10 mg PO BEDTIME [facility] Last Admin: 04/05/25 20:00 Dose: 10 mg Documented By: JONNY Brimonidine Tartrate (Brimonidine Tartrate 0.2% Oph 5 Ml Bottle) 1 drop EYE-BOTH BID@0800,1999 [facility] Last Admin: 04/06/25 08:13 Dose: Not Given Documented By: BAL Non-Admin Reason: pt took own drops Calcium Carbonate (Calcium Carbonate 750 Mg Tab.Chew) 750 mg PO Q4H PRN PRN Reason: Heartburn Docusate Sodium (Docusate Sodium 100 Mg Capsule) 100 mg PO BID [facility] Last Admin: 04/06/25 08:06 Dose: 100 mg Documented By: BAL Hydromorphone HCl (Hydromorphone Hcl 1 Mg/Ml Syringe) 0.25 mg IVPUSH Q4H PRN; Protocol PRN Reason: Pain, Severe (Pain Scale 7-10) Lactated Ringer's (Lr) 1,000 mls @ 100 mls/hr IVCONT .Q10H [facility] Last Admin: 04/06/25 10:15 Dose: 100 mls/hr Documented By: BAL Magnesium Hydroxide (Milk Of Magnesia 30 Ml Oral.Susp) 30 ml PO DAILY PRN PRN Reason: Constipation Melatonin (Melatonin 3 Mg Tablet) 6 mg PO BEDTIME PRN PRN Reason: Insomnia Last Admin: 04/05/25 00:21 Dose: 6 mg Documented By: MARCY Multivitamins/Vitamin C (Multivitamin Tablet) 1 tab PO DAILY [facility] Last Admin: 04/06/25 08:06 Dose: 1 tab Documented By: BAL Naloxone HCl (Naloxone Hcl 0.4 Mg/Ml Vial) 0.04 mg IVPUSH Q5M PRN PRN Reason: Excessive sedation or RR < 8 Pt Own (Fluticasone Propion-Salmeterol [ Wixela Inhub] 250-50 Mcg/Dose Bl 1 each INHALE RBID [facility] Last Admin: 04/06/25 07:57 Dose: 1 each Documented By: SIDRA Ondansetron HCl (Ondansetron Hcl 4 Mg/2 Ml Vial) 4 mg IVPUSH Q6H PRN PRN Reason: Nausea and Vomiting Last Admin: 04/06/25 00:23 Dose: 4 mg Documented By: MEGAN Oxycodone HCl (Oxycodone Hcl Immed Release 5 Mg Tablet) 5 mg PO Q4H PRN PRN Reason: Pain, Moderate(Pain Scale 4-6) Sodium Chloride (0.9 % Sodium Chloride Flush 3 Ml Syringe) 3 ml IVFLUSH QSHIFT [facility] Last Admin: 04/06/25 08:10 Dose: Not Given Documented By: BAL Non-Admin Reason: IV Running Trazodone HCl (Trazodone Hcl 50 Mg Tablet) 50 mg PO BEDTIME PRN PRN Reason: Insomnia Vitamin D (Cholecalciferol (Vitamin D3) 25 Mcg Tablet) 25 mcg PO DAILY [facility] Last Admin: 04/06/25 08:06 Dose: 25 mcg Documented By: BAL Labs 04/06/25 05:25 04/06/25 05:25 Labs: Laboratory Results - last 24 hr 04/06/25 05:25 MCV 89.6 MCH 31.4 MCHC 35.0 RDW 12.4 Plt Count 192 MPV 10.2 Absolute Nucleated RBC 0.000 Nucleated RBC % (auto) 0.0 Anion Gap 9 L Estim Creat Clear Calc 72.2 Estimated GFR > 60 Random Glucose 97 Calcium 7.7 L Assessment and Plan (1) Closed fracture of neck of left femur: Status: Acute (2) Fall: Status: Acute (3) Asthma: Status: Acute Plan Assessment: 79-year-old female who presented to the hospital after witnessed fall, found to have left leg fracture, underwent left hip hemiatrhoplasty on 04/04. Impression Left femoral neck fracture secondary to mechanical fall s/p Left hip hemiarthroplasty 04/04 -imaging reviewed -continue ASA 325mg BID for DVT PPx -continue per ortho recs -PT/OT -multimodal pain mgmt Leukocytosis, likely reactive in the setting of surgery, resolved Glaucoma Continue brimonidine Asthma -continue home inhalers Meningionma diagnosed in 2022 patient follows up [id number] with imaging, continue follow up as outpatient. Disposition: All questions and concerns with the patient were answered to satisfaction. All pertinent clinical documents, images and labs were reviewed. Patient ok to be discharged once ok by OS and PT/OT DISCLAIMER: This document was created using voice recognition software. Any mistakes in the prescription are unintentional. An attempt was made to focus for accuracy, but to expedite availability, some errors may persist. Please contact with any need for correction or further clarification Total time managing care of this patient today: 35 minutes. Quality Stroke Does the patient have a stroke diagnosis?: No VTE Prior VTE?: No VTE Risk Level:: Medical - moderate - high VTE Device Contraindication: Treatment Not Indicated VTE Drug Contraindication: Treatment Not Indicated
--- NOTE | 2025-04-06 15:46 | MHC.CM.PN ---
Addendum entered by Smiley Thompson 04/07/25 13:56: PT MEDICALLY CLEARED TODAY, TRANSPORT BOOKED FOR 1630 TO [facility] WITH NANCY SOMMERS. CM CALLED [facility] ([phone]) AND INFORMED THE RN OF DC TIME. DCS FAXED TO [facility] AT [phone] Original Note: [facility] (PT FIRST CHOICE) HAS OBTAINED INSURANCE AUTH FOR STR. PT IS NOT YET MEDICALLY CLEARED, TIFFANY MOSCOSOLEANN UPDATED. CM WILL CONTINUE TO FOLLOW FOR ANY CHANGE TO PLAN.
[2025-04-06 16:05] LABS: Glucose, Whole Blood 110 mg/dL (60-115)
[2025-04-06] MEDS: 0.9 % Sodium Chloride Flush 3 ML SYRINGE IVFLUSH (20:02)
[2025-04-06] MEDS: Brimonidine Tartrate 0.2% Oph 5 ML BOTTLE 1 DROP EYE-BOTH (20:02)
[2025-04-07 04:00] VITALS: BP 137/60; PULSE 82; RESP 17; TEMP 36; O2SAT 93
[2025-04-07 06:37] LABS: Hematocrit 29.8 % (37.0-47.0); Hemoglobin 10.3 g/dl (12.0-16.0); Mean Corpuscular HGB Conc 34.6 g/dl (31.0-35.0); Mean Corpuscular Hemoglobin 31.5 pg (27.0-33.0); Mean Corpuscular Volume 91.1 fL (80.0-98.0); NRBC Abs Auto 0.000 X10*3/uL (0.0-0.012); NRBC Pct Auto 0.0 /100WBC (0.0-0.2); Platelet Count 197 X10*3/uL (160-400); Red Blood Count 3.27 X10*6/uL (4.20-5.50); White Blood Count 8.4 X10*3/uL (4.8-10.8)
[2025-04-07 06:59] LABS: Anion Gap 10 (12-20); Blood Urea Nitrogen 7 mg/dL (9-16); Calcium 7.8 mg/dL (8.4-10.2); Carbon Dioxide 25 mmol/L (22-29); Chloride 99 mmol/L (96-108); Creatinine Clr Calc Pharmacy 70.9; Estimated Glomerular Filt Rate > 60; Potassium 3.4 mmol/L (3.3-5.1); Sodium 131 mmol/L (135-145)
[2025-04-07 07:40] VITALS: BP 139/64; PULSE 90; RESP 16; TEMP 36.4; O2SAT 94
[2025-04-07] MEDS: Brimonidine Tartrate 0.2% Oph 5 ML BOTTLE 1 DROP EYE-BOTH (07:50)
[2025-04-07] MEDS: 0.9 % Sodium Chloride Flush 3 ML SYRINGE IVFLUSH (07:51)
[2025-04-07] MEDS: Milk of Magnesia 30 ML ORAL.SUSP PO (10:49)
[2025-04-07 11:20] VITALS: BP 107/54; PULSE 71; RESP 16; TEMP 36.6; O2SAT 94
--- NOTE | 2025-04-07 13:35 | P.DS_ITS ---
DS: Providers Provider Date of Service: 04/07/25 Date of admission: 04/04/25 16:06 Date of discharge: 04/07/25 Primary care physician: Janelle Delacruz NP Consults: 04/04/25 16:10 Consult to Orthopedics Routine Consulting [place] [facility] Reason for consultation: left leg fracture Has provider been notified: No Attending physician on discharge: Nicholas Escobar Discharging clinician: Nicholas Escobar DS: Diagnosis Discharge Diagnosis (1) Closed fracture of neck of left femur: Status: Acute (2) Fall: Status: Acute (3) Asthma: Status: Acute DS: Summary Hospital Course Hospital Course: 79-year-old female who presented to the hospital after witnessed fall, found to have left leg fracture, underwent left hip hemiatrhoplasty on 04/04. Patient to continue with aspirin 325 mg b.i.d., PT/OT. Patient at this time states that she feels well, is tolerating her food, is passing gas. Follow up with Orthopedic surgery as outpatient. Continue with wound care Impression Left femoral neck fracture secondary to mechanical fall s/p Left hip hemiarthroplasty 04/04 -imaging reviewed -continue ASA 325mg BID for DVT PPx -follow up with ortho as outpatient -PT/OT -multimodal pain mgmt Glaucoma Continue brimonidine Asthma -continue home inhalers Hyperlipidemia Continue Atorvastatin 10mg qhs Meningionma diagnosed in 2022 patient follows up [id number] with imaging, continue follow up as outpatient. All new and continued medications were discussed in depth with the patient, and new prescriptions were given directly to patient and/or verification of the prescriptions were sent to patient's preferred pharmacy directly. All side effects were discussed. Follow-up instructions were given. Patient voiced understanding. Patient was given the opportunity ask questions and express concerns, all of which were answered to their satisfaction. Patient was instructed to follow-up with her PCP within 3 to 10 days of discharge and head to the nearest emergency room or call 911 if symptoms worsen or new symptoms develop. This is a summary of the patient's stay; for more complete details please see chart. More than 35 minutes was spent with patient regarding workup, diagnosis and follow-up. Time Attestation Discharge Coordination Time (in mins): 35 minutes Quality: Safe Use of Opioids Does Pt have an Active Cancer Diagnosis on the Problem List?: No Quality: Stroke Does the patient have a stroke diagnosis?: No Physical Exam Exam: Exam: General: AxOx3, No acute distress Head: AT/NC ENT: Moist mucous membranes Neck: supple CVS; RRR, S1 S2 normal Lungs: Clear bilateral breath sounds, no wheezes or crackles Abd: Soft non tender, non distended Ext: No edema and no calf tenderness MSK: moving all 4 limbs Skin: No cyanosis or edema, left hip w/ dressing in place, edema and mild tenderness Psych: Cooperative with exam Neurology: no focal deficit Vital Signs: Vital Signs: Last Vital Signs Temp 97.9 F 04/07/25 11:20 Pulse 71 04/07/25 11:20 Resp 16 04/07/25 11:20 BP 107/54 L 04/07/25 11:20 Pulse Ox 94 04/07/25 11:20 O2 Del Method Room Air 04/07/25 07:40 BMI result Body Mass Index 23.7 DS: Data Data Completed and Pending Pending studies at discharge: Pending at discharge 04/04/25 17:04 Surgical [PTH] Routine Labs on day of discharge: Laboratory Results - last 24 hr 04/06/25 04/07/25 15:47 05:54 WBC 8.4 RBC 3.27 L Hgb 10.3 L Hct 29.8 L MCV 91.1 MCH 31.5 MCHC 34.6 RDW 12.5 Plt Count 197 MPV 10.2 Absolute Nucleated RBC 0.000 Nucleated RBC % (auto) 0.0 Sodium 131 L Potassium 3.4 Chloride 99 Carbon Dioxide 25 Anion Gap 10 L BUN 7 L Creatinine 0.56 Estim Creat Clear Calc 70.9 Estimated GFR > 60 POC Glucose 110 Random Glucose 85 Calcium 7.8 L Discharge Plan Discharge Anticipated Discharge Date/Time: 04/07/25 15:28 Patient Disposition: Xfer SNF Discharge Diagnosis: Left femoral neck fracture Referrals: Mikey Howard [Outside] - 1 Week Referral Note: TRANSFER FOR SHORT TERM REHAB Janelle Delacruz NP [Primary Care Provider, Family Practice] - 1 Week Francine Carroll PA-C [Physician Siene Maker, Orthopedics] - 04/19/25 10:30 am Referral Note: 04/19/25 at 10:30 AM Discharge Medications: New acetaminophen 325 mg Tablet 650 mg PO Q6H PRN (Reason: Pain, Mild 1-3,Fever,Headache) 10 Days Qty: 14 0RF aspirin 325 mg Tablet 325 mg PO BID 30 Days Qty: 60 0RF trazodone 50 mg Tablet 50 mg PO BEDTIME PRN (Reason: Insomnia) 10 Days Qty: 10 0RF melatonin 3 mg Tablet 6 mg PO BEDTIME PRN (Reason: Insomnia) 10 Days Qty: 10 0RF oxycodone 5 mg Tablet 5 mg PO Q4H PRN (Reason: Pain, Moderate(Pain Scale 4-6)) 3 Days Qty: 12 0RF Rx Instructions: Partial Fill upon patient request. Continued multivitamin Tablet 1 tab PO DAILY fluticasone propion-salmeterol [Wixela Inhub] 250-50 mcg/dose blister with device 1 ea inhalation BID flaxseed oil Oil 5 ml MISCELLANEOUS DAILY brimonidine 0.2 % drops 1 drp ophthalmic-Left BID@0800,2000 cholecalciferol (vitamin D3) [Vitamin D3] 25 mcg (1,000 unit) Tablet 25 mcg PO DAILY atorvastatin 10 mg tablet 10 mg PO BEDTIME Discharge Orders: Discharge Order (Routine); Ordered 04/07/25 Ordered By: Nicholas Escobar Diet: Advance to usual diet Activity on Discharge: Use cane or walker Stand Alone Forms: Patient Portal Discharge page Print Language: Albanian Activity Restrictions/Additional Instructions: Physical Therapy for total hip arthroplasty: posterior precautions, gait training, ROM, strength Limit stair climbing No showering, no tub bath-keep dressing clean, dry and intact No driving x 6 weeks Continue Aspirin tabs once a day x 6 weeks [place] [facility] [place] -Bandage/Incision Site Care: -Ice 20mins at a time -Make sure you use a towel or cloth on your skin as a barrier -DO NOT remove the bandage -Keep Bandage clean, dry and intact -Do not get the bandage wet: -No tub bath, pools or hot tubs -If there are any concerns regarding the bandage please call orthopedics: [phone] -Hip Precautions: -Do not bend hip past 90 degrees -Do not cross at your knees or ankles -Do not turn your operative leg inward (avoid twisting the foot in) -Avoid low chairs and deep couches -Use supportive shoes with nonslip soles -Physical Therapy: -Patient is WBAT with the use of a walker -Gait training -Limit stair climbing -Hip range of motion -Strengthening: Quadriceps and hip muscles -Walking: Gait training and gradually increasing distance with walker -Ankle pumps and incentive spirometry to limit the risk of blood clot -Diet: -Resume regular diet as tolerated. -Drink plenty of fluids and eat a high-fiber foods to avoid constipation -This is a common side effect of pain medication) -Take stool softeners as prescribed -Blood Clot Prevention: -Take the prescribed blood thinner as directed for 6 weeks -Perform ankle pumps and walk frequently with the walker and assistance if needed -Report calf pain, swelling, or shortness of breath immediately Care Plan Goals: continue pt/ot, aspirin, follow up with orthopedic surgery Health Concerns: left femoral neck fracture s/p hemiarthroplasty Plan of Treatment: Aspirin for clot prevention pain management continue physical therapy and occupational therapy follow up with orthopedic surgery as outpatient Assessment: 79-year-old female who presented to the hospital after witnessed fall, found to have left leg fracture, underwent left hip hemiatrhoplasty on 04/04. Patient to continue with aspirin 325 mg b.i.d., PT/OT. Patient at this time states that she feels well, is tolerating her food, is passing gas. Follow up with Orthopedic surgery as outpatient. Continue with wound care
[2025-04-07 15:18] VITALS: BP 104/50; PULSE 82; RESP 12; TEMP 36.2; O2SAT 98
--- NOTE | 2025-04-13 09:13 | W.PM.OPN ---
Operative Note Operative Note Date of Service: 04/04/25 Narrative: Date of Service: 04/04/25 Pre-op diagnosis: Left femoral neck fx Post-op diagnosis: same Procedure: Left hip hemiarthroplasty Implants: Beaumont Accolade2 #5 132 with Surgeon: Willian Hamilton MD Anesthesia: GETA Was an Sorting Cows Worker used for this Procedure?: Yes Sorting Cows Worker: Francine Carroll Estimated blood loss (mL): 200 IV fluids (mL): 500 Pathology: other Condition: stable Disposition: PACU Procedure in detail: Patient was brought to the operative room placed in the lateral decubitus position. All bony prominences were well padded and the was prepped and draped in standard sterile fashion. IV antibiotics per weight were administered and a time-out was called to identify proper site proper procedure proper surgeon. Radiographs were available and confirmed. I began by making a curvilinear incision over the posterolateral aspect of the greater trochanter. Dissection was taken down to the tensor fascia which was incised in line with the incision and a Charnley retractor was placed. The hip was internally rotated and the external rotators were identified. All vessels in the area were cauterized and a full-thickness capsular/external rotator layer was developed in a hockey-stick fashion starting just proximal to the piriformis. This layer was tagged and the displaced femoral neck fracture was identified. Clean-up cuts was performed while protecting the posterolateral soft tissues and the head was removed and measured (47mm) on the back table. I then copiously irrigated the acetabulum and removed all bony fragments. Once this was done I used a cookie cutter to lateralize and a Charnley awl to identify the canal and then sequentially broached up to a 132 #5. Her bone quyality was excellent. I then trialed with a standard and a minus head head and a bipolar component matching the femoral head size. I was satisfied with the range of motion and stability and length using a -3. Therefore I removed all instrumentation and copiously irrigated. I then placed my final femoral implant and retrialed. I was satisfied with the implant. My final bipolar components were then placed. I closed the capsular layer with FiberWire and then I performed a layered closure with pat on skin. The patient was placed in sterile dressing extubated brought to recovery room in stable condition there were no known complications.
== END 2025-04-07 17:02 | disposition skilled nursing facility (03) | DRG 522 ==
LOC: HO.ED 15:17 → HO.SSS 16:01 → HO.EDOVER 16:15 → HO.SSSA 16:20 → HO.S3 18:12
PROVIDERS: Physician Assistant Medical; Admitting Provider Student in an Organized Health Care Education/Training Program; Emergency Provider Emergency Medicine; PCP Nurse Practitioner Family; Visit Provider Orthopaedic Surgery
PROC: 0SRS0JZ Replacement of Left Hip Joint, Femoral Surface with Synthetic Substitute, Open Approach (ICD-10-PCS; principal; 2025-04-04 16:00)
DX: S72.002A Fracture of unspecified part of neck of left femur, initial encounter for closed fracture (principal); W19.XXXA Unspecified fall, initial encounter; J45.909 Unspecified asthma, uncomplicated; D32.9 Benign neoplasm of meninges, unspecified; H40.9 Unspecified glaucoma; Z79.51 Long term (current) use of inhaled steroids; Z79.82 Long term (current) use of aspirin; Z79.899 Other long term (current) drug therapy
CPT/HCPCS: 36415; 70450; 71045; 72170; 73502; 80048; 80053; 81001; 82947; 85025; 85027; 85610; 86850; 86900; 86901; 88304; 88305; 88311; 93005; 97116; 97162; 97165; 97535; 99285; C1776; J0131; J0668; J0690; J1100; J2003; J2405; J2470; J2704; J2795; J3010; J7120

== ENCOUNTER → 2025-04-04 13:20 | Outpatient (BNV) | payer MEDICARE, BC, SELFPAY | PROVIDERS: Emergency Provider Emergency Medicine; PCP Nurse Practitioner Family; Visit Provider Radiology Diagnostic Radiology | DX: D32.0 Benign neoplasm of cerebral meninges (principal); J34.9 Unspecified disorder of nose and nasal sinuses; S72.002A Fracture of unspecified part of neck of left femur, initial encounter for closed fracture; Z04.3 Encounter for examination and observation following other accident; Z96.642 Presence of left artificial hip joint | CPT/HCPCS: 70450; 71045 ==

== ENCOUNTER → 2025-04-04 13:44 | Outpatient (BNV) | payer MEDICARE, SELFPAY | PROVIDERS: Admitting Provider Student in an Organized Health Care Education/Training Program; Emergency Provider Emergency Medicine; PCP Nurse Practitioner Family; Visit Provider Internal Medicine Cardiovascular Disease | DX: Z13.6 Encounter for screening for cardiovascular disorders (principal) | CPT/HCPCS: 93010 ==

== ENCOUNTER → 2025-04-04 16:06 | Outpatient (BNV) | payer MEDICARE, BC, SELFPAY | PROVIDERS: Admitting Provider Student in an Organized Health Care Education/Training Program; Emergency Provider Emergency Medicine; PCP Nurse Practitioner Family; Visit Provider Student in an Organized Health Care Education/Training Program | DX: S72.002A Fracture of unspecified part of neck of left femur, initial encounter for closed fracture (principal); W19.XXXA Unspecified fall, initial encounter; J45.909 Unspecified asthma, uncomplicated | CPT/HCPCS: 99222; 99232; 99239 ==

== ENCOUNTER → 2025-04-04 16:06 | Outpatient (BNV) | payer MEDICARE, BC, SELFPAY | PROVIDERS: Admitting Provider Student in an Organized Health Care Education/Training Program; Emergency Provider Emergency Medicine; PCP Nurse Practitioner Family; Visit Provider Orthopaedic Surgery | DX: S72.002A Fracture of unspecified part of neck of left femur, initial encounter for closed fracture (principal) | CPT/HCPCS: 27236; 99024; 99223 ==

== ENCOUNTER 2025-04-19 08:52 | Outpatient (REF) | payer MEDICARE, SELFPAY ==
--- OUTSIDE RECORDS SUMMARY | 2024-08-08 05:30 | XMS_ITS ---
Author Organization [facility] Address [address] [place] [address] Care Team Providers Care Waterproof Bag Sewer Name Role Phone Jayme FOWLER, Janelle Primary Care Provider Unavail able Black, Tata Unavailable [phone] Chelly Perry Unavailable [phone] Allergies Allergen (clinical drug ingredient) Drug/Non Drug [...] No Encounters Encounter Location Date Provider Diagnosis [facility] [place] [address] [place] [address] 08/08/2024 Chelly Perry Plan Of Treatment No Information Progress Notes * Aysha MADISON CDOB: [birth year] (79 yo F)Acc No.[id number]:08/08/2024 Progress Notes Patient: Aysha SINGH Provider: Jackie Perry DPM :1945 A ge:78 Y S ex:Female Date:08/08/2024 Address:[address] [place] [address], [place], [place] Pcp:Janelle Delacruz NP Subjective: * Chief Complaints: [...] enies. C ardiovascular: Pacemaker d enies. 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 W PW d enies. C [...] 08/08/2024 Generated for Sarah emery/Olaf/[place] on: 1 06/20/2024 08:57 AM EST
--- OUTSIDE RECORDS SUMMARY | 2025-04-09 06:30 | XMS_ITS ---
Author Organization [facility] Address [address] [place] [address] Care Team Providers Care Manager Strategic Name Role Phone Jayme FOWLER, Janelle Primary Care Provider Unavail able Tata Coates Unavailable [phone] Encounters Encounter Location Date Provider Diagnosis [facility] [address] [place] [address] 04/09/2025 Tata Coates Plan Of Treatment No Information Progress Notes * Aysha MADISON CDOB: [birth year] (79 yo F)Acc No.[id number]:04/09/2025 Progress Note Patient: Aysha SINGH Provider: César Coates DPM :1945 A ge:79 Y S ex:Female Date:04/09/2025 Address:[address] [place] [address] Pcp:Janelle Delacruz NP Subjective: * Chief Complaints: * * Medical History: Objective: * Vitals: Assessment: Plan: * Treatment: * Images: * The named appointment provid er may or may not be the originator of this progress note, and it is not deemed complete until electronically signed by the appointment provider. Sign off status: Pending * Provider: César Coates DPM Date: 06/09/2024 Generated for Nicolasi rupert/Olaf/eTransmitting on: 06/20/2024 08:57 AM EST
--- NOTE | ~2025-04-19 | XR_ITS ---
EXAMINATION: XR PELVIS 1-2 VIEWS HISTORY: M25.559 - Pain in unspecified hip COMPARISON: Comparison is made with the prior examination dated 04/04/2025. FINDINGS: A single AP view of the pelvis is submitted. The bones are osteopenic. The patient is again noted to be status post left total hip arthroplasty. There is no radiographic evidence of loosening. There is no fracture or dislocation. The soft tissues are unremarkable. XR/XR pelvis 1-2V IMPRESSION: Status post left total hip arthroplasty. Electronically signed by: Leonard Mobley MD 04/19/2025 11:38 AM REMI
--- OUTSIDE RECORDS SUMMARY | 2025-04-20 08:57 | XMS_ITS | Encounter Summary ---
Author Organization [facility] Address [address] [place] [address] Care Team Providers Care Social Scientist Name Role Phone Colten Rogers Primary Care Provider [phone] [phone] Encounter Details Date Type Department Care Team (Late st Contact Info) Description 04/14/2025 Lab Requisition [facility] - Main Lab [address] [facility] [place] [phone] Alexx Grimes MD [address] [place] [phone] Hyperlipidemia, unspecified; Unspecified asthma, uncomplicated; Muscle weakness (generalized) Social History Tobacco Use Types Packs/Day Years Used Date Smoking Tobacco: Never Assessed Comments Unknown Sex and Gender Information Value Date Recorded Sex Assigned at Female 04/06/2025 9:48 AM EST Legal Sex Female 9:46 AM EST Gender Identity Female 04/06/2025 9:48 AM EST Sexual Orientation Choose not to disclose 2024 9:48 AM EST documented as of this encounter Plan of Treatment Not on file documented as of this encounter Procedures Procedure Name Priority Date/Time Associated Diagnosis Comments COMPLETE BLOOD COUNT Routine 04/16/2025 7:45 AM EST Hyperlipidemia, unspecified Unspecified asthma, uncomplicated Muscle weakness (generalized) COMPREHENSIVE METABOLIC PANEL Routine 04/16/2025 7:45 AM EST Hyperlipidemia, unspecified Unspecified asthma, uncomplicated Muscle weakness (generalized) documented in this encounter Results * (ABNORMAL) Comprehensive metabolic panel (04/16/2025 7:45 AM EST) [facility] Sodium 137 133 - 145 mmol/L LAB CHEMISTRY METHOD 04/16/2025 11:46 AM [facility] Potassium 4.3 3.5 - 5.5 mmol/L LAB CHEMISTRY METHOD 04/16/2025 11:46 AM [facility] Chloride 104 96 - 110 mmol/L LAB CHEMISTRY METHOD 04/16/2025 11:46 AM [facility] CO2 29 21 - 32 mmol/L LAB CHEMISTRY METHOD 04/16/2025 11:46 AM [facility] Anion Gap 4 3 - 11 LAB CHEMISTRY METHOD 04/16/2025 11:46 AM [facility] Glucose 77 70 - 100 mg/dL LAB CHEMISTRY METHOD 04/16/2025 11:46 AM [facility] BUN 12 5 - 25 mg/dL LAB CHEMISTRY METHOD 04/16/2025 11:46 AM [facility] Creatinine 0.58 0.50 - 1.10 mg/dL LAB CHEMISTRY METHOD 04/16/2025 11:46 AM [facility] LAB eGFR 91 >=60 mL/min/1. 73m2 LAB CHEMISTRY METHOD 04/16/2025 11:46 AM [facility] LAB Comment:Calculation based on the Chronic Kidney Disease Epidemiology Collaboration (CKD-EPI) equation refit without adjustment for race. BUN/Creatinine Ratio 20.7 LAB CHEMISTRY METHOD 04/16/2025 11:46 AM [facility] Calcium 8.4(L) 8.5 - 10.5 mg/dL LAB CHEMISTRY METHOD 04/16/2025 11:46 AM [facility] AST (SGOT) 29 10 - 42 unit/L LAB CHEMISTRY METHOD 04/16/2025 11:46 AM [facility] ALT (SGPT) 46 10 - 60 unit/L LAB CHEMISTRY METHOD 04/16/2025 11:46 AM [facility] Alkaline Phosphatase 87 42 - 121 unit/L LAB CHEMISTRY METHOD 04/16/2025 11:46 AM [facility] Total Protein 6.2 6.0 - 8.0 g/dL LAB CHEMISTRY METHOD 04/16/2025 11:46 AM [facility] Albumin 3.3 3.2 - 5.0 g/dL LAB CHEMISTRY METHOD 04/16/2025 11:46 AM [facility] Total Bilirubin 0.7 0.0 - 1.4 mg/dL LAB CHEMISTRY METHOD 04/16/2025 11:46 AM [facility] Blood Venous blood specimen / Unknown Venipuncture / Unknown 04/16/2025 7:45 AM EST 04/16/2025 10:38 AM EST us Alexx Grimes MD LAB BLOOD ORDERABLES Final Resu lt [facility] [address] [place] [address], [place] [phone] * (ABNORMAL) Complete blood count (04/16/2025 7:45 AM EST) WBC 7.7 4.8 - 10.8 K/mcL LAB HEMETOLOGY METHOD 04/16/2025 11:08 AM [facility] RBC 3.80 3.80 - 4.80 M/mcL LAB HEMETOLOGY METHOD 04/16/2025 11:08 AM [facility] Hemoglobin 12.1 11.5 - 16.0 g/dL LAB HEMETOLOGY METHOD 04/16/2025 11:08 AM [facility] Hematocrit 36.0 35.0 - 47.0 % LAB HEMETOLOGY METHOD 04/16/2025 11:08 AM [facility] MCV 93.8 79.0 - 98.0 FL LAB HEMETOLOGY METHOD 04/16/2025 11:08 AM [facility] MCH 31.5 27.0 - 32.0 pcg LAB HEMETOLOGY METHOD 04/16/2025 11:08 AM EST [facility] LAB MCHC 33.6 32.0 - 37.0 g/dL LAB HEMETOLOGY METHOD 04/16/2025 11:08 AM [facility] RDW 13.8 11.0 - 15.0 % LAB HEMETOLOGY METHOD 04/16/2025 11:08 AM [facility] Platelets 451(H) 130 - 400 K/mcL LAB HEMETOLOGY METHOD 04/16/2025 11:08 AM [facility] MPV 9.3 7.0 - 11.0 FL LAB HEMETOLOGY METHOD 04/16/2025 11:08 AM [facility] NRBC 0.0 <1.0 % LAB HEMETOLOGY METHOD 04/16/2025 11:08 AM [facility] NRBC Absolute 0.00 <0.10 K/mcL LAB HEMETOLOGY METHOD 04/16/2025 11:08 AM [facility] Blood Venous blood specimen / Unknown Venipuncture / Unknown 04/16/2025 7:45 AM EST 04/16/2025 10:38 AM EST us Alexx Grimes MD LAB BLOOD ORDERABLES Final Resu lt [facility] [address] [place] [address], documented in this encounter Visit Diagnoses Diagnosis Hyperlipidemia, unspecified Unspecified asthma, uncomplicated Muscle weakness (generalized) documented in this encounter Care Teams Social Scientist Relationship Specialty Start Date End Date Colten Rogers PA [address] [place] [address] PCP - General 04/06/25 documented as of this encounter
--- OUTSIDE RECORDS SUMMARY | 2025-04-20 08:57 | XMS_ITS | Encounter Summary ---
Author Organization [facility] Address [address] [place] [address] Care Team Providers Care Supervisor Knitting Name Role Phone Colten Rogers Primary Care Provider [phone] [phone] Encounter Details Date Type Department Care Team (Late st Contact Info) Description 04/08/2025 Lab Requisition [facility] - Main Lab [address] [facility] [place] [phone] Alexx Grimes MD [address] [place] [phone] Displaced fracture of base of neck of left femur, subsequent encounter for closed fracture with routine healing; Aftercare following joint replacement surgery; Presence of left artificial hip joint Social History Tobacco Use Types Packs/Day Years [...] Associated Diagnosis Comments COMPLETE BLOOD COUNT Routine 04/08/2025 6:17 AM EST Displaced fracture of base of neck of left femur, subsequent encounter for closed fracture with routine healing Aftercare following joint replacement surgery Presence of left artificial hip joint COMPREHENSIVE METABOLIC PANEL Routine 04/08/2025 6:17 AM EST Displaced fracture of base of neck of left femur, subsequent encounter for closed fracture with routine healing Aftercare following joint replacement surgery Presence of left artificial hip joint documented in this encounter Results * (ABNORMAL) Comprehensive metabolic panel (04/08/2025 6:17 AM EST) Sodium 136 133 - 145 mmol/L LAB CHEMISTRY METHOD 04/08/2025 10:34 AM [facility] Potassium 3.9 3.5 - 5.5 mmol/L LAB CHEMISTRY METHOD 04/08/2025 10:34 AM [facility] Chloride 103 96 - 110 mmol/L LAB CHEMISTRY METHOD 04/08/2025 10:34 AM [facility] LAB CO2 28 21 - 32 mmol/L LAB CHEMISTRY METHOD 04/08/2025 10:34 AM [facility] LAB Anion Gap 5 3 - 11 LAB CHEMISTRY METHOD 04/08/2025 10:34 AM [facility] Glucose 78 70 - 100 mg/dL LAB CHEMISTRY METHOD 04/08/2025 10:34 AM [facility] BUN 9 5 - 25 mg/dL LAB CHEMISTRY METHOD 04/08/2025 10:34 AM [facility] Creatinine 0.43(L) 0.50 - 1.10 mg/dL LAB CHEMISTRY METHOD 04/08/2025 10:34 AM [facility] eGFR 98 >=60 mL/min/1. 73m2 LAB CHEMISTRY METHOD 04/08/2025 10:34 AM [facility] Comment:Calculation based on the Chronic Kidney Disease Epidemiology Collaboration (CKD-EPI) equation refit without adjustment for race. BUN/Creatinine Ratio 20.9 LAB CHEMISTRY METHOD 04/08/2025 10:34 AM [facility] Calcium 7.7(L) 8.5 - 10.5 mg/dL LAB CHEMISTRY METHOD 04/08/2025 10:34 AM [facility] AST (SGOT) 39 10 - 42 unit/L LAB CHEMISTRY METHOD 04/08/2025 10:34 AM [facility] ALT (SGPT) 35 10 - 60 unit/L LAB CHEMISTRY METHOD 04/08/2025 10:34 AM [facility] Alkaline Phosphatase 73 42 - 121 unit/L LAB CHEMISTRY METHOD 04/08/2025 10:34 AM [facility] Total Protein 5.1(L) 6.0 - 8.0 g/dL LAB CHEMISTRY METHOD 04/08/2025 10:34 AM [facility] Albumin 2.5(L) 3.2 - 5.0 g/dL LAB CHEMISTRY METHOD 04/08/2025 10:34 AM [facility] Total Bilirubin 0.7 0.0 - 1.4 mg/dL LAB CHEMISTRY METHOD 04/08/2025 10:34 AM [facility] Blood Venous blood specimen / Unknown Venipuncture / Unknown 04/08/2025 6:17 AM EST 04/08/2025 9:03 AM EST us Alexx Grimes MD LAB BLOOD ORDERABLES Final Resu lt [facility] [address] [place] [address], * (ABNORMAL) Complete blood count (04/08/2025 6:17 AM EST) WBC 7.8 4.8 - 10.8 K/mcL LAB HEMETOLOGY METHOD 04/08/2025 9:55 AM [facility] RBC 3.20(L) 3.80 - 4.80 M/mcL LAB HEMETOLOGY METHOD 04/08/2025 9:55 AM [facility] Hemoglobin 10.1(L) 11.5 - 16.0 g/dL LAB HEMETOLOGY METHOD 04/08/2025 9:55 AM [facility] Hematocrit 29.5(L) 35.0 - 47.0 % LAB HEMETOLOGY METHOD 04/08/2025 9:55 AM [facility] LAB MCV 92.2 79.0 - 98.0 FL LAB HEMETOLOGY METHOD 04/08/2025 9:55 AM [facility] MCH 31.6 27.0 - 32.0 pcg LAB HEMETOLOGY METHOD 04/08/2025 9:55 AM [facility] MCHC 34.2 32.0 - 37.0 g/dL LAB HEMETOLOGY METHOD 04/08/2025 9:55 AM [facility] LAB RDW 12.8 11.0 - 15.0 % LAB HEMETOLOGY METHOD 04/08/2025 9:55 AM [facility] Platelets 252 130 - 400 K/mcL LAB HEMETOLOGY METHOD 04/08/2025 9:55 AM [facility] MPV 10.3 7.0 - 11.0 FL LAB HEMETOLOGY METHOD 04/08/2025 9:55 AM [facility] NRBC 0.0 <1.0 % LAB HEMETOLOGY METHOD 04/08/2025 9:55 AM [facility] NRBC Absolute 0.00 <0.10 K/mcL LAB HEMETOLOGY METHOD 04/08/2025 9:55 AM [facility] Blood Venous blood specimen / Unknown Venipuncture / Unknown 04/08/2025 6:17 AM EST 04/08/2025 9:03 AM EST us Alexx Grimes MD LAB BLOOD ORDERABLES Final Resu lt [facility] [address] [place] [address], [place] [phone] documented in this encounter Visit Diagnoses Diagnosis Displaced fracture of base of neck of left femur, subsequent encounter for closed fracture with routine healing Aftercare following joint replacement surgery Presence of left artificial hip joint documented in this encounter Care Teams Supervisor Knitting Relationship Specialty Start Date End Date Colten Rogers PA [address] [place] [address] PCP - General 04/06/25 documented as of this encounter
--- OUTSIDE RECORDS SUMMARY | 2025-04-20 08:57 | XMS_ITS | Clinical Summary ---
Author Organization [facility] Address [address] [place] [address] Phone Care Team Providers Care Town Marshal Name Role Phone Colten Rogers Primary Care Provider [phone] [phone] Encounters Date Type Department Care Team Description 04/14/2025 Lab Requisition [facility] [address] [place] [phone] Alexx Grimes MD Hyperlipidemia, unspecified; Unspecified asthma, uncomplicated; Muscle weakness (generalized) 04/11/2025 Lab Requisition [facility] Lab [address] [place] [phone] Alexx Grimes MD Hyperlipidemia, unspecified; Muscle weakness (generalized); Unspecified asthma, uncomplicated 04/08/2025 Lab Requisition [facility] Lab [address] [place] [phone] Alexx Grimes MD Displaced fracture of base of neck of left femur, subsequent encounter for closed fracture with routine healing; Aftercare following joint replacement surgery; Presence of left artificial hip joint from Last 3 Months Social History Tobacco Use Types Packs/Day Years Used Date Smoking Tobacco: Never Assessed Comments Unknown Sex and Gender Information Value Date Recorded Sex Assigned at Female 04/06/2025 9:48 AM EST Legal Sex Female 9:46 AM EST Gender Identity Female 04/06/2025 9:48 AM EST Sexual Orientation Choose not to disclose 2024 9:48 AM EST Plan of Treatment Health Maintenance Due Date Last Done Comments DTaP,Tdap,and Td Vaccines (1 - Tdap) 09/27/1962 Pneumococcal Vaccine: 50+ Ye ars (1 of 2 - PCV) 09/27/1962 Zoster Vaccines (1 of 2) 09/27/1993 RSV Immunization Adult Patie nts (1 - 1-dose 75+ series) 09/27/2018 Depression Screening 05/31/2024 COVID-19 Vaccine (1 - 2024-2 6 season) 2025 Influenza Vaccine (#1) 2025 Cholesterol Screening (Lipid Panel) 04/06/2025 Falls Risk Assessment 04/06/2025 Medicare Annual Wellness Visit 04/06/2025 Osteoporosis Screening (Bone Density Screening) 04/06/2025 Social Influencers of Health Screening 04/06/2025 HIB Vaccines Aged Out No longer eligi ble based on patient's age to complete this topic HPV Vaccines Aged Out No longer eligi ble based on patient's age to complete this topic Hepatitis A Vaccines Aged Out No long er eligible based on patient's age to complete this topic Hepatitis B Vaccines Aged Out No long er eligible based on patient's age to complete this topic IPV Vaccines Aged Out No longer eligi ble based on patient's age to complete this topic MMR Vaccines Aged Out No longer eligi ble based on patient's age to complete this topic Meningococcal ACWY Vaccine Aged Out N o longer eligible based on patient's age to complete this topic Meningococcal B Vaccine Aged Out No l onger eligible based on patient's age to complete this topic RSV Immunization Patients Un barrera 20 months Aged Out No longer eligible b ased on patient's age to complete this topic Varicella Vaccines Aged Out No longer eligible based on patient's age to complete this topic Procedures Procedure Name Priority Date/Time Associated Diagnosis Comments COMPREHENSIVE METABOLIC PANEL Routine 04/16/2025 7:45 AM EST Hyperlipidemia, unspecified Unspecified asthma, uncomplicated Muscle weakness (generalized) COMPLETE BLOOD COUNT Routine 04/16/2025 7:45 AM EST Hyperlipidemia, unspecified Unspecified asthma, uncomplicated Muscle weakness (generalized) COMPLETE BLOOD COUNT Routine 04/12/2025 6:39 AM EST Hyperlipidemia, unspecified Muscle weakness (generalized) Unspecified asthma, uncomplicated BASIC METABOLIC PANEL Routine 04/12/2025 6:39 AM EST Hyperlipidemia, unspecified Muscle weakness (generalized) Unspecified asthma, uncomplicated COMPREHENSIVE METABOLIC PANEL Routine 04/08/2025 6:17 AM EST Displaced fracture of base of neck of left femur, subsequent encounter for closed fracture with routine healing Aftercare following joint replacement surgery Presence of left artificial hip joint COMPLETE BLOOD COUNT Routine 04/08/2025 6:17 AM EST Displaced fracture of base of neck of left femur, subsequent encounter for closed fracture with routine healing Aftercare following joint replacement surgery Presence of left artificial hip joint from Last 3 Months Results * (ABNORMAL) Complete blood count (04/16/2025 7:45 AM EST) Only the most recent of3 resultswithin the time period is included. WBC 7.7 4.8 - 10.8 K/mcL LAB HEMETOLOGY METHOD 04/16/2025 11:08 AM [facility] RBC 3.80 3.80 - 4.80 M/mcL LAB HEMETOLOGY METHOD 04/16/2025 11:08 AM [facility] Hemoglobin 12.1 11.5 - 16.0 g/dL LAB HEMETOLOGY METHOD 04/16/2025 11:08 AM [facility] Hematocrit 36.0 35.0 - 47.0 % LAB HEMETOLOGY METHOD 04/16/2025 11:08 AM [facility] MCV 93.8 79.0 - 98.0 FL LAB HEMETOLOGY METHOD 04/16/2025 11:08 AM [facility] MCH 31.5 27.0 - 32.0 pcg LAB HEMETOLOGY METHOD 04/16/2025 11:08 AM [facility] MCHC 33.6 32.0 - 37.0 g/dL LAB HEMETOLOGY METHOD 04/16/2025 11:08 AM [facility] RDW 13.8 11.0 - 15.0 % LAB HEMETOLOGY METHOD 04/16/2025 11:08 AM [facility] Platelets 451(H) 130 - 400 K/mcL LAB HEMETOLOGY METHOD 04/16/2025 11:08 AM [facility] MPV 9.3 7.0 - 11.0 FL LAB HEMETOLOGY METHOD 04/16/2025 11:08 AM [facility] NRBC 0.0 <1.0 % LAB HEMETOLOGY METHOD 04/16/2025 11:08 AM [facility] NRBC Absolute 0.00 <0.10 K/mcL LAB HEMETOLOGY METHOD 04/16/2025 11:08 AM [facility] Blood Venous blood specimen / Unknown Venipuncture / Unknown 04/16/2025 7:45 AM EST 04/16/2025 10:38 AM EST us Alexx Grimes MD LAB BLOOD ORDERABLES Final Resu lt [facility] [address] [place] [address], * (ABNORMAL) Comprehensive metabolic panel (04/16/2025 7:45 AM EST) Only the most recent of2 resultswithin the time period is included. Sodium 137 133 - 145 mmol/L LAB CHEMISTRY METHOD 04/16/2025 11:46 AM [facility] Potassium 4.3 3.5 - 5.5 mmol/L LAB CHEMISTRY METHOD 04/16/2025 11:46 AM [facility] Chloride 104 96 - 110 mmol/L LAB CHEMISTRY METHOD 04/16/2025 11:46 AM [facility] CO2 29 21 - 32 mmol/L LAB CHEMISTRY METHOD 04/16/2025 11:46 AM [facility] Anion Gap 4 3 - 11 LAB CHEMISTRY METHOD 04/16/2025 11:46 AM [facility] Glucose 77 70 - 100 mg/dL LAB CHEMISTRY METHOD 04/16/2025 11:46 AM [facility] BUN 12 5 - 25 mg/dL LAB CHEMISTRY METHOD 04/16/2025 11:46 AM [facility] Creatinine 0.58 0.50 - 1.10 mg/dL LAB CHEMISTRY METHOD 04/16/2025 11:46 AM [facility] eGFR 91 >=60 mL/min/1. 73m2 LAB CHEMISTRY METHOD 04/16/2025 11:46 AM [facility] Comment:Calculation based on the Chronic Kidney Disease Epidemiology Collaboration (CKD-EPI) equation refit without adjustment for race. BUN/Creatinine Ratio 20.7 LAB CHEMISTRY METHOD 04/16/2025 11:46 AM [facility] Calcium 8.4(L) 8.5 - 10.5 mg/dL LAB CHEMISTRY METHOD 04/16/2025 11:46 AM [facility] AST (SGOT) 29 10 - 42 unit/L LAB CHEMISTRY METHOD 04/16/2025 11:46 AM [facility] ALT (SGPT) 46 10 - 60 unit/L LAB CHEMISTRY METHOD 04/16/2025 11:46 AM [facility] Alkaline Phosphatase 87 42 - 121 unit/L LAB CHEMISTRY METHOD 04/16/2025 11:46 AM [facility] Total Protein 6.2 6.0 - 8.0 g/dL LAB CHEMISTRY METHOD 04/16/2025 11:46 AM [facility] Albumin 3.3 3.2 - 5.0 g/dL LAB CHEMISTRY METHOD 04/16/2025 11:46 AM [facility] Total Bilirubin 0.7 0.0 - 1.4 mg/dL LAB CHEMISTRY METHOD 04/16/2025 11:46 AM [facility] Blood Venous blood specimen / Unknown Venipuncture / Unknown 04/16/2025 7:45 AM EST 04/16/2025 10:38 AM EST us Alexx Grimes MD LAB BLOOD ORDERABLES Final Resu lt [facility] [address] [place] [address], [place] [phone] * Basic metabolic panel (04/12/2025 6:39 AM EST) Pathologist [facility] Sodium 137 133 - 145 mmol/L LAB CHEMISTRY METHOD 04/12/2025 11:03 AM [facility] Potassium 4.2 3.5 - 5.5 mmol/L LAB CHEMISTRY METHOD 04/12/2025 11:03 AM [facility] Chloride 104 96 - 110 mmol/L LAB CHEMISTRY METHOD 04/12/2025 11:03 AM [facility] CO2 27 21 - 32 mmol/L LAB CHEMISTRY METHOD 04/12/2025 11:03 AM [facility] Anion Gap 6 3 - 11 LAB CHEMISTRY METHOD 04/12/2025 11:03 AM [facility] Glucose 82 70 - 100 mg/dL LAB CHEMISTRY METHOD 04/12/2025 11:03 AM [facility] BUN 12 5 - 25 mg/dL LAB CHEMISTRY METHOD 04/12/2025 11:03 AM [facility] Creatinine 0.51 0.50 - 1.10 mg/dL LAB CHEMISTRY METHOD 04/12/2025 11:03 AM [facility] eGFR 94 >=60 mL/min/1. 73m2 LAB CHEMISTRY METHOD 04/12/2025 11:03 AM [facility] Comment:Calculation based on the Chronic Kidney Disease Epidemiology Collaboration (CKD-EPI) equation refit without adjustment for race. BUN/Creatinine Ratio 23.5 LAB CHEMISTRY METHOD 04/12/2025 11:03 AM [facility] Calcium 8.6 8.5 - 10.5 mg/dL LAB CHEMISTRY METHOD 04/12/2025 11:03 AM EST [facility] Blood Venous blood specimen / Unknown Venipuncture / Unknown 04/12/2025 6:39 AM EST 04/12/2025 10:19 AM EST us Alexx Grimes MD LAB BLOOD ORDERABLES Final Resu lt [facility] [address] [place] [address], [place] [phone] from Last 3 Months Insurance [id number] Care Teams Town Marshal Relationship Specialty Start Date End Date Colten Rogers PA [address] [place] [address] PCP - General 04/06/25
--- OUTSIDE RECORDS SUMMARY | 2025-04-20 08:57 | XMS_ITS | Patient Health Record ---
Author Organization [facility] Address [address] [place] [phone] Care Team Providers Care Warp Clamper Name Role Phone Nikita Hall Jr Reason For Referral No Information Plan Of Treatment No Information
--- OUTSIDE RECORDS SUMMARY | 2025-04-20 08:57 | XMS_ITS | Patient Health Record ---
Author Organization [facility] Address [address] [place] [address] Care Team Providers Care Pretzel Packer Name Role Phone Jayme FOWLER, Janelle Primary Care Provider Unavail able Black, Tata Unavailable [phone] PericChelly najera Unavailable [phone] Allergies Allergen (clinical drug ingredient) Drug/Non Drug [...] Problem Acquired hammer toe of right foot (8969883816016056) Other hammer toe(s) (acquired), right foot (M20.41) Active confirmed Problem Acquired hammer toe of left foot (3866370139499928) Other hammer toe(s) (acquired), left foot (M20.42) Active confirmed Problem Hallux valgus of right foot (6991489051) Hallux valgus of right foot (M20.11) Active confirmed Problem Hallux valgus of left foot (6856981730) Hallux valgus of left foot (M20.12) Active confirmed Problem Localized, primary osteoarthritis of the ankle and/or foot (562856812) Arthritis of joint of lesser toe, left (M19.072) Active confirmed Problem Localized, primary osteoarthritis of the ankle and/or foot (304550149) Arthritis of joint of lesser toe, right (M19.071) Active confirmed Vital Signs Blood pressure diastolic 72 mm Hg 01/04/2025 Height 5 ft 5 in in 01/04/2025 Blood pressure systolic 120 mm Hg 01/04/2025 Weight 130 lbs 01/04/2025 BMI 21.63 kg/m2 01/04/2025 Procedures Procedure Date Ordered Date Performed Result Body Sit e 75128-YJJCJRB NAIL, 6 OR MORE 06/29/2024 N/A 00189-MRRLFMQ NAIL, 6 OR MORE 2024 N/A 22418-IIZWTWG NAIL, 6 OR MORE 01/04/2025 N/A Encounters Encounter Location Date Provider Diagnosis [address] [address] 06/29/2024 Tata Black Other hammer toe(s) (acquired), [...] and Hallux valgus of left foot M20.[address] [address] 2024 Tata Black Onychomycosis B35.1 ; Other hammer toe(s) (acquired), left foot M20.42 ; Pain in right toe(s) M79.674 ; Pain in left toe(s) M79.675 and Arthritis of joint of lesser toe, left M19.[address] [address] 01/04/2025 Tata Black Onychomycosis B35.1 ; Other hammer toe(s) (acquired), left foot M20.42 ; Pain in right toe(s) M79.674 ; Pain in left toe(s) M79.675 and Arthritis of joint of lesser toe, left M19.[address] [place] [address] 06/14/2024 [facility] [address] [place] [address] 01/04/2025 [facility] [address] [place] [address] 04/05/2025 Tata Coates Assessments Encounter Date Diagnosis [...] X ray : Foot, right 3V 06/29/2024 03805-WBSGSOQ NAIL, 6 OR MORE 2024 20281-GCVKLFQ NAIL, 6 OR MORE 01/04/2025 82261-QLFNUTR NAIL, 6 OR MORE 06/29/2024 01558- Nail Unit Biopsy 04/28/2017 Insurance Providers Payer Name Payer Address Payer Phone Subscriber Number Group Number Insured Name Patient Relationship to Insured Coverage Start Date Coverage End Date [facility] [address] [place] [address] [phone] [id number] Aysha Madison Self - patient is the insured Medical (General) History Medical History History ICD Code mumps measles chicken pox asthma Broken bones CAD (Cholesterol) Cataracts covid-19 Gout Sciatica Meningioma Glaucoma Surgical History Surgery Date(Month/Year) tonsillectomy and adenoidectomy cataract surgery 2010
--- OUTSIDE RECORDS SUMMARY | 2025-04-20 08:57 | XMS_ITS | Encounter Summary ---
Author Organization [facility] Address [address] [place] [address] Care Team Providers Care National Insurance Officer Name Role Phone Colten Rogers Primary Care Provider [phone] Encounter Details Date Type Department Care Team (Latest Contact Info) Description 04/11/2025 Lab Requisition [facility] - Main Lab [address] [facility] [place] [phone] Alexx Grimes MD [address] [place] [address] Hyperlipidemia, unspecified; Muscle weakness (generalized); Unspecified asthma, uncomplicated Social History Tobacco Use Types Packs/Day Years [...] Associated Diagnosis Comments COMPLETE BLOOD COUNT Routine 04/12/2025 6:39 AM EST Hyperlipidemia, unspecified Muscle weakness (generalized) Unspecified asthma, uncomplicated BASIC METABOLIC PANEL Routine 04/12/2025 6:39 AM EST Hyperlipidemia, unspecified Muscle weakness (generalized) Unspecified asthma, uncomplicated documented in this encounter Results * (ABNORMAL) Complete blood count (04/12/2025 6:39 AM EST) [facility] WBC 8.7 4.8 - 10.8 K/mcL LAB HEMETOLOGY METHOD 04/12/2025 10:39 AM [facility] RBC 3.60(L) 3.80 - 4.80 M/mcL LAB HEMETOLOGY METHOD 04/12/2025 10:39 AM [facility] Hemoglobin 11.4(L) 11.5 - 16.0 g/dL LAB HEMETOLOGY METHOD 04/12/2025 10:39 AM [facility] Hematocrit 33.2(L) 35.0 - 47.0 % LAB HEMETOLOGY METHOD 04/12/2025 10:39 AM [facility] MCV 92.2 79.0 - 98.0 FL LAB HEMETOLOGY METHOD 04/12/2025 10:39 AM [facility] MCH 31.7 27.0 - 32.0 pcg LAB HEMETOLOGY METHOD 04/12/2025 10:39 AM [facility] MCHC 34.3 32.0 - 37.0 g/dL LAB HEMETOLOGY METHOD 04/12/2025 10:39 AM [facility] RDW 13.3 11.0 - 15.0 % LAB HEMETOLOGY METHOD 04/12/2025 10:39 AM [facility] Platelets 409(H) 130 - 400 K/mcL LAB HEMETOLOGY METHOD 04/12/2025 10:39 AM [facility] MPV 9.2 7.0 - 11.0 FL LAB HEMETOLOGY METHOD 04/12/2025 10:39 AM [facility] NRBC 0.0 <1.0 % LAB HEMETOLOGY METHOD 04/12/2025 10:39 AM [facility] NRBC Absolute 0.00 <0.10 K/mcL LAB HEMETOLOGY METHOD 04/12/2025 10:39 AM [facility] Blood Venous blood specimen / Unknown Venipuncture / Unknown 04/12/2025 6:39 AM EST 04/12/2025 10:20 AM EST Alexx Grimes MD LAB BLOOD ORDERABLES Final Resu lt [facility] [address] [place] [address], [place] [phone] * Basic metabolic panel (04/12/2025 6:39 AM EST) Sodium 137 133 - 145 mmol/L LAB CHEMISTRY METHOD 04/12/2025 11:03 AM [facility] Potassium 4.2 3.5 - 5.5 mmol/L LAB CHEMISTRY METHOD 04/12/2025 11:03 AM [facility] Chloride 104 96 - 110 mmol/L LAB CHEMISTRY METHOD 04/12/2025 11:03 AM [facility] CO2 27 21 - 32 mmol/L LAB CHEMISTRY METHOD 04/12/2025 11:03 AM [facility] Anion Gap 6 3 - 11 LAB CHEMISTRY METHOD 04/12/2025 11:03 AM [facility] Glucose 82 70 - 100 mg/dL LAB CHEMISTRY METHOD 04/12/2025 11:03 AM [facility] BUN 12 5 - 25 mg/dL LAB CHEMISTRY METHOD 04/12/2025 11:03 AM [facility] Creatinine 0.51 0.50 - 1.10 mg/dL LAB CHEMISTRY METHOD 04/12/2025 11:03 AM [facility] eGFR 94 >=60 mL/min/1. 73m2 LAB CHEMISTRY METHOD 04/12/2025 11:03 AM [facility] Comment:Calculation based on the Chronic Kidney Disease Epidemiology Collaboration (CKD-EPI) equation refit without adjustment for race. BUN/Creatinine Ratio 23.5 LAB CHEMISTRY METHOD 04/12/2025 11:03 AM EST [facility] Calcium 8.6 8.5 - 10.5 mg/dL LAB CHEMISTRY METHOD 04/12/2025 11:03 AM EST [facility] Blood Venous blood specimen / Unknown Venipuncture / Unknown 04/12/2025 6:39 AM EST 04/12/2025 10:19 AM EST us Alexx Grimes MD LAB BLOOD ORDERABLES Final Resu lt [facility] [address] [place] [address], documented in this encounter Visit Diagnoses Diagnosis Hyperlipidemia, unspecified Muscle weakness (generalized) Unspecified asthma, uncomplicated documented in this encounter Care Teams National Insurance Officer Relationship Specialty Start Date End Date Colten Rogers PA [address] [place] [phone] PCP - General 04/06/25 documented as of this encounter
== END 2025-04-19 08:53 | disposition home or self-care (01) ==
LOC: HO.HOSX 08:52
PROVIDERS: Visit Provider Physician Assistant
DX: Z47.89 Encounter for other orthopedic aftercare (principal); S72.002D Fracture of unspecified part of neck of left femur, subsequent encounter for closed fracture with routine healing; Z96.642 Presence of left artificial hip joint; X58.XXXD Exposure to other specified factors, subsequent encounter
CPT/HCPCS: 72170; 99212

== ENCOUNTER 2025-04-19 10:04 | Outpatient (AMB) | payer MEDICARE, SELFPAY ==
--- OUTSIDE RECORDS SUMMARY | 2024-08-08 05:30 | XMS_ITS ---
[facility] Organization [facility] Address [address] [place] [address] Care Team Providers Care Two Way Radio Technician Name Role Phone Jayme FOWLER, Janelle Primary Care Provider Unavail able Black, Tata Unavailable [phone] Chelly Perry Unavailable [phone] Allergies Allergen (clinical drug ingredient) Drug/Non Drug Allergy documented on EMR Reaction Allergy Type Onset Date Status Biaxin Unknown Drug Allergy Active erythromycin erythromycin nausea Drug Allergy A ctive Z Pac Unknown Drug Allergy Active REASON FOR VISIT off cx list Medications Medication SIG (Take, Route, Frequency, Duration) Notes Start Date End Date Status Calcium Citrate + 315-200 MG-UNIT 1 tablet with meals Orally Twice a day; Duration: 30 day(s) Unknown Aspirin Adult Low Strength 81 MG 1 tablet Orally Once a day; Duration: 30 day(s) Unknown Wixela Inhub Active Atorvastatin Calcium Active Colcrys 0.6 MG 1 tablet Orally Once a day; Duration: 10 days Unknown Ibandronate Sodium 150 MG Orally Unknown Fluzone Unknown Albuterol prn Active Flovent HFA 110 MCG/ACT 1 puff Inhalatio n Twice a day Unknown Colcrys 0.6 MG 1 tablet Orally Once a day; Duration: 10 days 01/23/2015 Unknown Proventil HFA 108 (90 Base) MCG/ACT 2 puffs as needed Inhalation every 4 hrs Unknown Multivitamins as directed Orally Unknown Vitamin D3 400 UNIT as directed Orally Unknown Keflex 500 MG 1 capsule Orally Fou r times a day; Duration: 10 day(s) 01/23/2015 Unknown Advair Diskus Unknow n Social History Tobacco use other than smoking: Question Answer Notes Are you an other tobacco user? No Encounters Encounter Location Date Provider Diagnosis [facility] [address] [place] [address] 08/08/2024 Chelly Perry Plan Of Treatment No Information Progress Notes * Aysha MADISON CDOB: [birth year] (79 yo F)Acc No.[id number]:08/08/2024 Progress Notes Patient: Aysha SINGH Provider: Jackie Perry DPM :1945 A ge:78 Y S ex:Female Date:08/08/2024 Address:[address] [place] [address], [place], [place] Pcp:Janelle Delacruz NP Subjective: * Chief Complaints: * 1 . Off cx list. * ROS: G eneral/Constitutional: Nausea d enies. V omiting d enies. H karson Thirst d enies. L oss appetite d enies. C hills d enies. F atigue d enies.?Fever d enies. N ight Sweats d enies. U nexplained weight loss d enies. U nexplained weight gain d enies. H EENTM: Dentures d enies. D izziness d enies. G lasses/contacts a dmits. R etinopathy d enies. B lurred/double vision d enies. T MJ?denies. D ischarge/drainage d enies. I mplants d enies. S ore throat d enies. D ental implants d enies. H beatriz of hearing d enies. D ifficulty chewing/swallowing/speaking d enies. N ose bleeds d enies. S ore mouth d enies. ? R espiratory: On Oxygen d enies. P neumonia/pleurisy d enies.?Bronchitis d enies. E mphysema d enies. C oughing a dmits. C ough blood?denies. S hortness of breath d enies. W heezing d enies. C ardiovascular: Pacemaker d enies. 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 W PW d enies. C HF d enies. H eart attack d enies. S eptal defect d enies. R apid beat d enies. C hest pain d enies. A trial Fib. d enies. M urmur/Palpitations d enies. G astrointestinal: Hemorrhoids d enies. S tomach/Abdominal pain d enies. D ark blood stool d enies. I rritable bowel d enies. C onstipation d enies. D iarrhea d enies. H ematology: Swelling d enies. C lots d enies. V aricose Veins d enies. B ruising d enies. B leeding problem d enies. G enitourinary: Blood urine d enies. F requent/Painfu/urination/bladder control d enies. K idney stones d enies. I nfection (UTI) d enies. N ephropathy d enies. s ex trans dis (STD) d enies. P rostate d enies. M usculoskeletal: Hammertoes d enies. B unions a dmits. B ack Pain d enies. M uscle Cramps/ Resting d enies. M uscle cramps / walking d enies.?Generalized aches and pains d enies. W eakness d enies. I nteg.: Morillo d enies. S cars d enies. C orns/calluses?admits. I ngrown nails d enies. P ainful nails d enies. O pen Sores d enies. R ashes d enies. N eurologic: Difficulty sleeping d enies. B rain disorder d enies. N umbness d enies. B alance trouble d enies. C onfusion d enies. F ainting/blackouts d enies. T ingling d enies. T remors d enies. * Medical History: M umps, Measles, Chicken pox, Asthma, Broken bones, CAD (Cholesterol), Cataracts, Covid-19, Gout, Sciatica, Meningioma. * Surgical History: t onsillectomy and adenoidectomy , cataract surgery 2010. * Family History: M other: , high blood pressure, poor circulation, stroke, diagnosed with Unspecified heart disease. F ather: , cancer, arthritis, heart attack, diagnosed with Other malignant neoplasm of unspecified site, Unspecified heart disease. M ras Grand Mother: heart attack, foot problems. M ras Grand Father: stroke. M ras aunt: arthritis, foot problems.?Siblings: defects. * Social History: T obacco Use: T obacco Use/Smoking A re you a:: nonsmoker , Additional Findings: Tobacco Non-User: Current non- smoker. Tobacco use other than smoking A re you an other tobacco user? N o D rugs/Alcohol: D rugs H ave you used drugs other than those for medical reasons in the past 12 months? No. Alcohol Screen D id you have a drink containing alcohol in the past year?: Yes, Points: 0, Interpretation: Negative. M iscellaneous: C affeine: yes, 1-2 cups per day. Children: no. Exercise: yes, walking. Marital status: . * Medications: T aking Wixela Inhub , Taking Atorvastatin Calcium , Taking Albuterol prn , Unknown Proventil HFA 108 (90 Base) MCG/ACT Aerosol Solution 2 puffs as needed Inhalation every 4 hrs , Unknown Multivitamins Capsule as directed Orally , Unknown Vitamin D3 400 UNIT Tablet as directed Orally , Unknown Keflex 500 MG Capsule 1 capsule Orally Four times a day , Unknown Advair Diskus , Unknown Ibandronate Sodium 150 MG Tablet Orally , Unknown Fluzone , Unknown Flovent HFA 110 MCG/ACT Aerosol 1 puff Inhalation Twice a day , Unknown Colcrys 0.6 MG Tablet 1 tablet Orally Once a day , Unknown Colcrys 0.6 MG Tablet 1 tablet Orally Once a day , Unknown Calcium Citrate + 315-200 MG-UNIT Tablet 1 tablet with meals Orally Twice a day , Unknown Aspirin Adult Low Strength 81 MG Tablet Delayed Release 1 tablet Orally Once a day * Allergies: e rythromycin: nausea, Biaxin, Z Pac. Objective: * Vitals: Assessment: Plan: * Treatment: * Images: * The named appointment provid er may or may not be the originator of this progress note, and it is not deemed complete until electronically signed by the appointment provider. Sign off status: Pending * Provider: Jackie Perry DPM Date: 0 08/08/2024 Generated for Sarah emery/Olaf/[place] on: 1 06/19/2024 02:46 PM EST
--- OUTSIDE RECORDS SUMMARY | 2025-04-09 06:30 | XMS_ITS ---
Author Organization [facility] Address [address] [place] [address] Care Team Providers Care Drapery Hemmer Automatic Name Role Phone Jayme FOWLER, Janelle Primary Care Provider Unavail Tata Alaniz Unavailable [phone] Encounters Encounter Location Date Provider Diagnosis [facility] [address] [place] [address] 04/09/2025 Tata Coates Plan Of Treatment No Information Progress Notes * Aysha MADISON CDOB: [birth year] (79 yo F)Acc No.[id number]:04/09/2025 Progress Note Patient: Aysha SINGH Provider: César Coates DPM :1945 A ge:79 Y S ex:Female Date:04/09/2025 Address:[address] [place] [address] Pcp:Janelle Delacruz NP Subjective: * Chief Complaints: [...] Coates DPM Date: 06/09/2024 Generated for Nicolasi rupert/Fadaniel/eTransmitting on: 06/19/2024 02:45 PM EST
--- NOTE | 2025-04-19 10:19 | MHC.OFFVIS ---
Vital Signs 04/19/25 10:54 Height 5 ft 5 in Weight 142 lb BMI 23.6 Intake Visit Reasons: PO- left hip lillian 04/04/25 with NE Intake Note: Aysha is a 79 year old female who presents today for a post operative appointment status post left hip hemiarthroplasty done on 04/04/25 by . Patient reports she is doing well. She has been taking Tylenol PRN with relief. Patient states she will be leaving [facility] this afternoon. Allergies erythromycin base (Erythromycin Base) Allergy (Unknown, Verified 04/19/25 10:58) Nausea HPI HPI PO- left hip lillian 04/04/25 with NE: Details: Ms. Madison is an 79-year-old female who presents to the office today status post left hip hemiarthroplasty performed on 04/04/[address] Hamilton. Patient reports that she has been residing at [facility] recovering after surgery. She is set to discharge home later this afternoon. She has been doing very well and progressing with physical therapy. She reports minimal pain. [facility] Medical History (Updated 04/15/25 @ 00:00 by Melani Cuellar) Asthma Surgical History S/P ear surgery H/O dilation and curettage Hx of tonsillectomy Social History Household Members: Family Housing: House Do you presently have visiting nurse or other home services: No Patient Tobacco Use Status: Never used Tobacco service: No Review of Systems Const All systems reviewed & are unremarkable except as noted in HPI and below Physical Exam Vital Signs: BMI result Body Mass Index 23.6 Const General: cooperative, healthy appearing and no acute distress Resp Effort & Inspection: normal respiratory effort and able to speak in complete sentences Extrem Other: Left hip incision site is clean dry and intact. Nelson intact. No surrounding erythema or drainage. No signs of infection. Able to perform a straight leg raise. Good internal external rotation. Able to dorsiflex and plantar flex. NVI. Psych Appearance: grossly normal Mental Status: mental status grossly normal Attitude: cooperative Assessment & Plan Assessment & Plan (1) Closed fracture of neck of left femur: Code(s): S72.002A - Fracture of unspecified part of neck of left femur, initial encounter for closed fracture Category: Medical Qualifiers: Encounter type: initial encounter Qualified Code(s): S72.002A - Fracture of unspecified part of neck of left femur, initial encounter for closed fracture Plan Ms. Madison is an 79-year-old female who presents to the office today status post left hip hemiarthroplasty performed on 04/04/[address] Hamilton. Patient reports that she has been residing at [facility] after surgery. She is set to discharge home later this afternoon. She has been doing very well and progressing with physical therapy. She reports minimal pain. While the office today pat were removed and Steri-Strips were applied. Educated the patient to continue anticoagulation therapy for a total of 6 weeks postoperatively. No driving for 6 weeks. Physical therapy to continue working on glute core quad strengthening as well as gait training. She may wean from the walker when she can demonstrate safe ambulation. This will be done with physical therapy. She will follow up with orthopedics in 4 weeks, sooner if needed. X-rays of the left hip which were obtained while in the office today and were reviewed by me, Francine Carroll PA-C, revealed intact left hip hemiarthroplasty with satisfactory alignment. Orders: Orders XR pelvis 1-2V Today M25.559 - Pain in unspecified hip Coding Level of Care Code Global (80270) Diagnoses Closed fracture of neck of left femur, initial encounter S72.002A Encounter type: initial encounter
[2025-04-19 10:54] VITALS: BMI 23.6
--- OUTSIDE RECORDS SUMMARY | 2025-04-19 14:46 | XMS_ITS | Patient Health Record ---
Author Organization [facility] Address [address] [place] [address] Care Team Providers Care Cherry Pitter Name Role Phone Nikita Hall Jr [phone] Reason For Referral No Information Plan Of Treatment No Information
--- OUTSIDE RECORDS SUMMARY | 2025-04-19 14:46 | XMS_ITS | Patient Health Record ---
Author Organization [facility] Address [address] [place] [address] Care Team Providers Care Internet Sales Manager Name Role Phone Jayme FOWLER, Janelle Primary Care Provider Unavail able Black, Tata Unavailable [phone] PericChelly najera Unavailable [phone] Allergies Allergen (clinical drug ingredient) Drug/Non Drug [...] Problem Acquired hammer toe of right foot (3505213291513127) Other hammer toe(s) (acquired), right foot (M20.41) Active confirmed Problem Acquired hammer toe of left foot (7670151993342120) Other hammer toe(s) (acquired), left foot (M20.42) Active confirmed Problem Hallux valgus of right foot (6471999820) Hallux valgus of right foot (M20.11) Active confirmed Problem Hallux valgus of left foot (9027967641) Hallux valgus of left foot (M20.12) Active confirmed Problem Localized, primary osteoarthritis of the ankle and/or foot (377148571) Arthritis of joint of lesser toe, left (M19.072) Active confirmed Problem Localized, primary osteoarthritis of the ankle and/or foot (525936009) Arthritis of joint of lesser toe, right (M19.071) Active confirmed Vital Signs Blood pressure diastolic 72 mm Hg 01/04/2025 Height 5 ft 5 in in 01/04/2025 Blood pressure systolic 120 mm Hg 01/04/2025 Weight 130 lbs 01/04/2025 BMI 21.63 kg/m2 01/04/2025 Procedures Procedure Date Ordered Date Performed Result Body Sit e 10906-UUJLCLJ NAIL, 6 OR MORE 06/29/2024 N/A 54293-KMWNAOA NAIL, 6 OR MORE 2024 N/A 78062-TAOBXZW NAIL, 6 OR MORE 01/04/2025 N/A Encounters Encounter Location Date Provider Diagnosis [address] [address] 06/29/2024 Tata Black Other hammer toe(s) (acquired), [...] and Hallux valgus of left foot M20.[address] [address] 2024 Tata Black Onychomycosis B35.1 ; Other hammer toe(s) (acquired), left foot M20.42 ; Pain in right toe(s) M79.674 ; Pain in left toe(s) M79.675 and Arthritis of joint of lesser toe, left M19.[address] [address] 01/04/2025 Tata Black Onychomycosis B35.1 ; Other hammer toe(s) (acquired), left foot M20.42 ; Pain in right toe(s) M79.674 ; Pain in left toe(s) M79.675 and Arthritis of joint of lesser toe, left M19.[address] [place] [address] 06/14/2024 [facility] [address] [place] [address] 01/04/2025 [facility] [address] [place] [address] 04/05/2025 Tata Coates Assessments Encounter Date Diagnosis (ICD [...] X ray : Foot, right 3V 06/29/2024 39899-XJLSJAE NAIL, 6 OR MORE 2024 35647-MHQYSSN NAIL, 6 OR MORE 01/04/2025 16809-BPQGGAE NAIL, 6 OR MORE 06/29/2024 87528- Nail Unit Biopsy 04/28/2017 Insurance Providers Payer Name Payer Address Payer Phone Subscriber Number Group Number Insured Name Patient Relationship to Insured Coverage Start Date Coverage End Date [facility] [employer] [address] [place] [address] [phone] [id number] Aysha Madison Self - patient is the insured Medical (General) History Medical History History ICD Code mumps measles chicken pox asthma Broken bones CAD (Cholesterol) Cataracts covid-19 Gout Sciatica Meningioma Glaucoma Surgical History Surgery Date(Month/Year) tonsillectomy and adenoidectomy cataract surgery 2010
== END 2025-04-19 11:25 | disposition home or self-care (01) ==
LOC: HO.HOS 10:05
PROVIDERS: PCP Nurse Practitioner Family; Visit Provider Physician Assistant
DX: S72.002A Fracture of unspecified part of neck of left femur, initial encounter for closed fracture (principal)
CPT/HCPCS: 99024

== ENCOUNTER → 2025-04-19 10:33 | Outpatient (BNV) | payer MEDICARE, SELFPAY | PROVIDERS: Visit Provider Radiology Diagnostic Radiology | DX: M25.552 Pain in left hip (principal); Z96.642 Presence of left artificial hip joint | CPT/HCPCS: 72170 ==

== ENCOUNTER 2025-05-17 08:31 | Outpatient (REF) | payer MEDICARE, SELFPAY ==
--- OUTSIDE RECORDS SUMMARY | 2024-08-08 05:30 | XMS_ITS ---
Author Organization [facility] Address [address] [place] [address] Care Team Providers Care Oil Dipper Name Role Phone Jayme FOWLER, Janelle Primary Care Provider Unavail able Black, Tata Unavailable [phone] Chelly Perry Unavailable [phone] Allergies Allergen (clinical drug ingredient) Drug/Non Drug [...] No Encounters Encounter Location Date Provider Diagnosis [facility] [address] [place] [address] 08/08/2024 Chelly Perry Plan Of Treatment Next Appt Details Provider Name:Tata Coates , 08/23/2025 10:00:00 AM, [address] [place], [address], Progress Notes * Aysha MADISON CDOB: [birth year] (79 yo F)Acc No.[id number]:08/08/2024 Progress Notes Patient: Aysha SINGH Provider: Varsha Perry DPM :1945 A ge:78 Y S ex:Female Date:08/08/2024 Address:[address] [place], [place] [id number] Pcp:Janelle Delacruz NP Subjective: * Chief Complaints: [...] enies. C ardiovascular: Pacemaker d enies. 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 W PW d enies. C [...] 08/08/2024 Generated for Sarah Cruz/[place] on: 1 07/19/2024 08:41 AM EST
--- OUTSIDE RECORDS SUMMARY | 2025-04-09 06:30 | XMS_ITS ---
Author Organization [facility] Address [address] [place] [address] Care Team Providers Care Wrapping Machine Tender Name Role Phone Jayme FOWLER, Janelle Primary Care Provider Unavail able JaxonWarrenTata Unavailable [phone] Encounters Encounter Location Date Provider Diagnosis [address] [address] 04/09/2025 Tata Coates Plan Of Treatment Next Appt Details Provider Name:Tata Coates , 08/23/2025 10:00:00 AM, [address] [place] [address], [phone], Progress Notes * Aysha MADISON CDOB: [birth year] (79 yo F)Acc No.[id number]:04/09/2025 Progress Note Patient: Pita Aysha STEELE Provider: César Coates DPM :1945 A ge:79 Y S ex:Female Date:04/09/2025 Address:[address] [place] [address] Pcp:Janelle Delacruz NP Subjective: * Chief Complaints: * * Medical History: Objective: * Vitals: Assessment: Plan: * Treatment: * Images: * The named appointment provid er may or may not be the originator of this progress note, and it is not deemed complete until electronically signed by the appointment provider. Sign off status: Pending * Provider: César Coates DPM Date: 1 06/09/2024 Generated for Sarah emery/Olaf/Kenyetta on: 07/19/2024 08:40 AM EST
--- NOTE | ~2025-05-17 | XR_ITS ---
EXAMINATION: XR PELVIS CLINICAL INFORMATION: M25.559 - Pain in unspecified hip COMPARISON: April 19, 2025 TECHNIQUE: AP view of the pelvis. FINDINGS: Metallic prosthesis with a femoral and acetabular component in the left hip without acute cortical disruption. Mild loosening along the greater trochanter region. Degenerative changes in the sacroiliac joints and symphysis pubis. Mild degenerative changes in the right coxofemoral joint. Sclerosis and the iliac crest, bilaterally. Spondylosis at L4-5 and L5-S1. XR/XR pelvis 1-2V IMPRESSION: Total left hip arthroplasty prosthesis with questionable loosening within the greater trochanter. Electronically signed by: Eddie Veloz MD 05/17/2025 01:05 PM [facility]
--- OUTSIDE RECORDS SUMMARY | 2025-05-18 08:41 | XMS_ITS | Encounter Summary ---
Author Organization [facility] Address [address] [place] [address] Care Team Providers Care Reel Assembler Name Role Phone Colten Rogers Primary Care Provider +1 [phone] Encounter Details Date Type Department Care Team (Late st Contact Info) Description 04/08/2025 Lab Requisition [facility] - Main Lab [address] [facility] [phone] Alexx Grimes MD [address] [place] [phone] Displaced fracture of base of neck of [...] mmol/L LAB CHEMISTRY METHOD 04/08/2025 10:34 AM [facility] Potassium 3.9 3.5 - 5.5 mmol/L LAB CHEMISTRY METHOD 04/08/2025 10:34 AM [facility] Chloride 103 96 - 110 mmol/L LAB CHEMISTRY METHOD 04/08/2025 10:34 AM [facility] CO2 28 21 - 32 mmol/L LAB CHEMISTRY METHOD 04/08/2025 10:34 AM [facility] Anion Gap 5 3 - 11 LAB CHEMISTRY METHOD 04/08/2025 10:34 AM [facility] Glucose 78 70 - 100 mg/dL LAB CHEMISTRY METHOD 04/08/2025 10:34 AM [facility] BUN 9 5 - 25 mg/dL LAB CHEMISTRY METHOD 04/08/2025 10:34 AM [facility] Creatinine 0.43(L) 0.50 - 1.10 mg/dL LAB CHEMISTRY METHOD 04/08/2025 10:34 AM [facility] eGFR 98 >=60 mL/min/1. 73m2 LAB CHEMISTRY METHOD 04/08/2025 10:34 AM [facility] Comment:Calculation based on the Chronic Kidney Disease Epidemiology Collaboration (CKD-EPI) equation refit without adjustment for race. BUN/Creatinine Ratio 20.9 LAB CHEMISTRY METHOD 04/08/2025 10:34 AM [facility] Calcium 7.7(L) 8.5 - 10.5 mg/dL LAB CHEMISTRY METHOD 04/08/2025 10:34 AM [facility] AST (SGOT) 39 10 - 42 unit/L LAB CHEMISTRY METHOD 04/08/2025 10:34 AM [facility] ALT (SGPT) 35 10 - 60 unit/L LAB CHEMISTRY METHOD 04/08/2025 10:34 AM [facility] Alkaline Phosphatase 73 42 - 121 unit/L LAB CHEMISTRY METHOD 04/08/2025 10:34 AM [facility] Total Protein 5.1(L) 6.0 - 8.0 g/dL LAB CHEMISTRY METHOD 04/08/2025 10:34 AM [facility] Albumin 2.5(L) 3.2 - 5.0 g/dL LAB CHEMISTRY METHOD 04/08/2025 10:34 AM [facility] Total Bilirubin 0.7 0.0 - 1.4 mg/dL LAB CHEMISTRY METHOD 04/08/2025 10:34 AM [facility] Blood Venous blood specimen / Unknown Venipuncture / Unknown 04/08/2025 6:17 AM EST 04/08/2025 9:03 AM EST us Alexx Grimes MD LAB BLOOD ORDERABLES Final Resu lt [facility] [address] [place] [address], * (ABNORMAL) Complete blood count (04/08/2025 6:17 AM EST) WBC 7.8 4.8 - 10.8 K/mcL LAB HEMETOLOGY METHOD 04/08/2025 9:55 AM [facility] RBC 3.20(L) 3.80 - 4.80 M/mcL LAB HEMETOLOGY METHOD 04/08/2025 9:55 AM [facility] Hemoglobin 10.1(L) 11.5 - 16.0 g/dL LAB HEMETOLOGY METHOD 04/08/2025 9:55 AM [facility] Hematocrit 29.5(L) 35.0 - 47.0 % LAB HEMETOLOGY METHOD 04/08/2025 9:55 AM [facility] MCV 92.2 79.0 - 98.0 FL LAB HEMETOLOGY METHOD 04/08/2025 9:55 AM [facility] MCH 31.6 27.0 - 32.0 pcg LAB HEMETOLOGY METHOD 04/08/2025 9:55 AM [facility] MCHC 34.2 32.0 - 37.0 g/dL LAB HEMETOLOGY METHOD 04/08/2025 9:55 AM [facility] RDW 12.8 11.0 - 15.0 % LAB HEMETOLOGY METHOD 04/08/2025 9:55 AM [facility] Platelets 252 130 - 400 K/mcL LAB HEMETOLOGY METHOD 04/08/2025 9:55 AM [facility] MPV 10.3 7.0 - 11.0 FL LAB HEMETOLOGY METHOD 04/08/2025 9:55 AM [facility] NRBC 0.0 <1.0 % LAB HEMETOLOGY METHOD 04/08/2025 9:55 AM [facility] NRBC Absolute 0.00 <0.10 K/mcL LAB HEMETOLOGY METHOD 04/08/2025 9:55 AM [facility] Blood Venous blood specimen / Unknown Venipuncture / Unknown 04/08/2025 6:17 AM EST 04/08/2025 9:03 AM EST us Alexx Grimes MD LAB BLOOD ORDERABLES Final Resu lt [facility] [address] [place] [address], [place] [phone] documented in this encounter Visit Diagnoses Diagnosis Displaced fracture of base of neck of left femur, subsequent encounter for closed fracture with routine healing Aftercare following joint replacement surgery Presence of left artificial hip joint documented in this encounter Care Teams Reel Assembler Relationship Specialty Start Date End Date Colten Rogers PA [address] [place] [address] PCP - General 04/06/25 documented as of this encounter
--- OUTSIDE RECORDS SUMMARY | 2025-05-18 08:41 | XMS_ITS | Patient Health Record ---
Author Organization [facility] Address [address] [place] [phone] Care Team Providers Care Straw Hat Brim Cutter Operator Name Role Phone Nikita Hall Jr [phone] Reason For Referral No Information Plan Of Treatment No Information
--- OUTSIDE RECORDS SUMMARY | 2025-05-18 08:41 | XMS_ITS | Encounter Summary ---
Author Organization [facility] Address [address] [place] [address] Care Team Providers Care Piper Installer Name Role Phone Colten Rogers Primary Care Provider +1 [phone] Encounter Details Date Type Department Care Team (Latest Contact Info) Description 04/11/2025 Lab Requisition [facility] - Main Lab [address] [facility] [place] [phone] Alexx Grimes MD [address] [place] [address] Hyperlipidemia, unspecified; Muscle weakness (generalized); [...] Complete blood count (04/12/2025 6:39 AM EST) [facility] WBC 8.7 4.8 - 10.8 K/mcL LAB HEMETOLOGY METHOD 04/12/2025 10:39 AM [facility] RBC 3.60(L) 3.80 - 4.80 M/mcL LAB HEMETOLOGY METHOD 04/12/2025 10:39 AM [facility] Hemoglobin 11.4(L) 11.5 - 16.0 g/dL LAB HEMETOLOGY METHOD 04/12/2025 10:39 AM [facility] Hematocrit 33.2(L) 35.0 - 47.0 % LAB HEMETOLOGY METHOD 04/12/2025 10:39 AM [facility] MCV 92.2 79.0 - 98.0 FL LAB HEMETOLOGY METHOD 04/12/2025 10:39 AM [facility] MCH 31.7 27.0 - 32.0 pcg LAB HEMETOLOGY METHOD 04/12/2025 10:39 AM [facility] MCHC 34.3 32.0 - 37.0 g/dL LAB HEMETOLOGY METHOD 04/12/2025 10:39 AM [facility] RDW 13.3 11.0 - 15.0 % LAB HEMETOLOGY METHOD 04/12/2025 10:39 AM [facility] Platelets 409(H) 130 - 400 K/mcL LAB HEMETOLOGY METHOD 04/12/2025 10:39 AM [facility] MPV 9.2 7.0 - 11.0 FL LAB HEMETOLOGY METHOD 04/12/2025 10:39 AM [facility] NRBC 0.0 <1.0 % LAB HEMETOLOGY METHOD 04/12/2025 10:39 AM [facility] NRBC Absolute 0.00 <0.10 K/mcL LAB HEMETOLOGY METHOD 04/12/2025 10:39 AM [facility] Blood Venous blood specimen / Unknown Venipuncture / Unknown 04/12/2025 6:39 AM EST 04/12/2025 10:20 AM EST Alexx Grimes MD LAB BLOOD ORDERABLES Final Resu lt [facility] [address] [place] [address], [place] [phone] * Basic metabolic panel (04/12/2025 6:39 AM EST) Sodium 137 133 - 145 mmol/L LAB CHEMISTRY METHOD 04/12/2025 11:03 AM [facility] Potassium 4.2 3.5 - 5.5 mmol/L LAB CHEMISTRY METHOD 04/12/2025 11:03 AM [facility] Chloride 104 96 - 110 mmol/L LAB CHEMISTRY METHOD 04/12/2025 11:03 AM [facility] CO2 27 21 - 32 mmol/L LAB CHEMISTRY METHOD 04/12/2025 11:03 AM [facility] Anion Gap 6 3 - 11 LAB CHEMISTRY METHOD 04/12/2025 11:03 AM [facility] Glucose 82 70 - 100 mg/dL LAB CHEMISTRY METHOD 04/12/2025 11:03 AM [facility] BUN 12 5 - 25 mg/dL LAB CHEMISTRY METHOD 04/12/2025 11:03 AM [facility] Creatinine 0.51 0.50 - 1.10 mg/dL LAB CHEMISTRY METHOD 04/12/2025 11:03 AM [facility] eGFR 94 >=60 mL/min/1. 73m2 LAB CHEMISTRY METHOD 04/12/2025 11:03 AM [facility] Comment:Calculation based on the Chronic Kidney Disease Epidemiology Collaboration (CKD-EPI) equation refit without adjustment for race. BUN/Creatinine Ratio 23.5 LAB CHEMISTRY METHOD 04/12/2025 11:03 AM EST [facility] Calcium 8.6 8.5 - 10.5 mg/dL LAB CHEMISTRY METHOD 04/12/2025 11:03 AM EST [facility] Blood Venous blood specimen / Unknown Venipuncture / Unknown 04/12/2025 6:39 AM EST 04/12/2025 10:19 AM EST us Alexx Grimes MD LAB BLOOD ORDERABLES Final Resu lt [facility] [address] [place] [address], documented in this encounter Visit Diagnoses Diagnosis Hyperlipidemia, unspecified Muscle weakness (generalized) Unspecified asthma, uncomplicated documented in this encounter Care Teams Piper Installer Relationship Specialty Start Date End Date Colten Rogers PA [address] [place] [phone] PCP - General 04/06/25 documented as of this encounter
--- OUTSIDE RECORDS SUMMARY | 2025-05-18 08:41 | XMS_ITS | Encounter Summary ---
Author Organization [facility] Address [address] [place] [address] Care Team Providers Care Still Cleaner Tube Name Role Phone Colten Rogers Primary Care Provider +1 [phone] Encounter Details Date Type Department Care Team (Late st Contact Info) Description 04/14/2025 Lab Requisition [facility] - Main Lab [address] [facility] [place] [phone] Alexx Grimes MD [address] [place] [phone] Hyperlipidemia, unspecified; Unspecified asthma, uncomplicated; Muscle weakness [...] (04/16/2025 7:45 AM EST) [facility] Sodium 137 133 - 145 mmol/L LAB CHEMISTRY METHOD 04/16/2025 11:46 AM [facility] Potassium 4.3 3.5 - 5.5 mmol/L LAB CHEMISTRY METHOD 04/16/2025 11:46 AM [facility] Chloride 104 96 - 110 mmol/L LAB CHEMISTRY METHOD 04/16/2025 11:46 AM [facility] CO2 29 21 - 32 mmol/L LAB CHEMISTRY METHOD 04/16/2025 11:46 AM [facility] Anion Gap 4 3 - 11 LAB CHEMISTRY METHOD 04/16/2025 11:46 AM [facility] Glucose 77 70 - 100 mg/dL LAB CHEMISTRY METHOD 04/16/2025 11:46 AM [facility] BUN 12 5 - 25 mg/dL LAB CHEMISTRY METHOD 04/16/2025 11:46 AM [facility] Creatinine 0.58 0.50 - 1.10 mg/dL LAB CHEMISTRY METHOD 04/16/2025 11:46 AM [facility] eGFR 91 >=60 mL/min/1. 73m2 LAB CHEMISTRY METHOD 04/16/2025 11:46 AM [facility] Comment:Calculation based on the Chronic Kidney Disease Epidemiology Collaboration (CKD-EPI) equation refit without adjustment for race. BUN/Creatinine Ratio 20.7 LAB CHEMISTRY METHOD 04/16/2025 11:46 AM [facility] Calcium 8.4(L) 8.5 - 10.5 mg/dL LAB CHEMISTRY METHOD 04/16/2025 11:46 AM [facility] AST (SGOT) 29 10 - 42 unit/L LAB CHEMISTRY METHOD 04/16/2025 11:46 AM [facility] ALT (SGPT) 46 10 - 60 unit/L LAB CHEMISTRY METHOD 04/16/2025 11:46 AM [facility] Alkaline Phosphatase 87 42 - 121 unit/L LAB CHEMISTRY METHOD 04/16/2025 11:46 AM [facility] Total Protein 6.2 6.0 - 8.0 g/dL LAB CHEMISTRY METHOD 04/16/2025 11:46 AM [facility] Albumin 3.3 3.2 - 5.0 g/dL LAB CHEMISTRY METHOD 04/16/2025 11:46 AM [facility] Total Bilirubin 0.7 0.0 - 1.4 mg/dL LAB CHEMISTRY METHOD 04/16/2025 11:46 AM [facility] Blood Venous blood specimen / Unknown Venipuncture / Unknown 04/16/2025 7:45 AM EST 04/16/2025 10:38 AM EST us Alexx Grimes MD LAB BLOOD ORDERABLES Final Resu lt [facility] [address] [place] [address], [place] [phone] * (ABNORMAL) Complete blood count (04/16/2025 7:45 AM EST) WBC 7.7 4.8 - 10.8 K/mcL LAB HEMETOLOGY METHOD 04/16/2025 11:08 AM [facility] RBC 3.80 3.80 - 4.80 M/mcL LAB HEMETOLOGY METHOD 04/16/2025 11:08 AM [facility] Hemoglobin 12.1 11.5 - 16.0 g/dL LAB HEMETOLOGY METHOD 04/16/2025 11:08 AM [facility] Hematocrit 36.0 35.0 - 47.0 % LAB HEMETOLOGY METHOD 04/16/2025 11:08 AM [facility] MCV 93.8 79.0 - 98.0 FL LAB HEMETOLOGY METHOD 04/16/2025 11:08 AM [facility] MCH 31.5 27.0 - 32.0 pcg LAB HEMETOLOGY METHOD 04/16/2025 11:08 AM EST [facility] MCHC 33.6 32.0 - 37.0 g/dL LAB HEMETOLOGY METHOD 04/16/2025 11:08 AM [facility] RDW 13.8 11.0 - 15.0 % LAB HEMETOLOGY METHOD 04/16/2025 11:08 AM [facility] Platelets 451(H) 130 - 400 K/mcL LAB HEMETOLOGY METHOD 04/16/2025 11:08 AM [facility] MPV 9.3 7.0 - 11.0 FL LAB HEMETOLOGY METHOD 04/16/2025 11:08 AM [facility] NRBC 0.0 <1.0 % LAB HEMETOLOGY METHOD 04/16/2025 11:08 AM [facility] NRBC Absolute 0.00 <0.10 K/mcL LAB HEMETOLOGY METHOD 04/16/2025 11:08 AM [facility] Blood Venous blood specimen / Unknown Venipuncture / Unknown 04/16/2025 7:45 AM EST 04/16/2025 10:38 AM EST us Alexx Grimes MD LAB BLOOD ORDERABLES Final Resu lt [facility] [address] [place] [address], documented in this encounter Visit Diagnoses Diagnosis Hyperlipidemia, unspecified Unspecified asthma, uncomplicated Muscle weakness (generalized) documented in this encounter Care Teams Still Cleaner Tube Relationship Specialty Start Date End Date Colten Rogers PA [address] [place] [address] PCP - General 04/06/25 documented as of this encounter
--- OUTSIDE RECORDS SUMMARY | 2025-05-18 08:41 | XMS_ITS | Clinical Summary ---
Author Organization [facility] Address [address] [place] [address] Phone Care Team Providers Care Dock Operations Supervisor Name Role Phone Colten Rogers Primary Care Provider +1 -[phone] Encounters Date Type Department Care Team Description 04/20/2025 Lab Requisition [facility] Lab [address] [place] [phone] Alexx Grimes MD Hyperlipidemia, unspecified; Unspecified asthma, uncomplicated; Muscle weakness (generalized) 04/14/2025 Lab Requisition [facility] Lab [address] [place] [phone] Alexx Grimes MD Hyperlipidemia, unspecified; Unspecified asthma, uncomplicated; Muscle weakness (generalized) 04/11/2025 Lab Requisition [facility] Lab [address] [place] [phone] Alexx Grimes MD Hyperlipidemia, unspecified; Muscle weakness (generalized); Unspecified asthma, uncomplicated 04/08/2025 Lab Requisition [facility] Lab [address] [place] [phone] Alexx Grimes MD Displaced fracture of base [...] K/mcL LAB HEMETOLOGY METHOD 04/16/2025 11:08 AM [facility] RBC 3.80 3.80 - 4.80 M/mcL LAB HEMETOLOGY METHOD 04/16/2025 11:08 AM [facility] Hemoglobin 12.1 11.5 - 16.0 g/dL LAB HEMETOLOGY METHOD 04/16/2025 11:08 AM [facility] Hematocrit 36.0 35.0 - 47.0 % LAB HEMETOLOGY METHOD 04/16/2025 11:08 AM [facility] MCV 93.8 79.0 - 98.0 FL LAB HEMETOLOGY METHOD 04/16/2025 11:08 AM [facility] MCH 31.5 27.0 - 32.0 pcg LAB HEMETOLOGY METHOD 04/16/2025 11:[address] [facility] MCHC 33.6 32.0 - 37.0 g/dL LAB HEMETOLOGY METHOD 04/16/2025 11:08 AM [facility] RDW 13.8 11.0 - 15.0 % LAB HEMETOLOGY METHOD 04/16/2025 11:08 AM [facility] Platelets 451(H) 130 - 400 K/mcL LAB HEMETOLOGY METHOD 04/16/2025 11:08 AM [facility] MPV 9.3 7.0 - 11.0 FL LAB HEMETOLOGY METHOD 04/16/2025 11:08 AM [facility] NRBC 0.0 <1.0 % LAB HEMETOLOGY METHOD 04/16/2025 11:08 AM [facility] NRBC Absolute 0.00 <0.10 K/mcL LAB HEMETOLOGY METHOD 04/16/2025 11:08 AM [facility] Blood Venous blood specimen / Unknown Venipuncture / Unknown 04/16/2025 7:45 AM EST 04/16/2025 10:38 AM EST us Alexx Grimes MD LAB BLOOD ORDERABLES Final Resu lt [facility] [address] [place] [address], * (ABNORMAL) Comprehensive metabolic panel (04/16/2025 7:45 AM EST) Only the most recent of2 resultswithin the time period is included. Sodium 137 133 - 145 mmol/L LAB CHEMISTRY METHOD 04/16/2025 11:46 AM [facility] Potassium 4.3 3.5 - 5.5 mmol/L LAB CHEMISTRY METHOD 04/16/2025 11:46 AM [facility] Chloride 104 96 - 110 mmol/L LAB CHEMISTRY METHOD 04/16/2025 11:46 AM [facility] CO2 29 21 - 32 mmol/L LAB CHEMISTRY METHOD 04/16/2025 11:46 AM [facility] Anion Gap 4 3 - 11 LAB CHEMISTRY METHOD 04/16/2025 11:46 AM [facility] Glucose 77 70 - 100 mg/dL LAB CHEMISTRY METHOD 04/16/2025 11:46 AM [facility] BUN 12 5 - 25 mg/dL LAB CHEMISTRY METHOD 04/16/2025 11:46 AM [facility] Creatinine 0.58 0.50 - 1.10 mg/dL LAB CHEMISTRY METHOD 04/16/2025 11:46 AM [facility] eGFR 91 >=60 mL/min/1. 73m2 LAB CHEMISTRY METHOD 04/16/2025 11:46 AM [facility] Comment:Calculation based on the Chronic Kidney Disease Epidemiology Collaboration (CKD-EPI) equation refit without adjustment for race. BUN/Creatinine Ratio 20.7 LAB CHEMISTRY METHOD 04/16/2025 11:46 AM [facility] Calcium 8.4(L) 8.5 - 10.5 mg/dL LAB CHEMISTRY METHOD 04/16/2025 11:46 AM [facility] AST (SGOT) 29 10 - 42 unit/L LAB CHEMISTRY METHOD 04/16/2025 11:46 AM [facility] ALT (SGPT) 46 10 - 60 unit/L LAB CHEMISTRY METHOD 04/16/2025 11:46 AM [facility] Alkaline Phosphatase 87 42 - 121 unit/L LAB CHEMISTRY METHOD 04/16/2025 11:46 AM [facility] Total Protein 6.2 6.0 - 8.0 g/dL LAB CHEMISTRY METHOD 04/16/2025 11:46 AM [facility] Albumin 3.3 3.2 - 5.0 g/dL LAB CHEMISTRY METHOD 04/16/2025 11:46 AM [facility] Total Bilirubin 0.7 0.0 - 1.4 mg/dL LAB CHEMISTRY METHOD 04/16/2025 11:46 AM [facility] Blood Venous blood specimen / Unknown Venipuncture / Unknown 04/16/2025 7:45 AM EST 04/16/2025 10:38 AM EST us Alexx Grimes MD LAB BLOOD ORDERABLES Final Resu lt [facility] [address] [place] [address], [place] [phone] * Basic metabolic panel (04/12/2025 6:39 AM EST) Sodium 137 133 - 145 mmol/L LAB CHEMISTRY METHOD 04/12/2025 11:03 AM [facility] Potassium 4.2 3.5 - 5.5 mmol/L LAB CHEMISTRY METHOD 04/12/2025 11:03 AM [facility] Chloride 104 96 - 110 mmol/L LAB CHEMISTRY METHOD 04/12/2025 11:03 AM [facility] CO2 27 21 - 32 mmol/L LAB CHEMISTRY METHOD 04/12/2025 11:03 AM [facility] Anion Gap 6 3 - 11 LAB CHEMISTRY METHOD 04/12/2025 11:03 AM [facility] Glucose 82 70 - 100 mg/dL LAB CHEMISTRY METHOD 04/12/2025 11:03 AM [facility] BUN 12 5 - 25 mg/dL LAB CHEMISTRY METHOD 04/12/2025 11:03 AM [facility] Creatinine 0.51 0.50 - 1.10 mg/dL LAB CHEMISTRY METHOD 04/12/2025 11:03 AM [facility] eGFR 94 >=60 mL/min/1. [...] MD LAB BLOOD ORDERABLES Final Resu lt [facility] [address] [place] [address], [place] [phone] from Last 3 Months Insurance [facility] MEDICARE ADVANTAGE Care Teams Dock Operations Supervisor Relationship Specialty Start Date End Date Colten Rogers PA [address] [place] [phone] PCP - General 04/06/25
--- OUTSIDE RECORDS SUMMARY | 2025-05-18 08:41 | XMS_ITS | Encounter Summary ---
Author Organization [facility] Address [address] [place] [address] Care Team Providers Care Hydraulic Engineer Name Role Phone Colten Rogers Primary Care Provider +1 [phone] Encounter Details Date Type Department Care Team (Late st Contact Info) Description 04/20/2025 Lab Requisition [facility] - Main Lab [address] [facility] [place] [phone] Alexx Grimes MD [address] [place] [phone] Hyperlipidemia, unspecified; Unspecified asthma, uncomplicated; Muscle weakness [...] (generalized) documented in this encounter Care Teams Hydraulic Engineer Relationship Specialty Start Date End Date Colten Rogers PA [address] [place] [phone] PCP - General 04/06/25 documented as of this encounter
--- OUTSIDE RECORDS SUMMARY | 2025-05-18 08:42 | XMS_ITS | Patient Health Record ---
Author Organization [facility] [place] Address [address] [place] [address] Care Team Providers Care Nut Picker Name Role Phone Jayme FOWLER, Janelle Primary Care Provider Unavail able Black, Tata Unavailable [phone] PericChelly najera Unavailable [phone] Allergies Allergen (clinical drug ingredient) Drug/Non Drug [...] Problem Acquired hammer toe of right foot (7345625357483241) Other hammer toe(s) (acquired), right foot (M20.41) Active confirmed Problem Acquired hammer toe of left foot (6430953335273987) Other hammer toe(s) (acquired), left foot (M20.42) Active confirmed Problem Hallux valgus of right foot (1624983845) Hallux valgus of right foot (M20.11) Active confirmed Problem Hallux valgus of left foot (6930471003) Hallux valgus of left foot (M20.12) Active confirmed Problem Localized, primary osteoarthritis of the ankle and/or foot (707080175) Arthritis of joint of lesser toe, left (M19.072) Active confirmed Problem Localized, primary osteoarthritis of the ankle and/or foot (782694714) Arthritis of joint of lesser toe, right (M19.071) Active confirmed Vital Signs Blood pressure diastolic 65 mm Hg 05/11/2025 Height 5 ft 5 in in 05/11/2025 Blood pressure systolic 126 mm Hg 05/11/2025 Weight 130 lbs 05/11/2025 BMI 21.63 kg/m2 05/11/2025 Procedures Procedure Date Ordered Date Performed Result Body Sit e 28133-HNLUVWD NAIL, 6 OR MORE 06/29/2024 N/A 60054-HOWBMRK NAIL, 6 OR MORE 2024 N/A 72824-UZYTPBI NAIL, 6 OR MORE 01/04/2025 N/A Encounters Encounter Location Date Provider Diagnosis [address] [address] 06/29/2024 Tata Black Other hammer toe(s) (acquired), [...] and Hallux valgus of left foot M20.[address] [address] 2024 Tata Black Onychomycosis B35.1 ; Other hammer toe(s) (acquired), left foot M20.42 ; Pain in right toe(s) M79.674 ; Pain in left toe(s) M79.675 and Arthritis of joint of lesser toe, left M19.[address] [address] 01/04/2025 Tata Black Onychomycosis B35.1 ; Other hammer toe(s) (acquired), left foot M20.42 ; Pain in right toe(s) M79.674 ; Pain in left toe(s) M79.675 and Arthritis of joint of lesser toe, left M19.[address] [address] 05/11/2025 Chelly Perry Onychomycosis B35.1 ; Other hammer toe(s) (acquired), left foot M20.42 ; Pain in right toe(s) M79.674 ; Pain in left toe(s) M79.675 ; Arthritis of joint of lesser toe, left M19.072 ; Other hammer toe(s) (acquired), right foot M20.41 ; Hallux valgus (acquired), left foot M20.12 and Hallux valgus of right foot M20.[address] [address] 06/14/2024 Chelly Perry [address] [address] 01/04/2025 Tata Coates [address] [address] 04/05/2025 Tata Coates Assessments Encounter Date Diagnosis [...] X ray : Foot, right 3V 06/29/2024 66823-RKNRUWV NAIL, 6 OR MORE 2024 32098-DYVIZQE NAIL, 6 OR MORE 01/04/2025 71234-EKMAVGD NAIL, 6 OR MORE 06/29/2024 65529- Nail Unit Biopsy 04/28/2017 Next Appt Details Provider Name:Tata A Jaxon , 08/23/2025 10:00:00 AM, [address] [place] [address], [phone], Insurance Providers Payer Name Payer Address Payer Phone Subscriber Number Group Number Insured Name Patient Relationship to Insured Coverage Start Date Coverage End Date [facility] [address] [place] [address] [phone] [id number] Aysha Madison Self - patient is the insured Medical (General) History Medical History History ICD Code mumps measles chicken pox asthma Broken bones CAD (Cholesterol) Cataracts covid-19 Gout Sciatica Meningioma Glaucoma Surgical History Surgery Date(Month/Year) tonsillectomy and adenoidectomy cataract surgery 2010 left hip surgery 04/04/2025
== END 2025-05-17 08:32 | disposition home or self-care (01) ==
LOC: HO.HOSX 08:31
PROVIDERS: Visit Provider Physician Assistant
DX: M25.552 Pain in left hip (principal); Z96.642 Presence of left artificial hip joint; Z91.81 History of falling
CPT/HCPCS: 72170; 99212

== ENCOUNTER 2025-05-17 12:48 | Outpatient (AMB) | payer MEDICARE, SELFPAY ==
--- OUTSIDE RECORDS SUMMARY | 2024-08-08 05:30 | XMS_ITS ---
Author Organization [facility] Address [address] [place] [address] Care Team Providers Care 411 Directory Assistance Operator Name Role Phone Jayme FOWLER, Janelle Primary Care Provider Unavail able Black, Tata Unavailable [phone] Chelly Perry Unavailable [phone] Allergies Allergen (clinical drug ingredient) Drug/Non Drug [...] No Encounters Encounter Location Date Provider Diagnosis [facility] [place] [address] [place] [address] 08/08/2024 Chelly Perry Plan Of Treatment Next Appt Details Provider Name:Tata Coates , 08/23/2025 10:00:00 AM, [address] [place], [address], Progress Notes * Aysha MADISON CDOB: [birth year] (79 yo F)Acc No.[id number]:08/08/2024 Progress Notes Patient: Aysha SINGH Provider: Varsha Perry DPM :1945 A ge:78 Y S ex:Female Date:08/08/2024 Address:[address] [place], [place] [id number] Pcp:Janelle Delacruz NP Subjective: * Chief Complaints: [...] enies. C ardiovascular: Pacemaker d enies. 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 W PW d enies. C [...] of unspecified site, Unspecified heart disease. M atenena Grand Mother: heart attack, foot problems. M ras Grand Father: stroke. M aternavarsha aunt: arthritis, foot problems.?Siblings: defects. * Social [...] provider. Sign off status: Pending * Provider: Varsha Perry DPM Date: 0 08/08/2024 Generated for Sarah Cruz/[place] on: 1 07/18/2024 04:40 PM EST
--- OUTSIDE RECORDS SUMMARY | 2025-04-09 06:30 | XMS_ITS ---
Author Organization [facility] Address [address] [place] [address] Care Team Providers Care Environmental Health Sanitarian Name Role Phone Jayme FOWLER, Janelle Primary Care Provider Unavail able JaxonWarrenTata Unavailable [phone] Encounters Encounter Location Date Provider Diagnosis [address] [address] 04/09/2025 Tata Coates Plan Of Treatment Next Appt Details Provider Name:Tata Coates , 08/23/2025 10:00:00 AM, [address] [place] [address], [phone], Progress Notes * Aysha MADISON CDOB: [birth year] (79 yo F)Acc No.[id number]:04/09/2025 Progress Note Patient: Pita Aysha STEELE Provider: César Coates DPM :1945 A ge:79 Y S ex:Female Date:04/09/2025 Address:[address] [place] [address] Pcp:Janelle Delacruz NP Subjective: * Chief Complaints: [...] 1 06/09/2024 Generated for Sarah emery/Olaf/Kenyetta on: 07/18/2024 04:40 PM EST
--- NOTE | 2025-05-17 13:06 | MHC.OFFVIS ---
Vital Signs 05/17/25 13:19 Height 5 ft 5 in Weight 142 lb BMI 23.6 Intake Visit Reasons: PO- left hip lillian 04/04/25 with NE Intake Note: Aysha is a 79 year old female who presents today for a post operative appointment status post left hip hemiarthroplasty done on 04/04/25 by . At her last visit she was advised to continue with physical therapy. Patient reports she is doing well and she has a couple questions. Allergies erythromycin base (Erythromycin Base) Allergy (Unknown, Verified 05/17/25 13:19) Nausea HPI Comments Details: History of Present Illness The patient is an 79-year-old female presenting for a routine follow-up visit status post left hip hemiarthroplasty performed on April 04, 2025. She reports doing well and denies any pain or discomfort. She has been ambulating without a walker or cane inside her house. The patient's hip fracture was the result of a fall, which she believes may have been caused by her known history of a meningioma. She describes the event as a sudden loss of balance without any loss of consciousness, and notes she has fallen several times in the past. The patient is receiving home physical therapy, which is scheduled to conclude on May 31. Her primary care provider recently noted elevated liver enzymes on a blood test, which was attributed to Tylenol use. The patient denies taking any narcotics. Pain Description - The patient denies any pain or discomfort. Results - Imaging: X-rays of the left hip shows satisfactory alignment of the prosthesis with no signs of periprosthetic fractureor loosening. [facility] Medical History (Updated 05/17/25 @ 13:43 by Francine Carroll PA-C) Asthma Surgical History (Updated 05/17/25 @ 13:43 by Francine Carroll PA-C) S/P ear surgery H/O dilation and curettage Hx of tonsillectomy Social History Household Members: Family Housing: House Do you presently have visiting nurse or other home services: No Patient Tobacco Use Status: Never used Tobacco service: No Review of Systems Narrative Review of Systems - General: Denies pain or discomfort. - Musculoskeletal: No longer requires a walker or cane for ambulation in the house. - Neurological: Reports a history of meningioma and a past episode of sudden loss of balance resulting in a fall. - Denies loss of consciousness. Const All systems reviewed & are unremarkable except as noted in HPI and below Physical Exam Exam Exam: Physical Exam Vital Signs: BMI result Body Mass Index 23.6 Const General: cooperative, healthy appearing and no acute distress Resp Effort & Inspection: normal respiratory effort and able to speak in complete sentences Extrem Other: Left hip: No signs of infection. Able to perform a straight leg raise. Good internal external rotation. Able to dorsiflex and plantar flex. NVI. Psych Appearance: grossly normal Mental Status: mental status grossly normal Attitude: cooperative Assessment & Plan Assessment & Plan (1) Status post hemiarthroplasty of left hip: Code(s): Z96.642 - Presence of left artificial hip joint Category: Surgical (2) History of fall: Code(s): Z91.81 - History of falling Category: Medical Plan 1. Status Post Left Hip Hemiarthroplasty The patient is recovering very well from her surgery, demonstrating impressive progress by ambulating at home without an assistive device. It was recommended she continue hip precautions, for approximately three months post-op to allow for soft tissue healing and reduce the risk of dislocation. However, the patient should always be mindful of these restrictions and the possibility of dislocation. Given her excellent progress, she can discontinue formal home physical therapy after May 31 and continue with her home exercise program independently. Patient will follow up in 6 weeks with repeat x-rays, sooner if needed. 2. History Of Fall The patient's fall risk was discussed in the context of her history of meningioma and previous falls. She was advised to use her discretion regarding assistive devices for outdoor ambulation, especially on icy surfaces. She plans to start with a cane and use a walker when needed, with the goal of discontinuing them once she feels more confident and secure. Consent: Patient was informed and verbally consented to the use of an ambient scribe for clinic note documentation during this visit. Orders: Orders XR pelvis 1-2V Today M25.559 - Pain in unspecified hip Coding Level of Care Code Global (79070) Diagnoses Status post hemiarthroplasty of left hip Z96.642 History of fall Z91.81
[2025-05-17 13:19] VITALS: BMI 23.6
--- OUTSIDE RECORDS SUMMARY | 2025-05-17 16:41 | XMS_ITS | Patient Health Record ---
Author Organization [facility] Address [address] [place] [address] Care Team Providers Care Calibration Laboratory Technician Name Role Phone Jayme FOWLER, Janelle Primary Care Provider Unavail able Black, Tata Unavailable [phone] PericChelly najera Unavailable [phone] Allergies Allergen (clinical drug ingredient) Drug/Non Drug Allergy documented on EMR Reaction Allergy Type Onset Date Status erythromycin erythromycin nausea Drug Allergy A ctive Reason For Referral No Information Medications Medication SIG (Take, Route, Frequency, Duration) Notes Start Date End Date Status Aspirin Adult Low Strength 81 MG 1 tablet Orally Once a day; Duration: 30 day(s) Not-Taking Fluzone Not-Taking Atorvastatin Calcium 10 MG 1 tablet Oral ly Once a day Active Ibandronate Sodium 150 MG Orally Not-Taking Albuterol Sulfate HFA 108 (90 Base) MCG/ACT 1 puff as needed Inhalation every 4 hrs PRN Active Advair Diskus Not-Ta gael Atorvastatin Calcium Active Keflex 500 MG 1 capsule Orally Fou r times a day; Duration: 10 day(s) 01/23/2015 Not-Taking Calcium Citrate + 315-200 MG-UNIT 1 tablet with meals Orally Twice a day; Duration: 30 day(s) Not-Taking Colcrys 0.6 MG 1 tablet Orally Once a day; Duration: 10 days Not-Takin g Colcrys 0.6 MG 1 tablet Orally Once a day; Duration: 10 days 01/23/2015 Not-Takin g Flovent HFA 110 MCG/ACT 1 puff Inhalatio n Twice a day Not-Taking Wixela Inhub Not-Aaron ing Brimonidine Tartrate 0.2 % Ophthalmic; D uration: 42 Days Active Brimonidine Tartrate 0.2 % Ophthalmic; D uration: 30 Days Active Wixela Inhub 250-50 MCG/ACT 1 puff Inhalation Twice a day Active Multivitamin Active Vitamin D3 400 UNIT as directed Orally Not-Taking Vitamin D Active Multivitamins as directed Orally Not-Taking Flaxseed Oil Active Proventil HFA 108 (90 Base) MCG/ACT 2 puffs as needed Inhalation every 4 hrs Not-Takin g Albuterol prn Not-Taking Immunizations Vaccine Route Administration Date Status Comme nts Influenza Unknown 03/02/2025 Administered COVID-19 Moderna Vaccine Unknown 03/02/2025 Administere d Social History Tobacco Use: Social History Observation [...] Problem Acquired hammer toe of right foot (2741394981319165) Other hammer toe(s) (acquired), right foot (M20.41) Active confirmed Problem Acquired hammer toe of left foot (1752180633797997) Other hammer toe(s) (acquired), left foot (M20.42) Active confirmed Problem Hallux valgus of right foot (6031798262) Hallux valgus of right foot (M20.11) Active confirmed Problem Hallux valgus of left foot (7170567674) Hallux valgus of left foot (M20.12) Active confirmed Problem Localized, primary osteoarthritis of the ankle and/or foot (523162303) Arthritis of joint of lesser toe, left (M19.072) Active confirmed Problem Localized, primary osteoarthritis of the ankle and/or foot (612931307) Arthritis of joint of lesser toe, right (M19.071) Active confirmed Vital Signs Blood pressure diastolic 65 mm Hg 05/11/2025 Height 5 ft 5 in in 05/11/2025 Blood pressure systolic 126 mm Hg 05/11/2025 Weight 130 lbs 05/11/2025 BMI 21.63 kg/m2 05/11/2025 Procedures Procedure Date Ordered Date Performed Result Body Sit e 22667-NVXRZYX NAIL, 6 OR MORE 06/29/2024 N/A 87228-GGWMLJE NAIL, 6 OR MORE 2024 N/A 85810-VOPOBUN NAIL, 6 OR MORE 01/04/2025 N/A Encounters Encounter Location Date Provider Diagnosis [address] [address] 06/29/2024 Tata Black Other hammer toe(s) (acquired), [...] and Hallux valgus of left foot M20.[address] [address] 2024 Tata Black Onychomycosis B35.1 ; Other hammer toe(s) (acquired), left foot M20.42 ; Pain in right toe(s) M79.674 ; Pain in left toe(s) M79.675 and Arthritis of joint of lesser toe, left M19.[address] [address] 01/04/2025 Tata Black Onychomycosis B35.1 ; Other hammer toe(s) (acquired), left foot M20.42 ; Pain in right toe(s) M79.674 ; Pain in left toe(s) M79.675 and Arthritis of joint of lesser toe, left M19.[address] [address] 05/11/2025 Chelly Perry Onychomycosis B35.1 ; Other hammer toe(s) (acquired), left foot M20.42 ; Pain in right toe(s) M79.674 ; Pain in left toe(s) M79.675 ; Arthritis of joint of lesser toe, left M19.072 ; Other hammer toe(s) (acquired), right foot M20.41 ; Hallux valgus (acquired), left foot M20.12 and Hallux valgus of right foot M20.[address] [address] 06/14/2024 Chelly Perry [address] [address] 01/04/2025 Tata Coates [address] [address] 04/05/2025 Tata Coates Assessments Encounter Date Diagnosis (ICD Code) Assessment Notes Treatment Notes Treatment Clinical Notes Section Notes 06/29/2024 Other hammer toe(s) (acquired), right foot (ICD-10 - M20.41) 06/29/2024 Onychomycosis (ICD-1 0 - B35.1) 2024 Other hammer toe(s) (acquired), left foot (ICD-10 - M20.42) 2024 Onychomycosis (ICD-1 0 - B35.1) 01/04/2025 Onychomycosis (ICD-1 0 - B35.1) 05/11/2025 Other hammer toe(s) (acquired), left foot (ICD-10 - M20.42) 05/11/2025 Onychomycosis (ICD-1 0 - B35.1) 05/11/2025 Pain in right toe(s) (ICD-10 - M79.674) 01/04/2025 Other hammer toe(s) (acquired), left foot (ICD-10 - M20.42) 2024 Pain in right toe(s) (ICD-10 - M79.674) 06/29/2024 Pain in right toe(s) (ICD-10 - M79.674) 06/29/2024 Arthritis of joint o f lesser toe, right (ICD-10 - M19.071) 01/04/2025 Pain in right toe(s) (ICD-10 - M79.674) 2024 Pain in left toe(s) (ICD-10 - M79.675) 05/11/2025 Pain in left toe(s) (ICD-10 - M79.675) 05/11/2025 Arthritis of joint o f lesser toe, left (ICD-10 - M19.072) 2024 Arthritis of joint o f lesser toe, left (ICD-10 - M19.072) 01/04/2025 Pain in left toe(s) (ICD-10 - M79.675) 06/29/2024 Pain in left toe(s) (ICD-10 - M79.675) 06/29/2024 Other hammer toe(s) (acquired), left foot (ICD-10 - M20.42) 05/11/2025 Other hammer toe(s) (acquired), right foot (ICD-10 - M20.41) 01/04/2025 Arthritis of joint o f lesser toe, left (ICD-10 - M19.072) 05/11/2025 Hallux valgus (acquired), left foot (ICD-10 - M20.12) 06/29/2024 Arthritis of joint o f lesser toe, left (ICD-10 - M19.072) 06/29/2024 Subluxation of metatarsophalangeal joint of toe, initial encounter (ICD-10 - S93.149A) 05/11/2025 Hallux valgus of rig ht foot (ICD-10 - M20.11) 06/29/2024 Hallux valgus of rig ht foot (ICD-10 - M20.11) 06/29/2024 Hallux valgus of lef t foot (ICD-10 - M20.12) Plan Of Treatment Pending Test Test Name Order Date *Uric Acid, Serum 01/23/2015 *Sedimentation Rate-Westergren 5 X ray : Foot, left 3V 01/23/2015 X ray : Foot, left 3V 06/29/2024 X ray : Foot, right 3V 06/29/2024 43550-DEKPFCO NAIL, 6 OR MORE 2024 06773-OPNHBRQ NAIL, 6 OR MORE 01/04/2025 23505-MIFOWZN NAIL, 6 OR MORE 06/29/2024 94686- Nail Unit Biopsy 04/28/2017 Next Appt Details Provider Name:Tata A Jaxon , 08/23/2025 10:00:00 AM, [address] [place] [address], [phone], Insurance Providers Payer Name Payer Address Payer Phone Subscriber Number Group Number Insured Name Patient Relationship to Insured Coverage Start Date Coverage End Date [facility] [address] [place] [address] [phone] [id number] Aysha Madison Self - patient is the insured Medical (General) History Medical History History ICD Code mumps measles chicken pox asthma Broken bones CAD (Cholesterol) Cataracts covid-19 Gout Sciatica Meningioma Glaucoma Surgical History Surgery Date(Month/Year) tonsillectomy and adenoidectomy cataract surgery 2010 left hip surgery 04/04/2025
--- OUTSIDE RECORDS SUMMARY | 2025-05-17 16:41 | XMS_ITS | Encounter Summary ---
Author Organization [facility] Address [address] [place] [address] Care Team Providers Care Continuity Manager Name Role Phone Colten Rogers Primary Care Provider [phone] Encounter Details Date Type Department Care Team (Late st Contact Info) Description 04/20/[address] [facility] - Main Lab [address] [facility] [place] [phone] Alexx Grimes MD [address] [place] [phone] Hyperlipidemia, unspecified; Unspecified asthma, uncomplicated; Muscle weakness [...] on file documented as of this encounter Visit Diagnoses Diagnosis Hyperlipidemia, unspecified Unspecified asthma, uncomplicated Muscle weakness (generalized) documented in this encounter Care Teams Continuity Manager Relationship Specialty Start Date End Date Colten Rogers PA [address] [place] [address] PCP - General 04/06/25 documented as of this encounter
--- OUTSIDE RECORDS SUMMARY | 2025-05-17 16:41 | XMS_ITS | Encounter Summary ---
Author Organization [facility] Address [address] [place] [address] Care Team Providers Care Retail Parts Professional Name Role Phone Colten Rogers Primary Care Provider +1 [phone] Encounter Details Date Type Department Care Team (Latest Contact Info) Description 04/11/2025 Lab Requisition [facility] - Main Lab 299 [facility]ly [facility] [place] [phone] Alexx Grimes MD [address] [place] [address] Hyperlipidemia, unspecified; Muscle weakness (generalized); [...] Complete blood count (04/12/2025 6:39 AM EST) [facility] WBC 8.7 4.8 - 10.8 K/mcL LAB HEMETOLOGY METHOD 04/12/2025 10:39 AM [facility] LAB RBC 3.60(L) 3.80 - 4.80 M/mcL LAB HEMETOLOGY METHOD 04/12/2025 10:39 AM [facility] LAB Hemoglobin 11.4(L) 11.5 - 16.0 g/dL LAB HEMETOLOGY METHOD 04/12/2025 10:39 AM [facility] LAB Hematocrit 33.2(L) 35.0 - 47.0 % LAB HEMETOLOGY METHOD 04/12/2025 10:39 AM [facility] LAB MCV 92.2 79.0 - 98.0 FL LAB HEMETOLOGY METHOD 04/12/2025 10:39 AM [facility] LAB MCH 31.7 27.0 - 32.0 pcg LAB HEMETOLOGY METHOD 04/12/2025 10:39 AM [facility] LAB MCHC 34.3 32.0 - 37.0 g/dL LAB HEMETOLOGY METHOD 04/12/2025 10:39 AM [facility] LAB RDW 13.3 11.0 - 15.0 % LAB HEMETOLOGY METHOD 04/12/2025 10:39 AM [facility] LAB Platelets 409(H) 130 - 400 K/mcL LAB HEMETOLOGY METHOD 04/12/2025 10:39 AM [facility] LAB MPV 9.2 7.0 - 11.0 FL LAB HEMETOLOGY METHOD 04/12/2025 10:39 AM [facility] LAB NRBC 0.0 <1.0 % LAB HEMETOLOGY METHOD 04/12/2025 10:39 AM [facility] LAB NRBC Absolute 0.00 <0.10 K/mcL LAB HEMETOLOGY METHOD 04/12/2025 10:39 AM [facility] LAB Blood Venous blood specimen / Unknown Venipuncture / Unknown 04/12/2025 6:39 AM EST 04/12/2025 10:20 AM EST Alexx Grimes MD LAB BLOOD ORDERABLES Final Resu lt [facility] LAB [address] [place] [address], [place] [phone] * Basic metabolic panel (04/12/2025 6:39 AM EST) Sodium 137 133 - 145 mmol/L LAB CHEMISTRY METHOD 04/12/2025 11:03 AM [facility] LAB Potassium 4.2 3.5 - 5.5 mmol/L LAB CHEMISTRY METHOD 04/12/2025 11:03 AM [facility] LAB Chloride 104 96 - 110 mmol/L LAB CHEMISTRY METHOD 04/12/2025 11:03 AM [facility] LAB CO2 27 21 - 32 mmol/L LAB CHEMISTRY METHOD 04/12/2025 11:03 AM [facility] LAB Anion Gap 6 3 - 11 LAB CHEMISTRY METHOD 04/12/2025 11:03 AM [facility] LAB Glucose 82 70 - 100 mg/dL LAB CHEMISTRY METHOD 04/12/2025 11:03 AM [facility] LAB BUN 12 5 - 25 mg/dL LAB CHEMISTRY METHOD 04/12/2025 11:03 AM [facility] LAB Creatinine 0.51 0.50 - 1.10 mg/dL LAB CHEMISTRY METHOD 04/12/2025 11:03 AM [facility] LAB eGFR 94 >=60 mL/min/1. 73m2 LAB CHEMISTRY METHOD 04/12/2025 11:03 AM [facility] LAB Comment:Calculation based on the Chronic Kidney Disease Epidemiology Collaboration (CKD-EPI) equation refit without adjustment for race. BUN/Creatinine Ratio 23.5 LAB CHEMISTRY METHOD 04/12/2025 11:03 AM EST [facility] LAB Calcium 8.6 8.5 - 10.5 mg/dL LAB CHEMISTRY METHOD 04/12/2025 11:03 AM EST [facility] LAB Blood Venous blood specimen / Unknown Venipuncture / Unknown 04/12/2025 6:39 AM EST 04/12/2025 10:19 AM EST us Alexx Grimes MD LAB BLOOD ORDERABLES Final Resu lt [facility] LAB [address] [place] [address], documented in this encounter Visit Diagnoses Diagnosis Hyperlipidemia, unspecified Muscle weakness (generalized) Unspecified asthma, uncomplicated documented in this encounter Care Teams [employer] Professional Relationship Specialty Start Date End Date Colten Rogers PA [address] [place] [phone] PCP - General 04/06/25 documented as of this encounter
--- OUTSIDE RECORDS SUMMARY | 2025-05-17 16:41 | XMS_ITS | Clinical Summary ---
Author Organization [facility] Address [address] [place] [address] Phone Care Team Providers Care Associate Editor Name Role Phone Colten Rogers Primary Care Provider +1 [phone] Encounters Date Type Department Care Team Description 04/20/2025 Lab Requisition [facility] Lab [address] [place] [phone] Alexx Grimes MD Hyperlipidemia, unspecified; Unspecified asthma, uncomplicated; Muscle weakness (generalized) 04/14/2025 Lab Requisition [facility] Lab [address] [place] [phone] Alexx Grimes MD Hyperlipidemia, unspecified; Unspecified asthma, uncomplicated; Muscle weakness (generalized) 04/11/2025 Lab Requisition [facility] Lab [address] [place] [phone] Alexx Grimes MD Hyperlipidemia, unspecified; Muscle weakness (generalized); Unspecified asthma, uncomplicated 04/08/2025 Lab Requisition [facility] Lab [address] [place] [phone] Alexx Grimes MD Displaced fracture of base [...] K/mcL LAB HEMETOLOGY METHOD 04/16/2025 11:08 AM [facility] LAB RBC 3.80 3.80 - 4.80 M/mcL LAB HEMETOLOGY METHOD 04/16/2025 11:08 AM [facility] LAB Hemoglobin 12.1 11.5 - 16.0 g/dL LAB HEMETOLOGY METHOD 04/16/2025 11:08 AM [facility] LAB Hematocrit 36.0 35.0 - 47.0 % LAB HEMETOLOGY METHOD 04/16/2025 11:08 AM [facility] LAB MCV 93.8 79.0 - 98.0 FL LAB HEMETOLOGY METHOD 04/16/2025 11:08 AM [facility] LAB MCH 31.5 27.0 - 32.0 pcg LAB HEMETOLOGY METHOD 04/16/2025 11:[address] [facility] LAB MCHC 33.6 32.0 - 37.0 g/dL LAB HEMETOLOGY METHOD 04/16/2025 11:08 AM [facility] LAB RDW 13.8 11.0 - 15.0 % LAB HEMETOLOGY METHOD 04/16/2025 11:08 AM [facility] LAB Platelets 451(H) 130 - 400 K/mcL LAB HEMETOLOGY METHOD 04/16/2025 11:08 AM [facility] LAB MPV 9.3 7.0 - 11.0 FL LAB HEMETOLOGY METHOD 04/16/2025 11:08 AM [facility] LAB NRBC 0.0 <1.0 % LAB HEMETOLOGY METHOD 04/16/2025 11:08 AM [facility] LAB NRBC Absolute 0.00 <0.10 K/mcL LAB HEMETOLOGY METHOD 04/16/2025 11:08 AM [facility] LAB Blood Venous blood specimen / Unknown Venipuncture / Unknown 04/16/2025 7:45 AM EST 04/16/2025 10:38 AM EST us Alexx Grimes MD LAB BLOOD ORDERABLES Final Resu lt [facility] LAB [address] [place] [address], * (ABNORMAL) Comprehensive metabolic panel (04/16/2025 7:45 AM EST) Only the most recent of2 resultswithin the time period is included. Sodium 137 133 - 145 mmol/L LAB CHEMISTRY METHOD 04/16/2025 11:46 AM [facility] LAB Potassium 4.3 3.5 - 5.5 mmol/L LAB CHEMISTRY METHOD 04/16/2025 11:46 AM [facility] LAB Chloride 104 96 - 110 mmol/L LAB CHEMISTRY METHOD 04/16/2025 11:46 AM [facility] LAB CO2 29 21 - 32 mmol/L LAB CHEMISTRY METHOD 04/16/2025 11:46 AM [facility] LAB Anion Gap 4 3 - 11 LAB CHEMISTRY METHOD 04/16/2025 11:46 AM [facility] LAB Glucose 77 70 - 100 mg/dL LAB CHEMISTRY METHOD 04/16/2025 11:46 AM [facility] LAB BUN 12 5 - 25 mg/dL LAB CHEMISTRY METHOD 04/16/2025 11:46 AM [facility] LAB Creatinine 0.58 0.50 - 1.10 mg/dL LAB CHEMISTRY METHOD 04/16/2025 11:46 AM [facility] LAB eGFR 91 >=60 mL/min/1. 73m2 LAB CHEMISTRY METHOD 04/16/2025 11:46 AM [facility] LAB Comment:Calculation based on the Chronic Kidney Disease Epidemiology Collaboration (CKD-EPI) equation refit without adjustment for race. BUN/Creatinine Ratio 20.7 LAB CHEMISTRY METHOD 04/16/2025 11:46 AM [facility] LAB Calcium 8.4(L) 8.5 - 10.5 mg/dL LAB CHEMISTRY METHOD 04/16/2025 11:46 AM [facility] LAB AST (SGOT) 29 10 - 42 unit/L LAB CHEMISTRY METHOD 04/16/2025 11:46 AM [facility] LAB ALT (SGPT) 46 10 - 60 unit/L LAB CHEMISTRY METHOD 04/16/2025 11:46 AM [facility] LAB Alkaline Phosphatase 87 42 - 121 unit/L LAB CHEMISTRY METHOD 04/16/2025 11:46 AM [facility] LAB Total Protein 6.2 6.0 - 8.0 g/dL LAB CHEMISTRY METHOD 04/16/2025 11:46 AM [facility] LAB Albumin 3.3 3.2 - 5.0 g/dL LAB CHEMISTRY METHOD 04/16/2025 11:46 AM [facility] LAB Total Bilirubin 0.7 0.0 - 1.4 mg/dL LAB CHEMISTRY METHOD 04/16/2025 11:46 AM [facility] LAB Blood Venous blood specimen / Unknown Venipuncture / Unknown 04/16/2025 7:45 AM EST 04/16/2025 10:38 AM EST us Alexx Grimes MD LAB BLOOD ORDERABLES Final Resu lt [facility] LAB [address] [place] [address], [place] [phone] * Basic metabolic panel (04/12/2025 6:39 AM EST) Sodium 137 133 - 145 mmol/L LAB CHEMISTRY METHOD 04/12/2025 11:03 AM [facility] LAB Potassium 4.2 3.5 - 5.5 mmol/L LAB CHEMISTRY METHOD 04/12/2025 11:03 AM [facility] LAB Chloride 104 96 - 110 mmol/L LAB CHEMISTRY METHOD 04/12/2025 11:03 AM [facility] LAB CO2 27 21 - 32 mmol/L LAB CHEMISTRY METHOD 04/12/2025 11:03 AM [facility] LAB Anion Gap 6 3 - 11 LAB CHEMISTRY METHOD 04/12/2025 11:03 AM [facility] LAB Glucose 82 70 - 100 mg/dL LAB CHEMISTRY METHOD 04/12/2025 11:03 AM [facility] LAB BUN 12 5 - 25 mg/dL LAB CHEMISTRY METHOD 04/12/2025 11:03 AM [facility] LAB Creatinine 0.51 0.50 - 1.10 mg/dL LAB CHEMISTRY METHOD 04/12/2025 11:03 AM [facility] LAB eGFR 94 >=60 mL/min/1. 73m2 LAB CHEMISTRY METHOD 04/12/2025 11:[address] [facility] LAB Comment:Calculation based on the Chronic Kidney Disease Epidemiology Collaboration (CKD-EPI) equation refit without adjustment for race. BUN/Creatinine Ratio 23.5 LAB CHEMISTRY METHOD 04/12/2025 11:[address] [facility] LAB Calcium 8.6 8.5 - 10.5 mg/dL LAB CHEMISTRY METHOD 04/12/2025 11:[address] [facility] LAB Blood Venous blood specimen / Unknown Venipuncture / Unknown 04/12/2025 6:39 AM EST 04/12/2025 10:19 AM EST us Alexx Grimes MD LAB BLOOD ORDERABLES Final Resu lt [facility]) [facility] LAB [address] [place] [address], [place] [phone] from Last 3 Months Insurance [facility] MEDICARE ADVANTAGE Care Teams Associate Editor Relationship Specialty Start Date End Date Colten Rogers PA [address] [place] [phone] PCP - General 04/06/25
--- OUTSIDE RECORDS SUMMARY | 2025-05-17 16:41 | XMS_ITS | Patient Health Record ---
Author Organization [facility] Address [address] [place] [phone] Care Team Providers Care Packager Head Name Role Phone Nikita Hall Jr Reason For Referral No Information Plan Of Treatment No Information
--- OUTSIDE RECORDS SUMMARY | 2025-05-17 16:41 | XMS_ITS | Encounter Summary ---
Author Organization [facility] Address [address] [place] [address] Care Team Providers Care Roll Form Operator Name Role Phone Colten Rogers Primary Care Provider +1 [phone] Encounter Details Date Type Department Care Team (Late st Contact Info) Description 04/14/2025 Lab Requisition [facility] - Main Lab 299 [facility] [place] [phone] Alexx Grimes MD [address] [place] [phone] Hyperlipidemia, unspecified; Unspecified asthma, uncomplicated; Muscle weakness [...] Comprehensive metabolic panel (04/16/2025 7:45 AM EST) [facility] Sodium 137 133 - 145 mmol/L LAB CHEMISTRY METHOD 04/16/2025 11:46 AM [facility] LAB Potassium 4.3 3.5 - 5.5 mmol/L LAB CHEMISTRY METHOD 04/16/2025 11:46 AM [facility] LAB Chloride 104 96 - 110 mmol/L LAB CHEMISTRY METHOD 04/16/2025 11:46 AM [facility] LAB CO2 29 21 - 32 mmol/L LAB CHEMISTRY METHOD 04/16/2025 11:46 AM [facility] LAB Anion Gap 4 3 - 11 LAB CHEMISTRY METHOD 04/16/2025 11:46 AM [facility] LAB Glucose 77 70 - 100 mg/dL LAB CHEMISTRY METHOD 04/16/2025 11:46 AM [facility] LAB BUN 12 5 - 25 mg/dL LAB CHEMISTRY METHOD 04/16/2025 11:46 AM [facility] LAB Creatinine 0.58 0.50 - 1.10 mg/dL LAB CHEMISTRY METHOD 04/16/2025 11:46 AM [facility] LAB eGFR 91 >=60 mL/min/1. 73m2 LAB CHEMISTRY METHOD 04/16/2025 11:46 AM [facility] LAB Comment:Calculation based on the Chronic Kidney Disease Epidemiology Collaboration (CKD-EPI) equation refit without adjustment for race. BUN/Creatinine Ratio 20.7 LAB CHEMISTRY METHOD 04/16/2025 11:46 AM [facility] LAB Calcium 8.4(L) 8.5 - 10.5 mg/dL LAB CHEMISTRY METHOD 04/16/2025 11:46 AM [facility] LAB AST (SGOT) 29 10 - 42 unit/L LAB CHEMISTRY METHOD 04/16/2025 11:46 AM [facility] LAB ALT (SGPT) 46 10 - 60 unit/L LAB CHEMISTRY METHOD 04/16/2025 11:46 AM [facility] LAB Alkaline Phosphatase 87 42 - 121 unit/L LAB CHEMISTRY METHOD 04/16/2025 11:46 AM [facility] LAB Total Protein 6.2 6.0 - 8.0 g/dL LAB CHEMISTRY METHOD 04/16/2025 11:46 AM [facility] LAB Albumin 3.3 3.2 - 5.0 g/dL LAB CHEMISTRY METHOD 04/16/2025 11:46 AM [facility] LAB Total Bilirubin 0.7 0.0 - 1.4 mg/dL LAB CHEMISTRY METHOD 04/16/2025 11:46 AM [facility] LAB Blood Venous blood specimen / Unknown Venipuncture / Unknown 04/16/2025 7:45 AM EST 04/16/2025 10:38 AM EST us Alexx Grimes MD LAB BLOOD ORDERABLES Final Resu lt [facility] LAB [address] [place] [address], [place] [phone] * (ABNORMAL) Complete blood count (04/16/2025 7:45 AM EST) WBC 7.7 4.8 - 10.8 K/mcL LAB HEMETOLOGY METHOD 04/16/2025 11:08 AM [facility] LAB RBC 3.80 3.80 - 4.80 M/mcL LAB HEMETOLOGY METHOD 04/16/2025 11:08 AM [facility] LAB Hemoglobin 12.1 11.5 - 16.0 g/dL LAB HEMETOLOGY METHOD 04/16/2025 11:08 AM [facility] LAB Hematocrit 36.0 35.0 - 47.0 % LAB HEMETOLOGY METHOD 04/16/2025 11:08 AM [facility] LAB MCV 93.8 79.0 - 98.0 FL LAB HEMETOLOGY METHOD 04/16/2025 11:08 AM [facility] LAB MCH 31.5 27.0 - 32.0 pcg LAB HEMETOLOGY METHOD 04/16/2025 11:08 AM EST [facility] LAB MCHC 33.6 32.0 - 37.0 g/dL LAB HEMETOLOGY METHOD 04/16/2025 11:08 AM [facility] LAB RDW 13.8 11.0 - 15.0 % LAB HEMETOLOGY METHOD 04/16/2025 11:08 AM [facility] LAB Platelets 451(H) 130 - 400 K/mcL LAB HEMETOLOGY METHOD 04/16/2025 11:08 AM [facility] LAB MPV 9.3 7.0 - 11.0 FL LAB HEMETOLOGY METHOD 04/16/2025 11:08 AM [facility] LAB NRBC 0.0 <1.0 % LAB HEMETOLOGY METHOD 04/16/2025 11:08 AM [facility] LAB NRBC Absolute 0.00 <0.10 K/mcL LAB HEMETOLOGY METHOD 04/16/2025 11:08 AM [facility] LAB Blood Venous blood specimen / Unknown Venipuncture / Unknown 04/16/2025 7:45 AM EST 04/16/2025 10:38 AM EST us Alexx Grimes MD LAB BLOOD ORDERABLES Final Resu lt [facility] [address] [place] [address], documented in this encounter Visit Diagnoses Diagnosis Hyperlipidemia, unspecified Unspecified asthma, uncomplicated Muscle weakness (generalized) documented in this encounter Care Teams Roll Form Operator Relationship Specialty Start Date End Date Colten Rogers PA [address] [place] [address] PCP - General 04/06/25 documented as of this encounter
--- OUTSIDE RECORDS SUMMARY | 2025-05-17 16:41 | XMS_ITS | Encounter Summary ---
Author Organization [facility] Address [address] [place] [address] Care Team Providers Care Shot Fireman Name Role Phone Colten Rogers Primary Care Provider +1 -[phone] Encounter Details Date Type Department Care Team (Late st Contact Info) Description 04/08/2025 Lab Requisition [facility] - Main Lab 299 [facility] [phone] Alexx Grimes MD [address] [place] [phone] Displaced fracture of base of neck of [...] mmol/L LAB CHEMISTRY METHOD 04/08/2025 10:34 AM [facility] LAB Potassium 3.9 3.5 - 5.5 mmol/L LAB CHEMISTRY METHOD 04/08/2025 10:34 AM [facility] LAB Chloride 103 96 - 110 mmol/L LAB CHEMISTRY METHOD 04/08/2025 10:34 AM [facility] LAB CO2 28 21 - 32 mmol/L LAB CHEMISTRY METHOD 04/08/2025 10:34 AM [facility] LAB Anion Gap 5 3 - 11 LAB CHEMISTRY METHOD 04/08/2025 10:34 AM [facility] LAB Glucose 78 70 - 100 mg/dL LAB CHEMISTRY METHOD 04/08/2025 10:34 AM [facility] BUN 9 5 - 25 mg/dL LAB CHEMISTRY METHOD 04/08/2025 10:34 AM [facility] LAB Creatinine 0.43(L) 0.50 - 1.10 mg/dL LAB CHEMISTRY METHOD 04/08/2025 10:34 AM [facility] LAB eGFR 98 >=60 mL/min/1. 73m2 LAB CHEMISTRY METHOD 04/08/2025 10:34 AM [facility] LAB Comment:Calculation based on the Chronic Kidney Disease Epidemiology Collaboration (CKD-EPI) equation refit without adjustment for race. BUN/Creatinine Ratio 20.9 LAB CHEMISTRY METHOD 04/08/2025 10:34 AM [facility] LAB Calcium 7.7(L) 8.5 - 10.5 mg/dL LAB CHEMISTRY METHOD 04/08/2025 10:34 AM [facility] AST (SGOT) 39 10 - 42 unit/L LAB CHEMISTRY METHOD 04/08/2025 10:34 AM [facility] ALT (SGPT) 35 10 - 60 unit/L LAB CHEMISTRY METHOD 04/08/2025 10:34 AM [facility] LAB Alkaline Phosphatase 73 42 - 121 unit/L LAB CHEMISTRY METHOD 04/08/2025 10:34 AM [facility] Total Protein 5.1(L) 6.0 - 8.0 g/dL LAB CHEMISTRY METHOD 04/08/2025 10:34 AM [facility] Albumin 2.5(L) 3.2 - 5.0 g/dL LAB CHEMISTRY METHOD 04/08/2025 10:34 AM [facility] Total Bilirubin 0.7 0.0 - 1.4 mg/dL LAB CHEMISTRY METHOD 04/08/2025 10:34 AM [facility] Blood Venous blood specimen / Unknown Venipuncture / Unknown 04/08/2025 6:17 AM EST 04/08/2025 9:03 AM EST us Alexx Grimes MD LAB BLOOD ORDERABLES Final Resu lt [facility] [address] [place] [address], * (ABNORMAL) Complete blood count (04/08/2025 6:17 AM EST) WBC 7.8 4.8 - 10.8 K/mcL LAB HEMETOLOGY METHOD 04/08/2025 9:55 AM [facility] RBC 3.20(L) 3.80 - 4.80 M/mcL LAB HEMETOLOGY METHOD 04/08/2025 9:55 AM [facility] Hemoglobin 10.1(L) 11.5 - 16.0 g/dL LAB HEMETOLOGY METHOD 04/08/2025 9:55 AM [facility] Hematocrit 29.5(L) 35.0 - 47.0 % LAB HEMETOLOGY METHOD 04/08/2025 9:55 AM [facility] MCV 92.2 79.0 - 98.0 FL LAB HEMETOLOGY METHOD 04/08/2025 9:55 AM [facility] LAB MCH 31.6 27.0 - 32.0 pcg LAB HEMETOLOGY METHOD 04/08/2025 9:55 AM [facility] LAB MCHC 34.2 32.0 - 37.0 g/dL LAB HEMETOLOGY METHOD 04/08/2025 9:55 AM [facility] RDW 12.8 11.0 - 15.0 % LAB HEMETOLOGY METHOD 04/08/2025 9:55 AM [facility] Platelets 252 130 - 400 K/mcL LAB HEMETOLOGY METHOD 04/08/2025 9:55 AM [facility] MPV 10.3 7.0 - 11.0 FL LAB HEMETOLOGY METHOD 04/08/2025 9:55 AM [facility] NRBC 0.0 <1.0 % LAB HEMETOLOGY METHOD 04/08/2025 9:55 AM [facility] NRBC Absolute 0.00 <0.10 K/mcL LAB HEMETOLOGY METHOD 04/08/2025 9:55 AM [facility] Blood Venous blood specimen / Unknown Venipuncture / Unknown 04/08/2025 6:17 AM EST 04/08/2025 9:03 AM EST us Alexx Grimes MD LAB BLOOD ORDERABLES Final Resu lt [facility] [address] [place] [address], [place] [phone] documented in this encounter Visit Diagnoses Diagnosis Displaced fracture of base of neck of left femur, subsequent encounter for closed fracture with routine healing Aftercare following joint replacement surgery Presence of left artificial hip joint documented in this encounter Care Teams Shot Fireman Relationship Specialty Start Date End Date Colten Rogers PA [address] [place] [address] PCP - General 04/06/25 documented as of this encounter
== END 2025-05-17 13:56 | disposition home or self-care (01) ==
LOC: HO.HOS 12:49
PROVIDERS: PCP Nurse Practitioner Family; Visit Provider Physician Assistant
DX: Z96.642 Presence of left artificial hip joint (principal); Z91.81 History of falling
CPT/HCPCS: 99024

== ENCOUNTER → 2025-05-17 12:52 | Outpatient (BNV) | payer MEDICARE, SELFPAY | PROVIDERS: Visit Provider Radiology Diagnostic Radiology | DX: M25.552 Pain in left hip (principal); Z96.642 Presence of left artificial hip joint | CPT/HCPCS: 72170 ==